=== PATIENT | male | born 1940 | race Caucasian/White ===

== ENCOUNTER 2020-01-31 11:34 | Outpatient (CLI) | payer MEDICARE, SELFPAY ==
[2020-01-31 14:04] LABS: Prostate Specific Antigen 0.6 ng/mL (< OR = 4.0)
== END 2020-01-31 11:35 | disposition home or self-care (01) ==
PROVIDERS: PCP Family Medicine; Visit Provider Physician Assistant Medical
DX: N40.0 Benign prostatic hyperplasia without lower urinary tract symptoms (principal); R35.0 Frequency of micturition
CPT/HCPCS: 36415; 84153

== ENCOUNTER 2024-08-16 14:54 | Outpatient (CLI) | payer MEDICARE, SELFPAY ==
--- NOTE | ~2024-08-16 | MR_ITS ---
MRI of the brain Clinical History: Amnesia Technique: Axial and sagittal T1-weighted images were acquired. These were followed by axial T2-weigh vernon, diffusion weighted, gradient, and FLAIR images. Following intravenous administration of 12 cc Pr oHance gadolinium, T1-weighted fat-sat imaging was performed in the axial and coronal planes. Findings: There is a 6 mm enhancing mass in the right side of the dano (series 8 image 7). No other a bnormal postcontrast enhancement identified. There is no acute infarct or intracranial hemorrhage. There are mild chronic microvascular ischemic c hanges in the periventricular white matter bilaterally. Ventricles and subarachnoid spaces are dilated. Orbits are unremarkable. Paranasal sinuses and mastoi d air cells are clear. Major intracranial flow voids are intact. Sagittal midline structures are intact. IMPRESSION: 6 mm enhancing mass in the right side of the dano. This is suspicious for metastasis until proven oth erwise. Reviewed, dictated and finalized at [facility]. IMPRESSION: 6 mm enhancing mass in the right side of the dano. This is suspicious for metas tasis until proven otherwise.
--- OUTSIDE RECORDS SUMMARY | 2024-08-16 15:22 | XMS_ITS | Encounter Summary ---
Author Organization [facility] Address [address] [place] [address] Phone Care Team Providers Care Priming Machine Operator Name Role Phone Bryan Hodgson MD Primary Care Provider [phone] Reason for Visit * Reason Comments Medication Refill Encounter Details Date Type Department Care Team (Late st Contact Info) Description 03/09/2022 Refill [facility] [address] [place] [address] Bryan Hodgson MD [address] [place], [place] [address] Medication Refill Social History Tobacco Use Types Packs/Day Years Used Date Smoking Tobacco: Former Cigarettes 0.5 3 0 01/30/2008 - 2011 Smokeless Tobacco: Never Alcohol Use Standard Drinks/Week Comments Yes 4.2 (1 standard drink = 0.6 oz p ure alcohol) PHQ-2 Answer Date Recorded Total Score - Questions 1-9 0 10/08 Sex and Gender Information Value Date Recorded Sex Assigned at Not on file 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 * Telephone Encounter - Ning Salas RN - 03/09/2022 2:11 PM CDT Last filled on 12/16/21 Last office visit on 01/27/22 documented in this encounter Plan of Treatment Not on file documented as of this encounter Visit Diagnoses Diagnosis Reactive depression Dysthymic disorder documented in this encounter Additional Health Concerns Infection Onset Date Last Indicated Resolved Time COVID - 19 04/12/2022 04/12/2022 04/22/2022 12:1 9 AM ARCHITECTURAL DRAFTSMAN COVID - 19 Confirmed 04/12/2022 04/12/2022 022 12:16 AM ARCHITECTURAL DRAFTSMAN COVID - 19 06/22/2022 06/22/2022 07/02/2022 12:1 6 AM ARCHITECTURAL DRAFTSMAN COVID - 19 06/30/2023 06/30/2023 06/30/2023 2:00 PM ARCHITECTURAL DRAFTSMAN Respiratory Rule-Out 06/08/2024 06/08/2024 025 4:15 PM ARCHITECTURAL DRAFTSMAN Influenza 06/08/2024 06/08/2024 06/15/2024 12:1 6 AM ARCHITECTURAL DRAFTSMAN Assessment Noted Time PHQ-9 Depression Total Score: 0 10/21/19 21 7:00 AM CDT documented as of this encounter Care Teams Priming Machine Operator Relationship Specialty Start Date End Date Bryan Hodgson MD [address] [place] [address] PCP - General 05/11/07 documented as of this encounter
--- OUTSIDE RECORDS SUMMARY | 2024-08-16 15:22 | XMS_ITS | Encounter Summary ---
Author Organization [facility] Address [address] 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 documented in this encounter Additional Health Concerns Infection Onset Date Last Indicated Resolved Time COVID - 19 06/30/2023 06/30/2023 06/30/2023 2:00 PM LICENSED CLUB MANAGER Respiratory Rule-Out 06/08/2024 06/08/2024 025 4:15 PM LICENSED CLUB MANAGER Influenza 06/08/2024 06/08/2024 06/15/2024 12:1 6 AM LICENSED CLUB MANAGER Assessment Noted Time PHQ-9 Depression Total Score: 0 10/21/19 21 7:00 AM CDT documented as of this encounter Care Teams Russet Repairer Relationship Specialty Start Date End Date Bryan Hodgson MD [address] [place] [address] PCP - General 05/11/07 documented as of this encounter
--- OUTSIDE RECORDS SUMMARY | 2024-08-16 15:22 | XMS_ITS | Encounter Summary ---
Author Organization [facility] Address [address] [place] [address] Phone Care Team Providers Care Surface Lay Out Technician Name Role Phone Bryan Hodgson MD Primary Care Provider Reason for Referral * - Pending Review Specialty Diagnoses / Procedures Referred By Ana guillory Referred To Contact Diagnoses Right knee pain, unspecified chronicity Left knee pain, unspecified chronicity Procedures XR KNEE LEFT 3 VIEWS XR KNEE BILATERAL Raiza Diana APRN [address] [place] [address] Phone: tel: fax: [facility] [address] [place] [address] Phone: tel: Referral ID Status Reason Start Date Expiration Date V isits Requested Visits Authorized [id number] Pending Review 10/19/2023 1 1 Encounter Details Date Type Department Care Team (Late st Contact Info) Description 10/20/2023 Transcribe Orders NON [facility] REFERRING DOCS [address] [place] [address] Raiza Diana APRN [address] [place], [place] [id number] Right knee pain, unspecified chronicity (Primary Dx); Left knee pain, unspecified chronicity Social History Tobacco Use Types Packs/Day Years Used Date Smoking Tobacco: Never Assessed Sex and Gender Information Value Date Recorded Sex Assigned at Not on file Legal Sex Male 5:50 PM CDT Gender Identity Not on file Sexual Orientation Not on file documented as of this encounter Plan of Treatment Not on file documented as of this encounter Results * XR KNEE LEFT 3 VIEWS (10/20/2023 7:30 AM CDT) Anatomical Region Laterality Modality Knee Digital Radiogra phy 10/20/2023 7:10 AM CDT Narrative 10/20/2023 8:13 AM CDT Accession Exam Completed Date/Time [id number] XR KNEE LEFT 3 VIEWS 10/20/2023 07:30 Requesting: RAIZA DIANA XR KNEE RIGHT 3 VIEWS, XR KNEE LEFT 3 VIEWS. 10/20/2023 7:10 AM CLINICAL INDICATION: Bilateral knee pain COMPARISON: None. FINDINGS/ IMPRESSION: AP, lateral and sunrise views of both hips were performed. No acute fracture or dislocation. Severe degenerative changes of both knees is seen with bilateral joint space narrowing, most pronounced in the medial tibiofemoral and patellofemoral compartments. There is bilateral [id number] appearance of the medial tibiofemoral compartments. There is osteophytic spurring of the tibial spines. No sizable suprapatellar joint knee joint effusion on either side. Electronically Signed and Authenticated by Linden Lamb MD 10/20/2023 08:13 Procedure Note Linden Lamb MD - 10/20/2023 Accession Exam CompletedDate/Time [id number] XR KNEE LEFT 3 VIEWS 407:30 Requesting: RAIZA DIANA XR KNEE RIGHT 3 VIEWS, XR KNEE LEFT 3 VIEWS. 10/20/2023 7:10 AM CLINICAL INDICATION: Bilateral knee pain COMPARISON: None. FINDINGS/ IMPRESSION: AP, lateral and sunrise views of both hips were performed. No acute fracture or dislocation. 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 There is [id number] appearance of the medial tibiofemoral compartments. There is osteophytic spurring of the tibialspines. No sizable suprapatellar joint knee joint effusion on eitherside. Electronically Signed and Authenticated by Linden Lamb MD 10/20/2023 08:13 Raiza Diana UNIFORMS SALES REPRESENTATIVE X-RAY Final R esult documented in this encounter Visit Diagnoses Diagnosis Right knee pain, unspecified chronicity- Primary Left knee pain, unspecified chronicity documented in this encounter Additional Health Concerns Infection Onset Date Last Indicated Resolved Time Suspected COVID-19 04/15/2024 04/15/2024 10:24 AM RETAIL SERVICE SPECIALIST documented as of this encounter Care Teams Surface Lay Out Technician Relationship Specialty Start Date End Date Bryan Hodgson MD [facility] [place] [address] [place] [address] PCP - General Family Medicine 08/24/22 documented as of this encounter
--- OUTSIDE RECORDS SUMMARY | 2024-08-16 15:22 | XMS_ITS | Encounter Summary ---
Author Organization [facility] Address [address] 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 No / Unsure 07/19/2022 7:53 AM CDT documented as of this encounter Miscellaneous Notes * Telephone Encounter - Diana, Raiza Carlos APRN, CNP - 07/21/2022 11:06 AM CDT Rx approved and sent to pharmacy via e-prescribe. * Telephone Encounter - Ning Salas RN - 07/21/2022 9:44 AM CDT Last filled on 05/26/22 Last office visit on 07/19/22 documented in this encounter Plan of Treatment Not on file documented as of this encounter Visit Diagnoses Diagnosis Type 2 diabetes mellitus without complication, with long-term current use of insulin- Primary documented in this encounter Additional Health Concerns Infection Onset Date Last Indicated Resolved Time COVID - 19 06/30/2023 06/30/2023 06/30/2023 2:00 PM GAS STATION CASHIER Respiratory Rule-Out 06/08/2024 06/08/2024 025 4:15 PM GAS STATION CASHIER Influenza 06/08/2024 06/08/2024 06/15/2024 12:1 6 AM GAS STATION CASHIER Assessment Noted Time PHQ-9 Depression Total Score: 0 10/21/19 21 7:00 AM CDT documented as of this encounter Care Teams Data Integrity Specialist Relationship Specialty Start Date End Date Bryan Hodgson MD [facility] [place] [address] [place] [address] PCP - General 05/11/07 documented as of this encounter
--- OUTSIDE RECORDS SUMMARY | 2024-08-16 15:22 | XMS_ITS | Clinical Summary ---
Author Organization [facility] Address [address] [place] [id number] Care Team Providers Care Research Professor Name Role Phone No, Physician Primary Care Provider [phone] Allergies No known active allergies Medications brimonidine (ALPHAGAN) 0.2 % ophthalmic solution INSTILL 1 DROP INTO EACH EYE THREE TIMES DAILY 5 Active FreeStyle Lite Strips strip USE 1 STRIP TO CHECK GLUCOSE DAILY 5 Active Cosopt 22.3-6.8 mg/mL ophthalmic solution Administer 1 drop into affected eye(s) 3 (three) times a day 3 Active traZODone (DESYREL) 50 mg tablet Take 1 tablet (50 mg total) by mouth nightly 3 Active tamsulosin (FLOMAX) 0.4 mg extended release capsule Take 1 capsule (0.4 mg total) by mouth daily 3 Active latanoprost (XALATAN) 0.005 % ophthalmic solution Administer 1 drop into affected eye(s) nightly 3 Active LANTUS 100 unit/mL (3 mL) pen for injection INJECT 25 UNITS SUBCUTANEOUSLY NIGHTLY 3 Active gabapentin (NEURONTIN) 100 mg capsule Take 1 capsule (100 mg total) by mouth nightly 4 Active metFORMIN (GLUCOPHAGE) 1,000 mg tablet Take 1 tablet (1,000 mg total) by mouth 3 Active predniSONE (DELTASONE) 50 mg tablet 5 Active pramipexole (MIRAPEX) 0.25 mg tablet Take 1 tablet (0.25 mg total) by mouth 2 Active pioglitazone (ACTOS) 30 mg tablet Take 1 tablet (30 mg total) by mouth daily 3 Active acetaminophen (Tylenol Extra Strength) 500 mg tablet Take 2 tablets (1,000 mg total) by mouth as needed Active Active Problems Problem Noted Date Diagnosed Date Lung disorder 08/07/2024 Lung mass 08/07/2024 Encounters Date Type Department Care Team Description 08/13/2024 3:08 PM CDT - 08/13/2024 11:59 PM CDT Hospital Encounter [facility] Radiology [address] [place] [address] Arrived Discharge Disposition: Discharge to home or self care 08/13/2024 12:44 PM CDT - 08/13/2024 11:59 PM CDT Hospital Encounter [facility] Interventional Pulmonology 1 [place] [address] Discharge Disposition: Discharge to home or self care 08/10/2024 Documentation [facility] Interventional Pulmonology 1 [place] [address] Evelyn Hale RN 08/07/2024 2:20 PM CDT - 08/07/2024 11:59 PM CDT Hospital Encounter [facility] ([facility]) [address] [place] [id number] Discharge Disposition: Discharge to home or self care 08/07/2024 2:18 PM CDT - 08/07/2024 11:59 PM CDT Hospital Encounter [facility] Rad[facility] ([facility]) [address] [place] [id number] Discharge Disposition: Discharge to home or self care 08/07/2024 9:00 AM CDT Office Visit [facility] Pulmonary [address] [facility] 8th [place] [address] [place] [address] Donis Dodge Chi, MD Lung disorder 08/07/2024 7:57 AM CDT - 08/07/2024 11:59 PM CDT Hospital Encounter [facility] Pulmonary [address] [facility] [address] [place] [address] Lung disorder Discharge Disposition: Discharge to home or self care 08/07/2024 7:40 AM CDT - 08/07/2024 11:59 PM CDT Hospital Encounter [facility] Radiology [facility] ([facility]) [address] [place] [address] Lung disorder Discharge Disposition: Discharge to home or self care 08/07/2024 Orders Only [facility] Pulmonary [address] [facility] 8th [place] [address] [place] [address] Ruby Arce, RMA Lung mass (Primary Dx) 08/03/2024 Orders Only [facility] Pulmonary [address] [facility] 8th [place] [address] [place] [address] Donis Dodge Chi, MD Lung disorder (Primary Dx) from Last 3 Months Surgical History Surgery Date Site/Laterality Comments HERNIA REPAIR Medical History Medical History Date Comments Diabetes mellitus (HCC) Social History Tobacco Use Types Packs/Day Years Used Date Smoking Tobacco: Every Day Cigarettes Smokeless Tobacco: Never Tobacco Cessation:Ready to Q uit: Not Asked; Counseling Given: Not Answered AUDIT-C Answer Date Recorded Q1: How often do you have a drink containing alc ohol? 2-4 times a month 08/13/2024 Q2: How many drinks containi ng alcohol do you have on a typical day when you are drinking? 1 or 2 08/13/2024 Q3: How often do you have si x or more drinks on one occasion? Never 08/13/2024 Hunger Vital Sign Answer Date Recorded Within the past 12 months, y ou worried that your food would run out before you got the money to buy more. Never true 08/14/19 25 Within the past 12 months, t he food you bought just didn't last and you didn't have money to get more. Never true 08/13/2024 Personal Safety Answer Date Recorded Have you ever been in or are you currently in a harmful physical or emotional relationship or is someone making you feel afraid or unsafe? Denies 08/13/2024 Sex and Gender Information Value Date Recorded Sex Assigned at Not on file Legal Sex Male 1:00 PM CDT Gender Identity Not on file Sexual Orientation Not on file Obstetrics History Last Filed Vital Signs Vital Sign Reading Time Taken Comments Blood Pressure 134/79 08/13/2024 3:40 PM CDT Pulse 83 08/13/2024 3:40 PM CDT Temperature 36.7 C (98 F) 08/13/2024 3:17 PM CDT Respiratory Rate 27 08/13/2024 3:40 PM CDT Oxygen Saturation 93% 08/13/2024 3:40 PM CDT Inhaled Oxygen Concentration - - Weight 60.3 kg (133 lb) 08/13/2024 1:05 PM CDT Height 167.6 cm (5' 6 ) 08/13/2024 1:05 PM CDT Body Mass Index 21.47 08/13/2024 1:05 PM CDT Plan of Treatment Health Maintenance Due Date Last Done Comments Depression Screening 1940 DTaP/Tdap/Td Vaccine (1 - Tdap) 01/28/1951 Hepatitis B Screening 01/28/1958 Zoster Vaccine (1 of 2) 01/28/1990 Well Visit 65+ 01/28/2005 Covid-19 Vaccine (3 - season) 2024, 07/31/2020 Fall Risk Assessment 08/13/2025 08/13/2024 Influenza Vaccine Completed 01/16/2024 Pneumococcal vaccine 65+ Completed 01/16/2024 Procedures Procedure Name Priority Date/Time Associated Diagnosis Comments XR CHEST 1 VIEW IP Routine 08/13/2024 3:31 PM CDT SURGICAL PATHOLOGY Routine 08/13/2024 2: 58 PM CDT CYTOLOGY Routine 08/13/2024 2:40 PM CDT BRONCHOSCOPY Routine 08/13/2024 1:55 PM CDT POCT GLUCOSE DEVICE Routine 08/13/2024 1 :[address] BODY OUTSIDE REFERENCE Routine 08/07/2024 2:20 PM CDT XR TRANSFER OF OUTSIDE FILMS Routine 08/07/2024 2:18 PM CDT PULMONARY FUNCTION TEST (PFT) Routine 08/07/2024 9:08 AM CDT Lung disorder XR CHEST PA LATERAL 2 VIEWS Schedule Routine, Read Routine (OP Routine) 08/07/2024 7:45 AM CDT Lung disorder from Last 3 Months Results * XR Chest 1 View (08/13/2024 3:31 PM CDT) Anatomical Region Laterality Modality Body, Chest N/A Computed Radiogr aphy 08/13/2024 3:38 PM CDT Impressions 08/13/2024 3:38 PM CDT The current study is compared with the prior radiograph dated 08-07-24. Again seen is a large central cavitary mass in the right middle lobe with post obstructive collapse of the right middle lobe There is probably a small Right effusion however there is no pneumothorax. Left lung is normal. the cardiomediastinal silhouette is partially obscured. Electronically signed by: Malorie Castillo M.D. Narrative 08/13/2024 3:38 PM CDT EXAMINATION: 1 view chest radiograph Procedure Note Malorie Castillo MD - 08/13/2024 EXAMINATION: 1 view chest radiograph IMPRESSION: The current study is compared with the prior radiograph dated 08-07-24. Again seen is a large central cavitary mass in the right middle lobe with post obstructive collapse of the right middle lobe There is probably a small Right effusion however there is no pneumothorax. Left lung is normal. the cardiomediastinal silhouette is partially obscured. Electronically signed by: Malorie Castillo M.D. Silvia Pickens MD IMG XR PROCEDURES Final Result * Surgical pathology (08/13/2024 2:58 PM CDT) Tissue (Lung Biopsy) 08/13/2024 2:58 PM CDT 08/13/2024 6:08 PM CDT Narrative PATHOLOGY [facility] - 08/14/2024 1:23 PM CDT EPIC results best viewed via link to PDF [facility] of Surgical Pathology [address] [facility], [place] [address] Note to Patients: This report may contain a detailed description of human tissue sent by a health care provider to the laboratory for pathologic evaluation. The content of this report is essential for diagnosis and may provide important critical findings. This information may be unfamiliar to patients to review without a medical professional present. It is advised that the patient review this report in the presence of a health care provider who can answer questions and explain the details. SURGICAL PATHOLOGY REPORT FINAL Patient Name: DONNELL WAYNE Gender: M : 1940 (Age: 84) Address: [address] [place] [address] Hospital #: [id number] Taken:08/13/2024 Received:08/13/2024 Reported: 08/14/2024 Patient Type: [facility] Ancillary Service: Pulmonary Location: Physician(s): Grazyna Higgins M.D. Diagnosis: A. Lung, right, biopsy: - Squamous cell carcinoma ctb08/14/2024 13:23 By this signature, I attest that the above diagnosis is based upon my personal examination of the slides(and/or other material indicated in the diagnosis). Alejandro Loaiza M.D. Report Electronically Reviewed and Signed Out By Alejandro Loaiza M.D. 08/14/2024 13:23:20 History: The patient is an 84-year-old man presenting with lung mass. Operative procedure: Bronchoscopy with biopsy. Specimen(s) Received: A: Right lung mass Gross Description: Received in formalin, labeled with the patient s identifiers and cores right lung mass are multiple cores and fragments of tissue admixed with hemorrhagic material (3.8 x 2.8 x 0.2 cm in aggregate). Labeled A1. Jar 0. sxst/08/13/2024 19:22 PA(s): Lucinda Stackle By this signature, I attest that the above diagnosis is based upon my personal examination of the slides(and/or other material). Addenda/Procedures The performance characteristics of some immunohistochemical stains, fluorescence in-situ hybridization tests and immunophenotyping by flow cytometry cited in this report (if any) were determined by the Surgical Pathology and Flow Cytometry Departments at [facility] as part of an ongoing quality improvement coordinator (rn) program and in compliance with federally mandated regulations drawn from the Clinical Laboratory Improvement Act of 1988 (CLIA '88). Some of these tests rely on the use of analyte specific reagents and are subject to specific labeling requirements by the US Food and Drug Administration. Such diagnostic tests may only be performed in a facility that is certified by the Department of Health and Human Services as a high complexity laboratory under CLIA '88. The FDA has determined that such clearance or approval is not necessary. This test is used for clinical purposes. It should not be regarded as investigational or for research. Nevertheless, federal rules concerning the medical use of analyte specific reagents require that the following disclaimer be attached to the report: This test was developed and its performance characteristics determined by the Surgical Pathology and Flow Cytometry Departments of [facility]. It has not been cleared or approved by the U. S. Food and Drug Administration. IMAGES AND SCANNED DOCUMENTS, IF INCLUDED, ONLY VIEWABLE IN PDF VERSION OF REPORT Luis Gomez MD LAB PATHOLOGY ORDERABLES Final Result PATHOLOGY [facility] 3rd Floor [place], [place] [phone] * Cytology (08/13/2024 2:40 PM CDT) Fluid (Lung (Cytology)) 08/13/2024 2:40 PM CDT 08/13/2024 3:23 PM CDT Narrative PATHOLOGY [facility] - 08/14/2024 4:17 PM CDT EPIC results best viewed via link to PDF [facility] [place] [address] Note to Patients: This report may contain a detailed description of human tissue sent by a health care provider to the laboratory for pathologic evaluation. The content of this report is essential for diagnosis and may provide important critical findings. This information may be unfamiliar to patients to review without a medical professional present. It is advised that the patient review this report in the presence of a health care provider who can answer questions and explain the details. CYTOPATHOLOGY REPORT FINAL Patient Name: DONNELL WAYNE Gender: M : 1940 (Age: 84) Address: [address] [place], [place] [address] Hospital #: [id number] Taken:08/13/2024 Received:08/13/2024 Reported: 08/14/2024 Patient Type: [facility] Ancillary Service: UNKNOWN Location: Physician(s): Luis Gomez M.D. FINAL DIAGNOSIS A. Lung, right, mass, endobronchial ultrasound-guided fine needle aspiration: - Squamous cell carcinoma Comments The aspirate smears and cell block show abundant groups of malignant cells with enlarged, irregular nuclei, varying degrees of hyperchromasia and vesicular chromatin, and distinct cytoplasmic borders. The findings are consistent with squamous cell carcinoma. pamo/08/14/2024 12:26 By this signature, I attest that the above diagnosis is based upon my personal examination of the slides(and/or other material indicated in the diagnosis). Stephen Sykes DO Report Electronically Reviewed and Signed Out By Stephen Sykes DO 08/14/2024 16:17:45 ACOSTA Silvestre([facility]) Gross Description A. Lung, right, mass, endobronchial ultrasound guided fine needle aspiration: 2 Pap stained smear(s) and 2 Diff-Quik stained smear(s). 1 cell block prepared from needle rinse tube. Aspirated by clinician. (rm) Clinical Diagnosis and History The patient is a 84-year-old man with a lung mass. Immediate Evaluation A. Lung, right, mass, endobronchial ultrasound guided fine needle aspiration: Evaluation Episode 1 Overall Adequacy: Adequate Total Evaluation Episodes: 1 Preliminary Diagnosis: Non-small cell carcinoma Stephen Sykes D.O. 08/13/2024 REPORT IMAGES AND SCANNED DOCUMENTS, IF INCLUDED, ONLY VIEWABLE IN PDF VERSION OF REPORT The performance characteristics of some immunohistochemical stains, in-situ hybridization and fluorescence in-situ hybridization tests and immunophenotyping by flow cytometry cited in this report (if any) were determined by the Surgical Pathology and Flow Cytometry Departments at [facility] as part of an ongoing quality improvement coordinator (rn) program and in compliance with federally mandated regulations drawn from the Clinical Laboratory Improvement Act of 1988 (CLIA '88). Some of these tests rely on the use of analyte specific reagents and are subject to specific labeling requirements by the US Food and Drug Administration. Such diagnostic tests may only be performed in a facility that is certified by the Department of Health and Human Services as a high complexity laboratory under CLIA '88. The FDA has determined that such clearance or approval is not necessary. This test is used for clinical purposes. It should not be regarded as investigational or for research. Nevertheless, federal rules concerning the medical use of analyte specific reagents require that the following disclaimer be attached to the report: This test was developed and its performance characteristics determined by the Surgical Pathology and Flow Cytometry Departments of [facility]. It has not been cleared or approved by the U. S. Food and Drug Administration. Luis Gomez MD LAB CYTOLOGY ORDERABLES F inal Result PATHOLOGY [facility] 3rd Floor [place], [place] [phone] * Bronchoscopy - (08/13/2024 1:55 PM CDT) Anatomical Region Laterality Modality Other Narrative Procedure Note Luis Gomez MD - 08/13/2024 1:55 PM CDT [facility] Interventional Pulmonary Patient Name: Donnell Wayne Procedure Date: 08/13/2024 1:55 PM Date of : 1940 Admit Type: Outpatient Age: 84 Room: ROOM 2 Gender: Male Note Status: Finalized Procedure: Bronchoscopy LINEAR EBUS Indications: Right lung mass Providers: Luis Gomez M.D. Referring MD: Olvin Harkins NP Complications: No immediate complications Procedure: After obtaining informed consent, the Bronchoscopewas introduced through the mouth, via laryngeal mask airway and advanced to the tracheobronchial tree of both lungs. the Bronchoscope was introduced through the and advanced to the. Estimated Blood Loss: Estimated blood loss was minimal. Findings: 1. AIRWAY INSPECTION ---The trachea is of normal caliber. The cedric is sharp. The tracheobronchial tree was examined to at least the first subsegmental level. Bronchial mucosa and anatomy are normal; there are no endobronchial lesions, and no secretions. 2. LINEAR EBUS-TBNA of right lung mass --- The linear array EBUS scope was introduced through the mouth tothe right lung. A mass was identified using EBUS at this station. ---Transbronchial needle aspiration using a 22 guage aspirationneedle times 3 was performed at the right lung mass under continuous endobronchial ultrasound guidance. Moderate Sedation: I personally provided direct face to face monitoring of conscious sedation administered by an independently trained nurse/respiratory therapist using: fentanyl mcg 150 REMIMAZOLAM mg 15 total sedation time (min) 37 Impression: 1. AIRWAY INSPECTION 2. LINEAR EBUS-TBNA of right lung mass Attending Participation: I was present and participated during the entire procedure, including non-ko portions. Electronically signed by Luis Gomez MD Luis Gomez M.D. 08/13/2024 3:08:11 PM Number of Addenda: 0 Note Initiated On: 08/13/2024 1:17 PM Luis Gomez MD BRONCH ORDERABLES Final R esult * (ABNORMAL) POCT glucose (08/13/2024 1:07 PM CDT) Glucose, POC 250(H) 70 - 199 mg/dL Blood 08/13/2024 1:07 PM CDT 08/13/2024 1:07 PM CDT Luis Gomez MD LAB POCT ORDERABLES - DEV ICE Final Result Performing Organization Address [facility] Co de Phone Number [facility] Department [place] [address] * CT Body Outside Reference (08/07/2024 2:20 PM CDT) Impressions RAD_PACS[facility] - 08/07/2024 2:20 PM CDT These images are for Reference purposes only and have not been reviewed by [facility] Radiology. There will be no report generated by a [facility] Radiologist. Narrative [facility] - 08/07/2024 2:20 PM CDT EXAMINATION: Images For Reference Purposes Only Donis Dodge MD IMG CT PROCEDURES Final Re sult [facility] * XR Outside Reference (08/07/2024 2:18 PM CDT) Impressions [facility] - 08/07/2024 2:18 PM CDT These images are for Reference purposes only and have not been reviewed by [facility] Radiology. There will be no report generated by a [facility] Radiologist. Narrative [facility] - 08/07/2024 2:18 PM CDT EXAMINATION: Images For Reference Purposes Only us Donis Dodge MD IMG XR PROCEDURES Final Re sult [facility] * Pulmonary Function Test - (08/07/2024 9:08 AM CDT) FVC PRE 1.67 L [facility] FVC %PRE PRED 52 % [facility] FVC POST 1.68 L [facility] FVC %POST PRED 53 % [facility] FEV1 PRE 1.06 L [facility] FEV1 %PRE PRED 45 % [facility] FEV1 POST 1.06 L [facility] FEV1 %POST PRED 45 % [facility] FEV1/FVC PRE 63.5 % [facility] FEV1/FVC POST 63.0 % [facility] FRC PL PRE 4.[address] [facility] FRC PL %PRE PRED 143 % [facility] RV PRE 4.04 L [facility] RV %PRE PRED 159 % [facility] TLC PRE 5.58 L [facility] TLC %PRE PRED 89 % [facility] Anatomical Region Laterality Modality PFT 08/07/2024 8:13 AM CDT Narrative 08/07/2024 4:02 PM CDT Table formatting from the original result was not included. [facility] Division of Pulmonary & Critical Care Medicine [address] [place] [address]; [place] [facility]; [place] [address]; [phone] Pulmonary Function Laboratory Pulmonary Stress Test Simple/Oxygen Assessment Patient: Donnell Wayne Date: 08/07/2024 : 1940 Ht: 66 IN Wt: 133 LBS Time (min) Distance (ft)/ Santana O2 L/M SpO2 HR Natacha* BP FEV1 % Pred Rest: 21% 95 81 0 136/79 1.06 45% Walk/Bike: 1 21% 96 86 0 2 21% 93 87 0 3 21% 94 88 0 4 21% 93 89 0 5 21% 92 90 0 6 min 0 sec 21% 92 91 0 Recovery: 1 21% 93 85 0 151/76 0.92 39% 3 21% 92 84 0 *Natacha rate of perceived exertion (1-10 dyspnea scale) Tyson, CHEST 2003; [id number] Walk Test Summary: Six Minute Walk Distance: 830 ft Six-minute Walk Work [distance (m) x body wt (kg)]: 71786 kg.m (normal >60,000kg.m) Oxygen required to maintain SpO2 greater than 90% during six minutes of walkin L/M Comments: Interpretation: Breathing room air, SpO2 is normal at rest. During exercise sufficient to increase pulse, SpO2 is stable. On this basis, SpO2 is adequate at rest breathing room air and while walking breathing room air. This level of exercise is associated with no significant change of FEV1. Edy Tai MD By signing this report, the attending pulmonary physician certifies that he has personally reviewed and interpreted the graphic and numerical data associated with this pulmonary function study and has reviewed and /or edited a preliminary draft report and agrees with the written final report. PFT performed at:->[facility] Adult PFT Lab- [facility] Procedure:->Spirometry Procedure:->Spirometry with Bronchodilator Procedure:->DLCO Procedure:->Lung Volumes Procedure:->Pulse Ox Procedure:->Oxygen Assessment Titration Lung Volumes via:->Pleth with Airway Resistance DLCO:->Spirometry Pulmonary Function Test Interpretation SPIROMETRY: There is a decrease in expiratory airflow at high lung volumes. There is a decrease in expiratory airflow at middle lung volumes. The FEV1 to FVC ratio is above the lower limit of normal but below the fixed ratio of 0.70. The decreased expiratory flow and FEV1 and FVC are consistent with a combined restrictive and obstructive abnormality. There is no significant improvement after inhaling a single dose of albuterol. The inspiratory loop is appropriate for the expiratory flow abnormality. LUNG VOLUMES: TLC measured by plethysmography is normal. The increased RV suggests air trapping. PULSE OXIMETRY: See Oxygen Assessment/Cardiopulmonary Exercise Study-Simple Impression: There is a non-specific ventilatory defect. There is air trapping. Edy Tai MD The attending pulmonary physician certifies a physician presence in the [facility] Suite during the administration of aerosolized bronchodilator. The attending pulmonary physician certifies that he has reviewed and interpreted the graphic and numerical data of this pulmonary function study and agrees with the written final report. The lower limit of normal for PaO2 and %HbO2 is age dependent. However, the [facility] Pulmonary Function Laboratory defines hypoxemia as a PaO2 <56 mm Hg or a %HbO2 <89%. Starting on May of 2024 the [facility] Pulmonary Function Laboratory utilizes race neutral GLI Global normative equations. us Donis Dodge MD PFT ORDERABLES Final Resu lt * XR Chest Pa Lateral 2 Views (08/07/2024 7:45 AM CDT) Anatomical Region Laterality Modality Body, Chest N/A Computed Radiogr aphy 08/07/2024 8:01 AM CDT Impressions 08/07/2024 8:13 AM CDT No comparisons are available. There is a cavitary lesion noted within the right middle lung zone without air-fluid level. The lesion measures 3.0 x 2.1 x 4.1 cm and possibly represents a pulmonic abscess or cavitary lung mass. Further assessment with CT is advised. Right lower lobe consolidation with a moderate right-sided pleural effusion, possibly representing postobstructive changes or pneumonia. Left lung is clear. No pneumothorax. Electronically signed by: Stephen Munoz M.D. Narrative 08/07/2024 8:13 AM CDT EXAMINATION: 2 view chest radiograph Procedure Note Stephen Munoz MD - 08/07/2024 EXAMINATION: 2 view chest radiograph IMPRESSION: No comparisons are available. There is a cavitary lesion noted within the right middle lung zone without air-fluid level. The lesion measures 3.0 x 2.1 x 4.1 cm and possibly represents a pulmonic abscess or cavitary lung mass. Further assessment with CT is advised. Right lower lobe consolidation with a moderate right-sided pleural effusion, possibly representing postobstructive changes or pneumonia. Left lung is clear. No pneumothorax. Electronically signed by: Stephen Munoz M.D. 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
--- OUTSIDE RECORDS SUMMARY | 2024-08-16 15:22 | XMS_ITS | Encounter Summary ---
Author Organization [facility] Address [address] [place] [address] Phone Care Team Providers Care Utility Gelatin Maker Name Role Phone Bryan Hodgson MD Primary Care Provider [phone] Reason for Visit * Reason Comments Medication Refill Encounter Details Date Type Department Care Team (Late st Contact Info) Description 05/26/2022 Refill [facility] [address] [place] [address] Raiza Diana APRN, PLASTICS WORKER [address], [place] [id number] Medication Refill Social History Tobacco Use Types [...] on file Legal Sex Male 2:44 AM BRAKE LINING FINISHER ASBESTOS Gender Identity Not on file Sexual Orientation Not on file documented as of this encounter Miscellaneous Notes * Telephone Encounter - Raiza Diana APRN, AMY - 05/26/2022 4:32 PM BRAKE LINING FINISHER ASBESTOS Rx approved and sent to pharmacy via e-prescribe. E LINING FINISHER ASBESTOS * Telephone Encounter - Janna Wills RN - 05/26/2022 4:19 PM CST Updated dose on order to reflect current dose. Disp Refills Start End insulin glargine (LANTUS, BASAGLAR) 100 UNIT/ML Solution Pen-injector 15 mL 2 01/28/2022 Sig - Route: 20 Units by Subcutaneous route every evening. - Subcutaneous Class: No Print Order Questions insulin glargine (LANTUS, BASAGLAR) 100 UNIT/ML Solution Pen-injector [[id number]] 46 Status: Active Ordering user: Emmy Rockwell RN 01/28/221146 Ordering provider: Raiza Diana APRN, CNP Authorized by: Raiza Diana APRN, CNP Frequency: QPM 01/28/22 - Until Discontinued Medication failed the protocol, provider to review and approve the medication order if appropriate. Requested Prescriptions Pending Prescriptions Disp Refills Lantus SoloStar 100 UNIT/ML Solution Pen-injector [Pharmacy Med Name: Lantus SoloStar 100 UNIT/ML Subcutaneous Solution Pen-injector] 15 mL 0 Si Units by Subcutaneous route every evening. Not Delegated - Insulin Protocol Failed - 05/26/2022 2:43 PM Failed - This refill cannot be delegated Passed - Visit with relevant provider in past 12 months or upcoming 90 days Recent Visits Date Type Provider Dept 04/12/22 Office Visit Bryan Hodgson MD [facility] 01/27/22 Office Visit Raiza Diana APRN, CNP [facility] 10/26/21 Office Visit Bryan Hodgson MD [facility] Showing recent visits within past 365 days and meeting all other requirements Future Appointments Date Type Provider Dept 07/19/22 Appointment Raiza Diana APRN, CNP [facility] Showing future appointments within next 90 days and meeting all other requirements tamsulosin (FLOMAX) 0.4 MG Capsule [Pharmacy Med Name: Tamsulosin HCl 0.4 MG Oral Capsule] 90 Capsule 0 Sig: Take 1 capsule by mouth once daily Benign Prostatic Hyperplasia Medications Protocol Passed - 05/26/2022 2:43 PM Passed - Visit with relevant provider in past 12 months or upcoming 90 days Recent Visits Date Type Provider Dept 04/12/22 Office Visit Bryan Hodgson MD [facility] 01/27/22 Office Visit Raiza Diana APRN, AMY [facility] 10/26/21 Office Visit Bryan Hodgson MD [facility] Showing recent visits within past 365 days and meeting all other requirements Future Appointments Date Type Provider Dept 07/19/22 Appointment Raiza Diana APRN, AMY [facility] Showing future appointments within next 90 days and meeting all other requirements E LINING FINISHER ASBESTOS documented in this encounter Plan of Treatment Not on file documented as of this encounter Visit Diagnoses Diagnosis Benign non-nodular prostatic hyperplasia with lower urinary tract symptoms documented in this encounter Additional Health Concerns Infection Onset Date Last Indicated Resolved Time COVID - 19 06/22/2022 06/22/2022 07/02/2022 12:1 6 AM BRAKE LINING FINISHER ASBESTOS COVID - 19 06/30/2023 06/30/2023 06/30/2023 2:00 PM BRAKE LINING FINISHER ASBESTOS Respiratory Rule-Out 06/08/2024 06/08/2024 025 4:15 PM BRAKE LINING FINISHER ASBESTOS Influenza 06/08/2024 06/08/2024 06/15/2024 12:1 6 AM BRAKE LINING FINISHER ASBESTOS Assessment Noted Time PHQ-9 Depression Total Score: 0 10/21/19 21 7:00 AM CDT documented as of this encounter Care Teams Utility Gelatin Maker Relationship Specialty Start Date End Date Bryan Hodgson MD [address] [place] [id number] PCP - General 05/11/07 documented as of this encounter
--- OUTSIDE RECORDS SUMMARY | 2024-08-16 15:22 | XMS_ITS | Encounter Summary ---
Author Organization [facility] Address [address] [place] [address] Phone Care Team Providers Care Mainspring Winder Name Role Phone Bryan Hodgson MD Primary Care Provider [phone] Reason for Visit * Reason Comments Medication Refill Encounter Details Date Type Department Care Team (Late st Contact Info) Description 07/17/2020 Refill [facility] [address] [place] [address] Bryan Hodgson MD [address], [place] [id number] Medication Refill Social History Tobacco Use Types Packs/Day Years Used Date Smoking Tobacco: Former Cigarettes 0.5 3 0 01/30/2008 - 2011 Smokeless Tobacco: Never Alcohol Use Standard Drinks/Week Comments Yes 4.2 (1 standard drink = 0.6 oz p ure alcohol) PHQ-2 Answer Date Recorded PHQ-2 Score 05/30/2019 Sex and Gender Information Value Date Recorded Sex Assigned at Not on file Legal Sex Male 2:44 AM CARTON STAPLER Gender Identity Not on file Sexual Orientation Not on file documented as of this encounter Plan of Treatment Not on file documented as of this encounter Visit Diagnoses Not on filedocumented in this encounter Additional Health Concerns Infection Onset Date Last Indicated Resolved Time COVID - 19 04/12/2022 04/12/2022 04/22/2022 12:1 9 AM CARTON STAPLER COVID - 19 Confirmed 04/12/2022 04/12/202205/02/ 022 12:16 AM CARTON STAPLER COVID - 19 06/22/2022 06/22/2022 07/02/2022 12:1 6 AM CARTON STAPLER COVID - 19 06/30/2023 06/30/2023 06/30/2023 2:00 PM CARTON STAPLER Respiratory Rule-Out 06/08/2024 06/08/2024 025 4:15 PM CARTON STAPLER Influenza 06/08/2024 06/08/2024 06/15/2024 12:1 6 AM CARTON STAPLER Assessment Noted Time PHQ-9 Depression Total Score: 020 2:50 PM CARTON STAPLER documented as of this encounter Care Teams Mainspring Winder Relationship Specialty Start Date End Date Bryan Hodgson MD [facility] [address] PCP - General 05/11/07 documented as of this encounter
--- OUTSIDE RECORDS SUMMARY | 2024-08-16 15:22 | XMS_ITS | Encounter Summary ---
Author Organization [facility] Address [address] [place] [address] Phone Care Team Providers Care Police Magistrate Name Role Phone Bryan Hodgson MD Primary Care Provider [phone] Reason for Visit * Reason Comments Medication Refill Encounter Details Date Type Department Care Team (Late st Contact Info) Description 08/31/2021 Refill [facility] [address] [place] [address] Raiza Diana APRN, BIOLOGICAL TECHNICAL OFFICER [address] [place], [place] [address] Medication Refill Social History Tobacco Use Types Packs/Day Years Used Date Smoking Tobacco: Former Cigarettes 0.5 3 0 01/30/2008 - 2011 Smokeless Tobacco: Never Alcohol Use Standard Drinks/Week Comments Yes 4.2 (1 standard drink = 0.6 oz p ure alcohol) PHQ-2 Answer Date Recorded Total Score - Questions 1-9 0 10/07 Sex and Gender Information Value Date Recorded Sex Assigned at Not on file Legal Sex Male 2:44 AM SPINNING OPERATOR Gender Identity Not on file Sexual Orientation Not on file documented as of this encounter Miscellaneous Notes * Telephone Encounter - Raiza Diana APRN, BIOLOGICAL TECHNICAL OFFICER - 08/31/2021 12:07 PM CDT Rx approved and sent to pharmacy via e-prescribe. * Telephone Encounter - Ning Salas, RN - 08/31/2021 11:08 AM CDT Last filled on 06/09/21 Last office visit on 04/21/21 documented in this encounter Plan of Treatment Not on file documented as of this encounter Visit Diagnoses Diagnosis Reactive depression Dysthymic disorder Benign non-nodular prostatic hyperplasia with lower urinary tract symptoms documented in this encounter Additional Health Concerns Infection Onset Date Last Indicated Resolved Time COVID - 19 04/12/2022 04/12/2022 04/22/2022 12:1 9 AM SPINNING OPERATOR COVID - 19 Confirmed 04/12/2022 04/12/2022 022 12:16 AM SPINNING OPERATOR COVID - 19 06/22/2022 06/22/2022 07/02/2022 12:1 6 AM SPINNING OPERATOR COVID - 19 06/30/2023 06/30/2023 06/30/2023 2:00 PM SPINNING OPERATOR Respiratory Rule-Out 06/08/2024 06/08/2024 025 4:15 PM SPINNING OPERATOR Influenza 06/08/2024 06/08/2024 06/15/2024 12:1 6 AM SPINNING OPERATOR Assessment Noted Time PHQ-9 Depression Total Score: 0 10/21/19 21 7:00 AM CDT documented as of this encounter Care Teams Police Magistrate Relationship Specialty Start Date End Date Bryan Hodgson MD [address] [place] [address] PCP - General 05/11/07 documented as of this encounter
--- OUTSIDE RECORDS SUMMARY | 2024-08-16 15:22 | XMS_ITS | Encounter Summary ---
Author Organization [facility] Address [address] [place] [address] Phone Care Team Providers Care Head Baggage Porter Name Role Phone Bryan Hodgson MD Primary Care Provider [phone] Reason for Visit * Reason Comments Medication Refill Encounter Details Date Type Department Care Team (Late st Contact Info) Description 11/03/2021 Refill [facility] [address] [place] [address] Bryan Hodgson MD [address] [place], [place] [id number] Medication Refill Social History Tobacco Use Types [...] on file Legal Sex Male 2:44 AM SHIP BOSS Gender Identity Not on file Sexual Orientation Not on file COVID-19 Exposure Response Date Recorded In the last 10 days, have yo u been in contact with someone who was confirmed or suspected to have Coronavirus/COVID-19? No / Unsure 10/26/2021 7:55 AM CDT documented as of this encounter Miscellaneous Notes * Telephone Encounter - Raiza Diana, LAMP REPLACER, BRINE TANK OPERATOR - 11/04/2021 2:16 PM CDT Rx approved and sent to pharmacy via e-prescribe. * Telephone Encounter - Ning Salas, RN - 11/04/2021 12:38 PM CDT Received fax that patient would like 90 day supply of insulin Last filled on 06/09/21 Last office visit on 10/26/21 documented in this encounter Plan of Treatment Not on file documented as of this encounter Visit Diagnoses Diagnosis Type 2 diabetes mellitus without complication, with long-term current use of insulin documented in this encounter Additional Health Concerns Infection Onset Date Last Indicated Resolved Time COVID - 19 04/12/2022 04/12/2022 04/22/2022 12:1 9 AM SHIP BOSS COVID - 19 Confirmed 04/12/2022 04/12/2022 022 12:16 AM SHIP BOSS COVID - 19 06/22/2022 06/22/2022 07/02/2022 12:1 6 AM SHIP BOSS COVID - 19 06/30/2023 06/30/2023 06/30/2023 2:00 PM SHIP BOSS Respiratory Rule-Out 06/08/2024 06/08/2024 025 4:15 PM SHIP BOSS Influenza 06/08/2024 06/08/2024 06/15/2024 12:1 6 AM SHIP BOSS Assessment Noted Time PHQ-9 Depression Total Score: 0 10/21/19 21 7:00 AM CDT documented as of this encounter Care Teams Head Baggage Porter Relationship Specialty Start Date End Date Bryan Hodgson MD [facility] [place] [address] PCP - General 05/11/07 documented as of this encounter
--- OUTSIDE RECORDS SUMMARY | 2024-08-16 15:22 | XMS_ITS | Encounter Summary ---
Author Organization [facility] Address [address] [place] [address] Phone Care Team Providers Care Special Education Supervisor Name Role Phone Bryan Hodgson MD Primary Care Provider [phone] Reason for Visit * Reason Comments Medication Refill Encounter Details Date Type Department Care Team (Late st Contact Info) Description 02/19/2023 Refill [facility] [address] [place], [place] [address] Raiza Diana APRN, CANDY CUTTER HAND [address] [place], [place] [address] Medication Refill Social History Tobacco Use Types Packs/Day Years Used Date Smoking Tobacco: Former Cigarettes 0.5 3 0 01/30/2008 - 2011 Smokeless Tobacco: Never Comments:Smokes 4-5 cigs a d ay. Alcohol Use Standard Drinks/Week Comments Yes 4.2 (1 standard drink = 0.6 oz p ure alcohol) PHQ-2 Answer Date Recorded Total Score - Questions 1-9 0 10/08 Sex and Gender Information Value Date Recorded Sex Assigned at Not on file Legal Sex Male 2:44 AM SPONGE DIVER Gender Identity Not on file Sexual Orientation Not on file documented as of this encounter Miscellaneous Notes * Telephone Encounter - Raiza Diana APRN, CANDY CUTTER HAND - 02/21/2023 8:36 PM CDT Rx approved and sent to pharmacy via e-prescribe. * Telephone Encounter - Thania Huizar RN - 02/21/2023 9:05 AM CDT Medication failed the protocol, provider to review and approve the medication order if appropriate. Requested Prescriptions Pending Prescriptions Disp Refills pioglitazone (ACTOS) 30 MG Tablet [Pharmacy Med Name: Pioglitazone HCl 30 MG Oral Tablet] 90 Tablet1 Sig: Take 1 Tablet by mouth daily. Insulin Sensitizing Agents Protocol Passed - 02/19/2023 9:49 AM Passed - Lipid panel in past 12 months LDL Date Value Ref Range Status 01/19/2023 92 <130 mg/dL Final HDL CHOLESTEROL Date Value Ref Range Status 01/19/2023 58 >40 mg/dL Final CHOLESTEROL Date Value Ref Range Status 01/19/2023 164 <200 mg/dL Final TRIGLYCERIDES Date Value Ref Range Status 01/19/2023 69 <150 mg/dL Final VLDL Date Value Ref Range Status 01/19/2023 14 10 - 50 mg/dL Final CHOL/HDL RATIO Date Value Ref Range Status 01/19/2023 2.8 0.0 - 4.4 Final NON-HDL CHOLESTEROL Date Value Ref Range Status 01/19/2023 106 <130 mg/dL Final Passed - AST or ALT result on file in past 12 months SGOT (AST) Date Value Ref Range Status 01/19/2023 14 5 - 34 U/L Final SGPT (ALT) Date Value Ref Range Status 01/19/2023 9 0 - 55 U/L Final Passed - Visit with relevant provider in past 6 months or upcoming 90 days Recent Visits Date Type Provider Dept 01/19/23 Office Visit Raiza Diana APRN, AMY [facility] Showing recent visits within past 182 days and meeting all other requirements Future Appointments Date Type Provider Dept 03/15/23 Appointment Raiza Diana APRN, AMY [facility] Showing future appointments within next 90 days and meeting all other requirements Passed - HgA1C on record in past 6 months HGB-A1C Date Value Ref Range Status 01/19/2023 7.8 (H) 4.0 - 6.0 % Final Passed - GFR on record in past 6 months GFR, EST. NONAFRICAN Date Value Ref Range Status 01/19/2023 >60 >=60 Final tamsulosin (FLOMAX) 0.4 MG Capsule [Pharmacy Med Name: Tamsulosin HCl 0.4 MG Oral Capsule] 90 Capsule 1 Sig: Take 1 Capsule by mouth daily. Benign Prostatic Hyperplasia Medications Protocol Passed - 02/19/2023 9:49 AM Passed - Visit with relevant provider in past 12 months or upcoming 90 days Recent Visits Date Type Provider Dept 01/19/23 Office Visit Raiza Diana APRN, AMY [facility] 07/19/22 Office Visit Mita Otero APRN, AMY [facility] 06/22/22 Office Visit Mita Otero APRN, CNP [facility] 04/12/22 Office Visit Bryan Hodgson MD [facility] Showing recent visits within past 365 days and meeting all other requirements Future Appointments Date Type Provider Dept 03/15/23 Appointment Raiza Diana APRN, AMY [facility] Showing future appointments within next 90 days and meeting all other requirements traZODone (DESYREL) 50 MG Tablet [Pharmacy Med Name: traZODone HCl 50 MG Oral Tablet] 90 Tablet 1 Sig: Take 1 tablet by mouth nightly Serotonin Modulators (6 Month Refill Only) Protocol Failed - 02/19/2023 9:49 AM Failed - Has an encounter in the past 6 months with a depression or anxiety visit diagnosis Passed - Visit with relevant provider in past 6 months or upcoming 90 days Recent Visits Date Type Provider Dept 01/19/23 Office Visit Raiza Diana APRN, AMY [facility] Showing recent visits within past 182 days and meeting all other requirements Future Appointments Date Type Provider Dept 03/15/23 Appointment Raiza Diana APRN, AMY [facility] Showing future appointments within next 90 days and meeting all other requirements Passed - No PRN Use for Trazodone Passed - Patient has established therapy with Serotonin Modulators for at least 6 months Refused Prescriptions Disp Refills pramipexole (MIRAPEX) 0.125 MG Tablet [Pharmacy Med Name: Pramipexole Dihydrochloride 0.125 MG OralTablet] 90 Tablet 1 Sig: Take one tablet by mouth nightly 2-3 hours before bedtime Antiparkinson Dopaminergics and COMT Protocol Passed - 02/19/2023 9:49 AM Passed - Visit with relevant provider in the past 9 months or upcoming 90 days Recent Visits Date Type Provider Dept 01/19/23 Office Visit Raiza Diana APRN, AMY [facility] 07/19/22 Office Visit Mita Otero APRN, CNP [facility] 06/22/22 Office Visit Mita Otero APRN, AMY [facility] Showing recent visits within past 270 days and meeting all other requirements Future Appointments Date Type Provider Dept 03/15/23 Appointment Raiza Diana APRN, AMY [facility] Showing future appointments within next 90 days and meeting all other requirements Passed - Blood pressure on record in past 12 months Clinician-entered: BP Readings from Last 3 Encounters: 01/19/23 122/74 07/19/22 122/72 06/22/22 130/80 Patient-entered: No data recorded * Telephone Encounter - Thania Huizar RN - 02/21/2023 9:03 AM CDT mirapex refused as patient is taking a different dose. documented in this encounter Plan of Treatment Not on file documented as of this encounter Visit Diagnoses Diagnosis Benign non-nodular prostatic hyperplasia with lower urinary tract symptoms Reactive depression Dysthymic disorder documented in this encounter Additional Health Concerns Infection Onset Date Last Indicated Resolved Time COVID - 19 06/30/2023 06/30/2023 06/30/2023 2:00 PM SPONGE DIVER Respiratory Rule-Out 06/08/2024 06/08/2024 025 4:15 PM SPONGE DIVER Influenza 06/08/2024 06/08/2024 06/15/2024 12:1 6 AM SPONGE DIVER Assessment Noted Time PHQ-9 Depression Total Score: 0 10/21/19 21 7:00 AM CDT documented as of this encounter Care Teams Special Education Supervisor Relationship Specialty Start Date End Date Bryan Hodgson MD [address] [place] [address] PCP - General 05/11/07 documented as of this encounter
--- OUTSIDE RECORDS SUMMARY | 2024-08-16 15:22 | XMS_ITS | Encounter Summary ---
Author Organization [facility] Address [address] [place] [address] Phone Care Team Providers Care Mower Mechanic Name Role Phone Bryan Hodgson MD Primary Care Provider [phone] Reason for Referral * - Closed Specialty Diagnoses / Procedures Referred By Ana guillory Referred To Contact Diagnoses Pain Procedures XR KNEE RIGHT 3 VIEWS Raiza Diana APRN [address] [place] [address] Phone: tel: fax: [facility] [address] [place] [address] Phone: tel: Referral ID Status Reason Start Date Expiration Date Visits Re quested Visits Authorized [id number] Closed 10/20/2023 1 1 Encounter Details Date Type Department Care Team ([facility] Contact Info) Description 10/20/2023 Transcribe Orders Non [facility] Referring Docs Raiza Diana APRN [address] [place] [address] Pain (Primary Dx) Social History Tobacco Use Types Packs/Day Years Used Date Smoking Tobacco: Never Assessed Sex and Gender Information Value Date Recorded Sex Assigned at Not on file Legal Sex Male 5:50 PM CDT Gender Identity Not on file Sexual Orientation Not on file documented as of this encounter Plan of Treatment Not on file documented as of this encounter Results * XR KNEE RIGHT 3 VIEWS (10/20/2023 7:29 AM CDT) Anatomical Region Laterality Modality Knee Digital Radiogra phy 10/20/2023 7:10 AM CDT Narrative 10/20/2023 8:13 AM CDT Accession Exam Completed Date/Time [id number] XR KNEE RIGHT 3 VIEWS 10/20/2023 07:29 Requesting: RAIZA DIANA XR KNEE RIGHT 3 [...] tibiofemoral and patellofemoral compartments. There is bilateral [id number] appearance of the medial tibiofemoral compartments. There is osteophytic spurring of the tibial spines. No sizable suprapatellar joint knee joint effusion on either side. Electronically Signed and Authenticated by Linden Lamb MD 10/20/2023 08:13 Procedure Note Linden Lamb MD - 10/20/2023 Accession Exam CompletedDate/Time [id number] XR KNEE RIGHT 3 VIEWS 407:29 Requesting: RAIZA DIANA XR KNEE RIGHT 3 VIEWS, XR KNEE LEFT 3 VIEWS. 10/20/2023 7:10 AM CLINICAL INDICATION: Bilateral knee pain COMPARISON: None. FINDINGS/ IMPRESSION: AP, lateral and sunrise views of both hips were performed. No acute fracture or dislocation. 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 There is ekomlcazhvtpo-gq-ipvi appearance of the medial tibiofemoral compartments. There is osteophytic spurring of the tibialspines. No sizable suprapatellar joint knee joint effusion on eitherside. Electronically Signed and Authenticated by Linden Lamb MD 10/20/2023 08:13 Result [facility] Raiza Diana APRN X-RAY Final R esult documented in this encounter Visit Diagnoses Diagnosis Pain- Primary Generalized pain Pain Generalized pain documented in this encounter Additional Health Concerns Infection Onset Date Last Indicated Resolved Time Suspected COVID-19 04/15/2024 04/15/2024 10:24 AM LOCK OPERATOR documented as of this encounter Care Teams Mower Mechanic Relationship Specialty Start Date End Date Bryan Hodgson MD [address] [place] [address] PCP - General Family Medicine 08/24/22 documented as of this encounter
--- OUTSIDE RECORDS SUMMARY | 2024-08-16 15:22 | XMS_ITS | Encounter Summary ---
Author Organization [facility] Address [address] [place] [address] Phone Care Team Providers Care Waterworks Supervisor Name Role Phone Bryan Hodgson MD Primary Care Provider [phone] Reason for Visit * Reason Onset Date Comments Cough 06/21/2022 Nasal Congestion 06/21/2022 Encounter Details Date Type Department Care Team (Late st Contact Info) Description 06/21/2022 Nurse Triage [facility] [address] [place] [address] Bryan Hodgson MD [address] [place] [address] Cough; Nasal Congestion Social History Tobacco Use Types Packs/Day Years [...] on file Legal Sex Male 2:44 AM R D ENGINEER Gender Identity Not on file Sexual Orientation Not on file COVID-19 Exposure Response Date Recorded In the last 10 days, have yo u been in contact with someone who was confirmed or suspected to have Coronavirus/COVID-19? No / Unsure 06/22/2022 9:20 AM R D ENGINEER documented as of this encounter Miscellaneous Notes * Telephone Encounter - Raiza Diana APRN, CNP - 06/22/2022 10:42 AM CST Noted R D ENGINEER * Telephone Encounter - Abby Huizar RN - 06/21/2022 3:03 PM CST SITUATION: Productive Cough BACKGROUND: Onset 1 week to 10 days ago. ASSESSMENT: Symptoms: States he is coughing up mucous - yellow/white. States wheezing with cough. Chest heaviness. Lightheaded/dizzy Denies: Shortness of breath Chest pain Sore throat Ear pain Pain (0-10): Denies Temp (route, time): Denies fever Treatment with response: Joan-seltzer plus- unsure Pushing fluids - water RECOMMENDATION: Patient triages to be seen in the office within 3 days. Rn scheduled as listed below. All Patient Appointments Provider Department Dept Phone 06/22/2022 9:40 AM Raiza Diana [facility] [phone] Patient verbalized understanding and is agreeable. See care advice and disposition for guideline. First positive answer recorded, all responses to prior questions were negative. If symptoms increase, change or if new symptoms develop, call your PCP or call back. Recommendation based on caller information and is not a diagnosis. Verified and reviewed all triage information with caller. Teach-back method utilized. Reason for Disposition ??? MODERATE longstanding difficulty breathing (e.g., speaks in phrases, SOB even at rest, pulse 100-120) and SAME as normal Protocols used: BREATHING [id number] R D ENGINEER documented in this encounter Plan of Treatment Not on file documented as of this encounter Visit Diagnoses Not on filedocumented in this encounter Additional Health Concerns Infection Onset Date Last Indicated Resolved Time COVID - 19 06/22/2022 06/22/2022 07/02/2022 12:1 6 AM R D ENGINEER COVID - 19 06/30/2023 06/30/2023 06/30/2023 2:00 PM R D ENGINEER Respiratory Rule-Out 06/08/2024 06/08/2024 025 4:15 PM R D ENGINEER Influenza 06/08/2024 06/08/2024 06/15/2024 12:1 6 AM R D ENGINEER Assessment Noted Time PHQ-9 Depression Total Score: 0 10/21/19 21 7:00 AM CDT documented as of this encounter Care Teams Waterworks Supervisor Relationship Specialty Start Date End Date Bryan Hodgson MD [address] [place] [address] PCP - General 05/11/07 documented as of this encounter
--- OUTSIDE RECORDS SUMMARY | 2024-08-16 15:22 | XMS_ITS | Encounter Summary ---
Author Organization [facility] Address [address] [place] [address] Phone Care Team Providers Care Construction Management Assistant Name Role Phone rByan Hodgson MD Primary Care Provider Reason for Visit * Reason Comments Medication Refill Encounter Details Date Type Department Care Team (Late st Contact Info) Description 12/10/2019 Refill [facility] [address] [place] [address] Bryan Hodgson MD [address] [place], [place] [address] Medication Refill Social History Tobacco Use Types [...] on file Legal Sex Male 2:44 AM BAND PRESSER Gender Identity Not on file Sexual Orientation Not on file documented as of this encounter Miscellaneous Notes * Telephone Encounter - Raiza Diana APN, AMY - 12/10/2019 1:59 PM CDT Rx approved and sent to pharmacy via e-prescribe. documented in this encounter Plan of Treatment Not on file documented as of this encounter Visit Diagnoses Diagnosis Type 2 diabetes mellitus without complication, with long-term current use of insulin Benign non-nodular prostatic hyperplasia with lower urinary tract symptoms documented in this encounter Additional Health Concerns Infection Onset Date Last Indicated Resolved Time COVID - 19 03/26/2020 03/26/2020 04/15/2020 12:1 8 AM BAND PRESSER COVID - 19 Confirmed 03/26/2020 03/26/2020 020 12:18 AM BAND PRESSER COVID - 19 04/12/2022 04/12/2022 04/22/2022 12:1 9 AM BAND PRESSER COVID - 19 Confirmed 04/12/2022 04/12/2022 022 12:16 AM BAND PRESSER COVID - 19 06/22/2022 06/22/2022 07/02/2022 12:1 6 AM BAND PRESSER COVID - 19 06/30/2023 06/30/2023 06/30/2023 2:00 PM BAND PRESSER Respiratory Rule-Out 06/08/2024 06/08/2024 025 4:15 PM BAND PRESSER Influenza 06/08/2024 06/08/2024 06/15/2024 12:1 6 AM BAND PRESSER Assessment Noted Time PHQ-9 Depression Total Score: 21 020 2:50 PM BAND PRESSER documented as of this encounter Care Teams Construction Management Assistant Relationship Specialty Start Date End Date Bryan Hodgson MD [address] [place] [address] PCP - General 05/11/07 documented as of this encounter
--- OUTSIDE RECORDS SUMMARY | 2024-08-16 15:22 | XMS_ITS | Encounter Summary ---
Author Organization [facility] Address [address] [place] [address] Phone Care Team Providers Care Shuttle Fixer Name Role Phone Bryan Hodgson MD Primary Care Provider [phone] Reason for Visit * Reason Comments Medication Refill Encounter Details Date Type Department Care Team (Late st Contact Info) Description 07/17/2020 Refill [facility] [address] [place] [address] Raiza Diana, DISTRICT MANAGER PRIMARY CARE SALES, SKIRT MAKER [address] [place], [place] [address] Medication Refill Social History Tobacco Use Types Packs/Day Years Used Date Smoking Tobacco: Former Cigarettes 0.5 3 0 01/30/2008 - 2011 Smokeless Tobacco: Never Alcohol Use Standard Drinks/Week Comments Yes 4.2 (1 standard drink = 0.6 oz p ure alcohol) PHQ-2 Answer Date Recorded PHQ-2 Score 21 05/30/2019 Sex and Gender Information Value Date Recorded Sex Assigned at Not on file Legal Sex Male 2:44 AM UX DESIGN LEAD Gender Identity Not on file Sexual Orientation Not on file documented as of this encounter Plan of Treatment Not on file documented as of this encounter Visit Diagnoses Diagnosis Benign non-nodular prostatic hyperplasia with lower urinary tract symptoms documented in this encounter Additional Health Concerns Infection Onset Date Last Indicated Resolved Time COVID - 19 04/12/2022 04/12/2022 04/22/2022 12:1 9 AM UX DESIGN LEAD COVID - 19 Confirmed 04/12/2022 04/12/2022 022 12:16 AM UX DESIGN LEAD COVID - 19 06/22/2022 06/22/2022 07/02/2022 12:1 6 AM UX DESIGN LEAD COVID - 19 06/30/2023 06/30/2023 06/30/2023 2:00 PM UX DESIGN LEAD Respiratory Rule-Out 06/08/2024 06/08/2024 025 4:15 PM UX DESIGN LEAD Influenza 06/08/2024 06/08/2024 06/15/2024 12:1 6 AM UX DESIGN LEAD Assessment Noted Time PHQ-9 Depression Total Score: 020 2:50 PM UX DESIGN LEAD documented as of this encounter Care Teams Shuttle Fixer Relationship Specialty Start Date End Date Bryan Hodgson MD [address] [place] [address] PCP - General 05/11/07 documented as of this encounter
--- OUTSIDE RECORDS SUMMARY | 2024-08-16 15:22 | XMS_ITS | Encounter Summary ---
Author Organization [facility] Address [address] [place] [address] Phone Care Team Providers Care Shake Feeder Name Role Phone Bryan Hodgson MD Primary Care Provider [phone] Encounter Details Date Type Department Care Team ([facility] st Contact Info) Description 07/06/2024 Telephone RADIOLOGY NAVIGATOR [address] [place], [place] [address] Identified, No Provider Social History Tobacco Use Types Packs/Day Years Used Date Smoking Tobacco: Never Assessed Sex and Gender Information Value Date Recorded Sex Assigned at Not on file Legal Sex Male 5:50 PM CDT Gender Identity Not on file Sexual Orientation Not on file documented as of this encounter Miscellaneous Notes * Telephone Encounter - Gely Ortega RT - 07/06/2024 10:58 AM CST Patient had a CXR ([id number]) performed during a ED visit on 06/13/24, in which the radiologist recommended follow-up: Impression Interval increase in right infrahilar opacity. While this may represent worsening pneumonia, underlying pulmonic mass is not excluded. For further characterization, CT of the chest is suggested. Imaging has been ordered. PT was previously schedule for CT Chest on 06/18 and then again on 06/22/24but cancelled and has not rescheduled. PT portal is not active. Radiology will mail a letter to thepatient including imaging report. Thank you, Radiology Results Navigator NEER ASSISTANT documented in this encounter Plan of Treatment Not on file documented as of this encounter Visit Diagnoses Not on filedocumented in this encounter Care Teams Shake Feeder Relationship Specialty Start Date End Date Bryan Hodgson MD [address] [place] [address] PCP - General Family Medicine 08/24/22 documented as of this encounter
--- OUTSIDE RECORDS SUMMARY | 2024-08-16 15:22 | XMS_ITS | Encounter Summary ---
Author Organization [facility] Address [address] [place] [address] Phone Care Team Providers Care Clinical Nurse Name Role Phone Bryan Hodgson MD Primary Care Provider [phone] Encounter Details Date Type Department Care Team (Late st Contact Info) Description 07/19/2024 Results Follow-Up [facility] - Primary Care - [place] [address] [place] [address] Raiza Diana APRN, QUALITY LAB TECHNICIAN [address] [place], [place] [id number] Social History Tobacco Use Types Packs/Day Years Used Date Smoking Tobacco: Every Day Cigarettes 0.5 5.3 Started: 01/30/2008; Last attempted to quit: 2011 Passive Smoke Exposure: Past Smokeless Tobacco: Never Comments:Half a pack daily. Alcohol Use Standard Drinks/Week Comments Yes 4.2 (1 standard drink = 0.6 oz p ure alcohol) 3-4 bottles of beer weekly. PHQ-2 Answer Date Recorded Total Score - Questions 1-9 0 08/2024 Sex and Gender Information Value Date Recorded Sex Assigned at Not on file Legal Sex Male 2:44 AM STOCKKEEPER Gender Identity Not on file Sexual Orientation Not on file documented as of this encounter Progress Notes * Raiza Diana APRN, QUALITY LAB TECHNICIAN - 07/19/2024 3:52 PM CDT Patient notified, she phone note documented in this encounter Plan of Treatment Not on file documented as of this encounter Visit Diagnoses Not on filedocumented in this encounter Additional Health Concerns Assessment Noted Time PHQ-9 Depression Total Score: 0 06/12/19 25 8:58 AM STOCKKEEPER documented as of this encounter Care Teams Clinical Nurse Relationship Specialty Start Date End Date Bryan Hodgson MD [address] [place] [address] PCP - General 05/11/07 documented as of this encounter
--- OUTSIDE RECORDS SUMMARY | 2024-08-16 15:22 | XMS_ITS | Encounter Summary ---
Author Organization [facility] Address [address] [place] [address] Phone Care Team Providers Care Assistant Name Role Phone Bryan Hodgson MD Primary Care Provider [phone] Reason for Visit * Reason Comments Medication Refill Encounter Details Date Type Department Care Team (Late st Contact Info) Description 10/25/2023 Refill [facility] - Primary Care - [place] [address] [place] [phone] Raiza Diana, ACCOUNT SERVICE REPRESENTATIVE, WORKFORCE SERVICES REPRESENTATIVE [address] [place], [place] [address] Medication Refill Social History Tobacco Use Types Packs/Day Years Used Date Smoking Tobacco: Some Days Cigarettes 0.5 3 Started: 01/30/2008; Last attempted to quit: 2011 Passive Smoke Exposure: Past Smokeless Tobacco: Never Comments:Smokes 4-5 cigs a d ay. Alcohol Use Standard Drinks/Week Comments Yes 4.2 (1 standard drink = 0.6 oz p ure alcohol) PHQ-2 Answer Date Recorded Total Score - Questions 1-9 0 06/10 Sex and Gender Information Value Date Recorded Sex Assigned at Not on file Legal Sex Male 2:44 AM DELICATESSEN MANAGER Gender Identity Not on file Sexual Orientation Not on file documented as of this encounter Miscellaneous Notes * Telephone Encounter - Emmy Singh RN - 10/26/2023 7:21 AM CDT Lab Results Component Value Date HGBA1C 8.1 (H) 10/19/2023 Medication(s) refilled and signed per [facility] Chronic Medication Refill Standing Order for Pediatric and Adult Patients. documented in this encounter Plan of Treatment Not on file documented as of this encounter Visit Diagnoses Diagnosis Benign non-nodular prostatic hyperplasia with lower urinary tract symptoms documented in this encounter Additional Health Concerns Infection Onset Date Last Indicated Resolved Time Respiratory Rule-Out 06/08/2024 06/08/2024 025 4:15 PM DELICATESSEN MANAGER Influenza 06/08/2024 06/08/2024 06/15/2024 12:1 6 AM DELICATESSEN MANAGER Assessment Noted Time PHQ-9 Depression Total Score: 0 06/30/19 24 1:19 PM DELICATESSEN MANAGER documented as of this encounter Care Teams Assistant Relationship Specialty Start Date End Date Bryan Hodgson MD [facility] [place] [address] PCP - General 05/11/07 documented as of this encounter
--- OUTSIDE RECORDS SUMMARY | 2024-08-16 15:22 | XMS_ITS | Referral Summary ---
Author Organization [facility] Address [address] [place] [address] Care Team Providers Care Traffic Analysis Technician Name Role Phone No, Physician Primary Care Provider [phone] Encounters Date Type Department Care Team Description 08/13/2024 3:08 PM CDT - 08/13/2024 11:59 PM CDT Hospital Encounter [facility] Radiology [address] [place] [address] Arrived Discharge Disposition: Discharge to home or self care 08/13/2024 12:44 PM CDT - 08/13/2024 11:59 PM CDT Hospital Encounter [facility] Interventional Pulmonology [address] [place] [address] Discharge Disposition: Discharge to home or self care 08/10/2024 Documentation [facility] Interventional Pulmonology [address] [place] [address] Evelyn Hale RN 08/07/2024 2:20 PM CDT - 08/07/2024 11:59 PM CDT Hospital Encounter [facility] Radiology [facility] [address] [place] [address] Discharge Disposition: Discharge to home or self care 08/07/2024 2:18 PM CDT - 08/07/2024 11:59 PM CDT Hospital Encounter [facility] Radiology [facility] [address] [place] [address] Discharge Disposition: Discharge to home or self care 08/07/2024 Orders Only [facility] Pulmonary [address] [facility] 8th [place] [address] Ruby Arce, EDSON Lung mass (Primary Dx) 08/07/2024 7:40 AM CDT - 08/07/2024 11:59 PM CDT Hospital Encounter [facility] Radiology [facility] [address] [place] [address] Lung disorder Discharge Disposition: Discharge to home or self care 08/07/2024 7:57 AM CDT - 08/07/2024 11:59 PM CDT Hospital Encounter [facility] Pulmonary [address] [facility] [address] [place] [address] Lung disorder Discharge Disposition: Discharge to home or self care 08/07/2024 9:00 AM CDT Office Visit [facility] Pulmonary [address] [facility] [address]th [place] [address] [place] [address] Donis Dodge Chi, MD Lung disorder 08/03/2024 Orders Only [facility] Pulmonary [address] [facility] 8th [place] [address] [place] [address] Donis Dodge Chi, MD Lung disorder (Primary Dx) from Last 3 Months Allergies No known active allergies Medications brimonidine [...] Date Lung disorder 08/07/2024 Lung mass 08/07/2024 Social History Tobacco Use Types Packs/Day Years [...] on file Sexual Orientation Not on file Last Filed Vital Signs Vital Sign Reading [...] 08/13/2024 1:05 PM CDT Plan of Treatment Not on file Procedures Procedure Name Priority Date/Time Associated Diagnosis [...] viewed via link to PDF [facility] Anika Peaccok Laboratory of Surgical Pathology [facility], [place] [address] Note to Patients: This report may contain [...] REPORT FINAL Patient Name: DONNELL WAYNE Gender: Terrance : 1940 (Age: 84) Address: [address] [place], [place] [address] Hospital #: [id number] Taken:08/13/2024 Received:08/13/2024 Reported: 08/14/2024 Patient Type: [facility] Ancillary Service: Pulmonary Location: Physician(s): Grazyna Higgins M.D. Diagnosis: A. Lung, right, biopsy: - Squamous cell carcinoma ctb/08/14/2024 13:23 By this signature, I attest that [...] A1. Jar 0. sxst/08/13/2024 19:22 PA(s): Lucinda Cool By this signature, I attest that the above diagnosis is based upon my personal examination of the slides(and/or other material). Addenda/Procedures The performance characteristics of some immunohistochemical stains, fluorescence in-situ hybridization tests and immunophenotyping by flow cytometry cited in this report (if any) were determined by the Surgical Pathology and Flow Cytometry Departments at [facility] as part of an ongoing quality assurance supervisor chassis program and in compliance with federally mandated [...] Surgical Pathology and Flow Cytometry Departments of [facility]. It has not been cleared or approved by the U. S. Food and Drug Administration. IMAGES AND SCANNED DOCUMENTS, IF INCLUDED, ONLY VIEWABLE IN PDF VERSION OF REPORT us Luis Gomez MD LAB PATHOLOGY ORDERABLES Final Result PATHOLOGY [facility] 3rd Floor [place], [place] [phone] * Cytology (08/13/2024 2:40 PM CDT) Fluid (Lung (Cytology)) 08/13/2024 2:40 PM CDT 08/13/2024 3:[address] [facility] - 08/14/2024 4:17 PM CDT EPIC results best viewed via link to PDF [facility] Anika Peacock [facility] [place] [address] Note to Patients: This report may contain [...] Gender: M : 1940 (Age: 84) Address: [address] [place] [address] Hospital #: [id number] Taken:08/13/2024 Received:08/13/2024 Reported: 08/14/2024 Patient Type: [facility] Ancillary Service: UNKNOWN Location: Physician(s): Luis Gomez [...] By Stephen Sykes DO 08/14/2024 16:17:45 ACOSTA Silvestre([facility]) Gross Description A. Lung, right, mass, endobronchial [...] Surgical Pathology and Flow Cytometry Departments at [facility] as part of an ongoing quality assurance supervisor chassis program and in compliance with federally mandated [...] Surgical Pathology and Flow Cytometry Departments of [facility]. It has not been cleared or approved by the U. S. Food and Drug Administration. Luis Gomez MD LAB CYTOLOGY ORDERABLES F inal Result PATHOLOGY [facility] 3rd Floor [place], [place] [phone] * Bronchoscopy - (08/13/2024 1:55 PM CDT) Anatomical Region Laterality Modality Other Narrative Procedure Note Luis Gomez MD - 08/13/2024 1:55 PM CDT [facility] Interventional Pulmonary Patient Name: Donnell Wayne Procedure [...] 0 Note Initiated On: 08/13/2024 1:17 PM us Luis Gomez MD BRONCH ORDERABLES Final R esult * (ABNORMAL) POCT glucose (08/13/2024 1:07 PM CDT) Glucose, POC 250(H) 70 - 199 mg/dL Blood 08/13/2024 1:07 PM CDT 08/13/2024 1:07 PM CDT Luis Gomze MD LAB POCT ORDERABLES - DEV ICE Final Result Performing Organization Address [facility] de Phone Number [facility] Lucio [facility] [place] [address] * CT Body Outside Reference (08/07/2024 2:20 PM CDT) Impressions [facility] - 08/07/2024 2:20 PM CDT These images are for Reference purposes only and have not been reviewed by [facility] Radiology. There will be no report generated by a [facility] Radiologist. Narrative [facility] - 08/07/2024 2:20 PM CDT EXAMINATION: Images For Reference Purposes Only us Donis Dodge MD IMG CT PROCEDURES Final Re sult Performing Organization Address [facility] de Phone Number [facility] * XR Outside Reference (08/07/2024 2:18 PM CDT) Impressions [facility] - 08/07/2024 2:18 PM CDT These images are for Reference purposes only and have not been reviewed by [facility] Radiology. There will be no report generated by a [facility] Radiologist. Narrative [facility] - 08/07/2024 2:18 PM CDT EXAMINATION: Images For Reference Purposes Only us Donis Dodge MD IMG XR PROCEDURES Final Re sult Performing Organization Address [facility] Co de Phone Number [email or web address] * Pulmonary Function Test - (08/07/2024 [...] % [facility] FEV1/FVC POST 63.0 % [facility] FRC PL PRE 4.86 L [facility] FRC PL %PRE PRED 143 % [facility] RV PRE 4.04 L [facility] RV %PRE PRED 159 % [facility] TLC PRE 5.58 L [facility] TLC %PRE PRED 89 % [facility] Anatomical Region Laterality Modality PFT 08/07/2024 8:13 AM CDT Narrative 08/07/2024 4:02 PM CDT Table formatting from the original result was not included. [facility] Division of Pulmonary & Critical Care Medicine [address] [place] [address]; [address] [facility]; [place] [address]; [phone] Pulmonary Function Laboratory Pulmonary Stress Test Simple/Oxygen [...] Work [distance (m) x body wt (kg)]: 64505 kg.m (normal >60,000kg.m) Oxygen required to maintain [...] with the written final report. PFT performed at:->[facility] Adult PFT Lab- [facility] Procedure:->Spirometry Procedure:->Spirometry [...] and %HbO2 is age dependent. However, the [facility] Pulmonary Function Laboratory defines hypoxemia as a PaO2 <56 mm Hg or a %HbO2 <89%. Starting on May of 2024 the [facility] Pulmonary Function Laboratory utilizes race neutral GLI [...] pneumothorax. Electronically signed by: Stephen Munoz M.D. Donis Dodge MD IMG XR PROCEDURES Final Re sult from Last 3 Months Insurance MEDICARE [facility] Address: [facility] [address] [place] [address] [facility] MEDICARE SUPPLEMENT MEDICARE [facility] Address: [address] [address] [place] [address] [facility] MEDICARE SUPPLEMENT Advance Directives For more information, please contact: [phone] Documents on File Type Date Recorded Patient Machines Technician Expl anation Advance Directives and Livin g Will 08/07/2024 9:12 AM Care Teams Traffic Analysis Technician Relationship Specialty Start Date End Date No, Physician PCP - General 08/06/24
--- OUTSIDE RECORDS SUMMARY | 2024-08-16 15:22 | XMS_ITS | Encounter Summary ---
Author Organization [facility] Address [address] [place] [address] Phone Care Team Providers Care Studio Control Operator Name Role Phone Bryan Hodgson MD Primary Care Provider [phone] Reason for Visit * Reason Comments Medication Refill Encounter Details Date Type Department Care Team (Late st Contact Info) Description 12/12/2020 Refill [facility] [address] [place] [address] Raiza Diana APRN, JAWBONE PULLER [address], [place] [id number] Medication Refill Social History Tobacco Use Types [...] on file Legal Sex Male 2:44 AM WAREHOUSE DISTRIBUTION ASSOCIATE Gender Identity Not on file Sexual Orientation Not on file documented as of this encounter Miscellaneous Notes * Telephone Encounter - Raiza Diana APN, AMY - 12/12/2020 4:05 PM CDT Rx approved and sent to pharmacy via e-prescribe. * Telephone Encounter - Ning Salas RN - 12/12/2020 9:14 AM CDT Last filled on 04/14/2020 Last office visit on 10/20/20 documented in this encounter Plan of Treatment Not on file documented as of this encounter Visit Diagnoses Diagnosis Reactive depression Dysthymic disorder documented in this encounter Additional Health Concerns Infection Onset Date Last Indicated Resolved Time COVID - 19 04/12/2022 04/12/2022 04/22/2022 12:1 9 AM WAREHOUSE DISTRIBUTION ASSOCIATE COVID - 19 Confirmed 04/12/2022 04/12/2022 022 12:16 AM WAREHOUSE DISTRIBUTION ASSOCIATE COVID - 19 06/22/2022 06/22/2022 07/02/2022 12:1 6 AM WAREHOUSE DISTRIBUTION ASSOCIATE COVID - 19 06/30/2023 06/30/2023 06/30/2023 2:00 PM WAREHOUSE DISTRIBUTION ASSOCIATE Respiratory Rule-Out 06/08/2024 06/08/2024 025 4:15 PM WAREHOUSE DISTRIBUTION ASSOCIATE Influenza 06/08/2024 06/08/2024 06/15/2024 12:1 6 AM WAREHOUSE DISTRIBUTION ASSOCIATE Assessment Noted Time PHQ-9 Depression Total Score: 0 10/21/19 21 7:00 AM CDT documented as of this encounter Care Teams Studio Control Operator Relationship Specialty Start Date End Date Bryan Hodgson MD [facility] [address] PCP - General 05/11/07 documented as of this encounter
--- OUTSIDE RECORDS SUMMARY | 2024-08-16 15:22 | XMS_ITS | Encounter Summary ---
Author Organization [facility] Address [address] [place] [address] Phone Care Team Providers Care Miniature Model Maker Name Role Phone Bryan Hodgson MD Primary Care Provider [phone] Reason for Visit * Reason Comments Medication Refill Encounter Details Date Type Department Care Team (Late st Contact Info) Description 12/16/2021 Refill [facility] [address] [place] [address] Bryan Hodgson MD [address], [place] [id number] Medication Refill Social History Tobacco Use Types [...] on file Legal Sex Male 2:44 AM PAYABLE REPRESENTATIVE Gender Identity Not on file Sexual Orientation Not on file documented as of this encounter Plan of Treatment Not on file documented as of this encounter Visit Diagnoses Not on filedocumented in this encounter Additional Health Concerns Infection Onset Date Last Indicated Resolved Time COVID - 19 04/12/2022 04/12/2022 04/22/2022 12:1 9 AM PAYABLE REPRESENTATIVE COVID - 19 Confirmed 04/12/2022 04/12/202225/2 022 12:16 AM PAYABLE REPRESENTATIVE COVID - 19 06/22/2022 06/22/2022 07/02/2022 12:1 6 AM PAYABLE REPRESENTATIVE COVID - 19 06/30/2023 06/30/2023 06/30/2023 2:00 PM PAYABLE REPRESENTATIVE Respiratory Rule-Out 06/08/2024 06/08/2024 025 4:15 PM PAYABLE REPRESENTATIVE Influenza 06/08/2024 06/08/2024 06/15/2024 12:1 6 AM PAYABLE REPRESENTATIVE Assessment Noted Time PHQ-9 Depression Total Score: 0 10/21/19 21 7:00 AM CDT documented as of this encounter Care Teams Miniature Model Maker Relationship Specialty Start Date End Date Bryan Hodgson MD [address] [place] [address] PCP - General 05/11/07 documented as of this encounter
--- OUTSIDE RECORDS SUMMARY | 2024-08-16 15:22 | XMS_ITS | Encounter Summary ---
Author Organization [facility] Address [address] [place] [address] Phone Care Team Providers Care Wool Grower Name Role Phone Bryan Hodgson MD Primary Care Provider [phone] Reason for Visit * Reason Comments Medication Refill Encounter Details Date Type Department Care Team ([facility] st Contact Info) Description 03/22/2022 Refill [facility] [address] [place] [address] Bryan Hodgson MD [address], [place] [id number] Medication Refill Social History Tobacco Use Types [...] on file Legal Sex Male 2:44 AM JUDO INSTRUCTOR Gender Identity Not on file Sexual Orientation Not on file documented as of this encounter Plan of Treatment Not on file documented as of this encounter Visit Diagnoses Not on filedocumented in this encounter Additional Health Concerns Infection Onset Date Last Indicated Resolved Time COVID - 19 04/12/2022 04/12/2022 04/22/2022 12:1 9 AM JUDO INSTRUCTOR COVID - 19 Confirmed 04/12/2022 04/12/202225/2 022 12:16 AM JUDO INSTRUCTOR COVID - 19 06/22/2022 06/22/2022 07/02/2022 12:1 6 AM JUDO INSTRUCTOR COVID - 19 06/30/2023 06/30/2023 06/30/2023 2:00 PM JUDO INSTRUCTOR Respiratory Rule-Out 06/08/2024 06/08/2024 025 4:15 PM JUDO INSTRUCTOR Influenza 06/08/2024 06/08/2024 06/15/2024 12:1 6 AM JUDO INSTRUCTOR Assessment Noted Time PHQ-9 Depression Total Score: 0 10/21/19 21 7:00 AM CDT documented as of this encounter Care Teams Wool Grower Relationship Specialty Start Date End Date Bryan Hodgson MD [address] [place] [address] PCP - General 05/11/07 documented as of this encounter
--- OUTSIDE RECORDS SUMMARY | 2024-08-16 15:22 | XMS_ITS | Encounter Summary ---
Author Organization [facility] Address [address] 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 Gender Identity Not on file Sexual Orientation [...] 19 04/12/2022 04/12/2022 04/22/2022 12:1 9 AM BENCH WORKER HOLLOW HANDLE COVID - 19 Confirmed 04/12/2022 04/12/2022 022 12:16 AM BENCH WORKER HOLLOW HANDLE COVID - 19 06/22/2022 06/22/2022 07/02/2022 12:1 6 AM BENCH WORKER HOLLOW HANDLE COVID - 19 06/30/2023 06/30/2023 06/30/2023 2:00 PM BENCH WORKER HOLLOW HANDLE Respiratory Rule-Out 06/08/2024 06/08/2024 025 4:15 PM BENCH WORKER HOLLOW HANDLE Influenza 06/08/2024 06/08/2024 06/15/2024 12:1 6 AM BENCH WORKER HOLLOW HANDLE Assessment Noted Time PHQ-9 Depression Total Score: 0 10/21/19 21 7:00 AM CDT documented as of this encounter Care Teams Marine Painter Relationship Specialty Start Date End Date Bryan Hodgson MD [address] [place] [address] PCP - General 05/11/07 documented as of this encounter
--- OUTSIDE RECORDS SUMMARY | 2024-08-16 15:22 | XMS_ITS | Continuity of Care Document ---
Author Organization [facility], L Address [address] [place] [address] Phone Care Team Providers Care Work Checker Name Role Phone Sultana OD, Lucinda Unavailable Unavailable Allergies, Adverse Reactions, Alerts Substance Reaction Status Criticality No Known Drug Allergies Active No I nformation Medications Medication Instructions Dosage Effective Dates (start - stop) Status Comments Xalatan 0.005 % eye drops INSTILL 1 DROP INTO EACH EYE AT BEDTIME - Active 90 day supply - generic okay dorzolamide 22.3 mg-timolol 6.8 mg/mL eye drops instill 1 gtt BID OU, disp 3, 10 ml bottles - Active 90 day supply/change in Sig from last RX pt uses tid. brimonidine 0.2 % eye drops one drop TID ou. please disp 3, 10 ml bottles - Active 90 day supply/ Please call patient when ready. TAMSULOSIN HCL (unknown strength) take 1 capsule by oral route 2 times every day 1/2 hour following the same meal each day Not Available - Active LANTUS SOLOSTAR (unknown strength) inject by subcutaneous route as per insulin protocol Not Available - Active METFORMIN HCL (unknown strength) take 1 tablet by oral route 2 times every day with morning and evening meals Not Available - Active Procedures Procedure Date REFRACTION EYE EXAM ESTABLISHED PATIENT CORNEAL PACHYMETRY FUNDUS PHOTOGRAPHY EYE EXAM ESTABLISHED PAT Visual Field Examination EYE EXAM ESTABLISHED PAT REFRACTION Scan Image/ OCT, Glaucoma EYE EXAM ESTABLISHED PATIENT GONIOSCOPY FUNDUS PHOTOGRAPHY EYE EXAM ESTABLISHED PAT Visual Field Examination EYE EXAM ESTABLISHED PAT Scan Image/ OCT, Glaucoma REFRACTION EYE EXAM ESTABLISHED PATIENT FUNDUS PHOTOGRAPHY EYE EXAM ESTABLISHED PAT PARRY VISUAL FIELD EYE EXAM ESTABLISHED PAT REFRACTION Scan Image/ OCT, Glaucoma EYE EXAM ESTABLISHED PAT EYE EXAM ESTABLISHED PAT EYE EXAM ESTABLISHED PAT REFRACTION Scan Image/ OCT, Glaucoma EYE EXAM ESTABLISHED PATIENT EYE EXAM ESTABLISHED PAT PARRY VISUAL FIELD EYE EXAM ESTABLISHED PAT FUNDUS PHOTOGRAPHY EYE EXAM ESTABLISHED PATIENT Scan Image/ OCT, Glaucoma EYE EXAM ESTABLISHED PAT EYE EXAM ESTABLISHED [facility] PARRY VISUAL FIELD EYE EXAM ESTABLISHED PATIENT, MEDICAL No FUNDUS PHOTOGRAPHY EYE EXAM ESTABLISHED [facility], MEDICAL PARRY VISUAL FIELD EYE EXAM ESTABLISHED [facility], [facility] Scan Image/ OCT, Glaucoma EYE EXAM ESTABLISHED PATIENT, MEDICAL No FUNDUS PHOTOGRAPHY EYE EXAM ESTABLISHED [facility], MEDICAL PARRY VISUAL FIELD EYE EXAM ESTABLISHED [facility], MEDICAL REFRACTION OPTIONAL UPDATE OFFICE/OUTPATIENT VISIT, EST Scan Image/ OCT, Glaucoma EYE EXAM ESTABLISHED [facility], MEDICAL PARRY VISUAL FIELD EYE EXAM ESTABLISHED PATIENT, MEDICAL Fe FUNDUS PHOTOGRAPHY EYE EXAM ESTABLISHED PATIENT, MEDICAL Oc Scan Image/ OCT, Glaucoma EYE EXAM ESTABLISHED PATIENT, MEDICAL Ju PARRY VISUAL FIELD EYE EXAM ESTABLISHED PAT, MEDICAL EYE EXAM ESTABLISHED PAT, MEDICAL GONIOSCOPY Scan Image/ OCT, Glaucoma EYE EXAM ESTABLISHED PATIENT, MEDICAL Ju APRRY VISUAL FIELD FUNDUS PHOTOGRAPHY EYE EXAM, NEW PATIENT MEDICAL 3 Advance Directives Directive Yes / No Effective Date File Name No Information Encounters Encounter Description Practice Location Reason(s) For Visit Diagnoses Date Provider Providers Copied on Encounter [facility], [address] [place] [address], [id number] , [place] tel:[phone] [facility] diabetic eye exam (chief complaint) Primary open-angle glaucoma, bilateral, severe stageType 2 diabetes mellitus without complicationsLo ng term (current) use of insulinPresence of intraocular lensMyopia, bilateralRegula r astigmatism, bilateralPresby opia 5 Sultana Jane. [address] [place] [address], [id number], [place]. tel:[phone] Referring Provider: Lucinda Oh, [address] [place] [address], [id number]. tel:[phone] [facility], [address] [place] [address], [id number] , [place] tel:[phone] [facility] No Information 5 Yancy Loyola. [address] [place] [address], [id number], [place]. tel:[phone] [facility], [address] [place] [address], [id number] , [place] tel:[phone] [facility] f/u POAG OU (chief complaint) Primary open-angle glaucoma, bilateral, severe stage 4 Sultana Jane. [address] [place] [address], [id number], . tel:[phone] Referring Provider: Lucinda Oh, [address] [place] [address], [id number]. tel:[phone] [facility], [address] [place] [address], [id number] , tel:[phone] [facility] No Information Aug-0 4 [facility]. [address] [place] [address], [id number], [place]. tel:[phone] [facility], [address] [place] [address], [id number] , tel:[phone] [facility] f/u POAG OU (chief complaint) Primary open-angle glaucoma, bilateral, moderate stage Aug-0 4 [facility]. [address] [place] [address], [id number], [place]. tel:[phone] Referring Provider: Lucinda Oh, [address] [place] [address], [id number]. tel:[phone] [facility], [address] [place] [address], [id number] , tel:[phone] [facility] diabetic eye exam (chief complaint) Primary open-angle glaucoma, bilateral, moderate stageType 2 diabetes mellitus without complicationsLo ng term (current) use of insulinPresence of intraocular lensMyopia, bilateralRegula r astigmatism, bilateralPresby opia 3 Yancy Loyola. [address] [place] [address], [id number], [place]. tel:[phone] Referring Provider: Nir Benavides, [address] [place] [address], [id number]. tel:[phone] [facility], [address] [place] [address], [id number] , [place] tel:[phone] [facility] glaucoma, followup (chief complaint) Primary open-angle glaucoma, bilateral, moderate stage Aug- 3 [place] Nir. [address] [place] [address], [id number], [place]. tel:[phone] Referring Provider: Nir Benavides, [address] [place] [address], [id number]. tel:[phone] [facility], [address] [place] [address], [id number] , [place] tel:[phone] [facility] f/u POAG OU (chief complaint) Primary open-angle glaucoma, bilateral, moderate stage 2 [place] Nir. [address] [place] [address], [id number], [place]. tel:[phone] Referring Provider: Nir Benavides, [address] [place] [address], [id number]. tel:[phone] [facility], [address] [place] [address], [id number] , [place] tel:[phone] [facility] diabetic eye exam (chief complaint) Primary open-angle glaucoma, bilateral, moderate stageType 2 diabetes mellitus without complicationsLo ng term (current) use of insulinPresence of intraocular lensPresbyopiaM yopia, bilateralRegula r astigmatism, bilateral 2 [place] Nir. [address] [place] [address], [id number], [place]. tel:[phone] Referring Provider: Nir Benavides, [address] [place] [address], [id number]. tel:[phone] [facility], [address] [place] [address], [id number] , [place] tel:[phone] [facility] no problems with vision and no complaints (chief complaint)no problems with vision and no complaints (chief complaint) Primary open-angle glaucoma, bilateral, moderate stage Feb-0 - 2 Yancy Loyola. [address] [place] [address], [id number], [place]. tel:[phone] Referring Provider: Nir Benavides, [address] [place] [address], [id number]. tel:[phone] [facility], [address] [place] [address], [id number] , [place] tel:[phone] [facility] no problems with vision and no complaints (chief complaint)no problems with vision and no complaints (chief complaint) Primary open-angle glaucoma, bilateral, moderate stage Sep-0 1 Yancy Loyola. [address] [place] [address], [id number], [place]. tel:[phone] [facility], [address] [place] [address], [id number] , [place] tel:[phone] [facility] Diabetes Examination (chief complaint)no problems with vision and no complaints (chief complaint)Di abetes Examination (chief complaint)no problems with vision and no complaints (chief complaint) Primary open-angle glaucoma, bilateral, moderate stageType 2 diabetes mellitus without complicationsLo ng term (current) use of insulinPresbyop iaMyopia, bilateralRegula r astigmatism, bilateral Mar-0 1 Brittany Bazan. [address] [place] [address], [id number], [place]. tel:[phone] [facility], [address] [place] [address], [id number] , [place] tel:[phone] [facility] red ,swollen ,Irritated and crusted shut (chief complaint)re d ,swollen ,Irritated and crusted shut (chief complaint) Acute bilateral conjunctivitisB lepharitis of right eyelidBlepharit is of left eyelid 0 Brittany Bazan. [address] [place] [address], [id number], [place]. tel:[phone] [facility], [address] [place] [address], [id number] , tel:[phone] [facility] decreased vision (chief complaint)de creased vision (chief complaint) Primary open-angle glaucoma, bilateral, moderate stage September- 0 Brittany Bazan. [address] [place] [address], [id number], [place]. tel:[phone] [facility], [address] [place] [address], [id number] , [place] tel:[phone] [facility] Diabetes Examination (chief complaint)no problems with vision and no complaints (chief complaint)Di abetes Examination (chief complaint)no problems with vision and no complaints (chief complaint) Primary open-angle glaucoma, bilateral, moderate stageLong term (current) use of insulinType 2 diabetes mellitus without complicationsMy opia, bilateralRegula r astigmatism, bilateralPresby opia 9 Brittany Bazan. [address] [place] [address], [id number], [place]. tel:[phone] [facility], [address] [place] [address], [id number] , tel:[phone] [facility] no problems with vision and no complaints (chief complaint)no problems with vision and no complaints (chief complaint) Primary open-angle glaucoma, bilateral, moderate stage 9 Brittany Bazan. [address] [place] [address], [id number], [place]. tel:[phone] [place] [address], [address] [place] [address], [id number] , [place] tel:[phone] [facility] no problems with vision and no complaints (chief complaint)no problems with vision and no complaints (chief complaint) Primary open-angle glaucoma, bilateral, moderate stage Aug-0 9 Brittany Bazan. [address] [place] [address], [id number], [place]. tel:[phone] [place] [address], [address] [place] [address], [id number] , tel:[phone] [facility] (chief complaint)no problems with vision and no complaints (chief complaint)Di abetes Examination (chief complaint)no problems with vision and no complaints (chief complaint) Primary open-angle glaucoma, bilateral, moderate stageType 2 diabetes mellitus without complicationsLo ng term (current) use of oral hypoglycemic drugsBenign neoplasm of right choroid 0 8 Brittany Bazan. [address] [place] [address], [id number], [place]. tel:[phone] [facility], [address] [place] [address], [id number] , tel:[phone] [facility] no problems with vision and no complaints (chief complaint)no problems with vision and no complaints (chief complaint) Primary open-angle glaucoma, bilateral, moderate stage 8 Brittany Bazan. [address] [place] [address], [id number], [place]. tel:[phone] [facility], [address] [place] [address], [id number] , tel:[phone] [facility] no problems with vision and no complaints (chief complaint)no problems with vision and no complaints (chief complaint) Primary open-angle glaucoma, bilateral, moderate stage Jul-3 8 Brittany Bazan. [address] [place] [address], [id number], [place]. tel:[phone] [place] [address], [address] [place] [address], [id number] , tel:[phone] [facility] Diabetes Examination (chief complaint)no problems with vision and no complaints (chief complaint)Di abetes Examination (chief complaint)no problems with vision and no complaints (chief complaint) Type 2 diabetes mellitus without complicationsLo ng term (current) use of oral hypoglycemic drugsPrimary open-angle glaucoma, bilateral, moderate stagePresence of intraocular lensPresbyopiaB enign neoplasm of right choroid 7 No Information [facility], [address] [place] [address], [id number] , [place] tel:[phone] [facility] no problems with vision and no complaints (chief complaint)no problems with vision and no complaints (chief complaint) Primary open-angle glaucoma, bilateral, moderate stage 7 No Information [facility], [address] [place] [address], [id number] , [place] tel:[phone] [facility] no problems with vision and no complaints (chief complaint)no problems with vision and no complaints (chief complaint) Primary open-angle glaucoma, bilateral, moderate stage 7 No Information [facility], [address] [place] [address], [id number] , [place] tel:[phone] [facility] no problems with vision and no complaints (chief complaint)no problems with vision and no complaints (chief complaint) Primary open-angle glaucoma, bilateral, moderate stage 6 No Information [facility], [address] [place] [address], [id number] , [place] tel:[phone] [facility] no problems with vision and no complaints (chief complaint)no problems with vision and no complaints (chief complaint) Primary open-angle glaucoma, moderate stage 6 No Information [facility], [address] [place] [address], [id number] , [place] tel:[phone] [facility] no problems with vision and no complaints (chief complaint)no problems with vision and no complaints (chief complaint) Primary open-angle glaucoma, moderate stage 6 No Information OFFICE/OUTPA TIENT VISIT, EST [facility], [address] [place] [address], [id number] , [place] tel:[phone] [facility] Examination (chief complaint)no problems with vision and no complaints (chief complaint)Di abetes Examination (chief complaint)no problems with vision and no complaints (chief complaint) Type 2 diabetes mellitus without complicationsPr imary open-angle glaucoma, moderate stageType 2 diab w severe nonprlf diab rtnop w/o macular edemaBenign neoplasm of right choroid Oct-2 5 No Information [facility], [address] [place] [address], [id number] , tel: [phone] [facility] no problems with vision and no complaints (chief complaint)no problems with vision and no complaints (chief complaint) Primary open angle glaucomaModerat e stage glaucoma 5 No Information [facility], [address] [place] [address], [id number] , [place] tel: [phone] [facility] problems with [facility] and no complaints (chief complaint)no problems with vision and no complaints (chief complaint) Benign neoplasm of choroidOpen-ang le glaucoma, unspecifiedGlau coma stage, unspecified 5 No Information Referring Provider: [address] [place], [address]. tel:[phone] [facility], [address] [place] [address], [id number] , tel: [phone] [facility] no problems with V/A and no complaints OU (chief complaint)no problems with V/A and no complaints (chief complaint) Open-angle glaucoma, unspecifiedMild Stage GlaucomaBenign neoplasm of choroidBenign neoplasm of choroid Oct-2 4 No Information Referring Provider: [address] [place], [address]. tel:[phone] [facility], [address] [place] [address], [id number] , tel:[phone] [facility] Diabetes Examination (chief complaint)no problems with V/A and no complaints (chief complaint) Open-angle glaucoma, unspecifiedMild Stage GlaucomaDiabete s Mellitus Type 2, Uncomplicated 4 Vasile Arnold. [address] [place], [place], [id number], [place]. tel:[phone] Referring Provider: Clayton Hickman, [address] [place], [address]. tel:[phone] [facility], [address] [place] [address], [id number] , tel: [phone] [facility] no problems with V/A and no complaints (chief complaint) Primary angle-closure glaucoma, unspecifiedPrim stan angle-closure glaucoma, unspecifiedMild Stage GlaucomaLens replaced by other means 4 Vasile Arnold. [address] [place], [place], [id number], . tel:[phone] Referring Provider: Clayton Hickman, [address] [place], [address]. tel:[phone] [facility], [address] [place] [address], [id number] , tel:[phone] [facility] no problems with [facility]/A and no complaints (chief complaint) Lens replaced by other meansModerate stage glaucomaOpen-an gle glaucoma, unspecifiedMode rate stage glaucomaLens replaced by other means 3 Vasile Arnold. [address] [place], [place], [id number], . [phone] Referring Provider: [address] [place], [address]. tel:[phone] [facility], [address] [place] [address], [id number] , tel:[phone] [facility] Examination (chief complaint)no problems with V/A and no complaints (chief complaint) Open-angle glaucoma, unspecifiedMild Stage GlaucomaDiabete s Mellitus Type 2, UncomplicatedOp en-angle glaucoma, unspecifiedMild Stage GlaucomaDiabete s Mellitus Type 2, Uncomplicated Mohan- 3 Vasile Arnold. [address] [place], [place], [id number], . tel:[phone] Referring Provider: [address] [place], [address]. tel:[phone] [facility], [facility], [address] [place], [place], [id number] , [place] tel:[phone] [facility] No Information 3 Vasile Arnold. [address] [place], [place], [id number], . tel:[phone] Referring Provider: [address] [place], [address]. tel:[phone] Family History Family Member Type Diagnosis Age At Onset Problem (finding) No Family history of Ca taracts Problem (finding) No Family history of Di abetes mellitus Mother Problem (finding) degenerative disorder o f macula Problem (finding) No Family history of HB P Aunt Problem (finding) glaucoma Payers Payer name Insurance type Covered alliance party ID Authoriza tion(s) Medicare [place] MB [id number] [facility] [id number] Social History Type Description Quantity Date Captured Comments Alcohol Use Details Unknown Caffeine Use Details Unknown Tobacco Use Status Cigarette smoker Smoking Status Current every day smoker Smoking Tobacco Use Details Cigarette: No Details Available Cigarette: No Details Available Sex Male Chief Complaint And Reason For Visit From encounter dated '05/21/2024 16:00'. diabetic eye exam (chief complaint). Description: The 84 year old patient presents for evaluation of diabetic eye exam f/u POAG OU, IOL OU and Refractive Error. Vision is stable and constant D & N c gls OU, no changes that he is noticing. Patient denies pain or discomfort. Pt is using Brimonidine TID OU, Dorzolamide/Timolol BID OU and Xalatan qHS OU. Pt is type 2 diabetic treating with insulin and oral meds. Pt states BS is stable. Please send report to Dr. Hodgson. Reason For Referral Reason For Referral No Information Plan Of Treatment Date Type Action Status Goal Tobacco cessation counseling completed Goal Tobacco cessation counseling completed Goal Tobacco cessation counseling completed Goal Tobacco cessation counseling completed Referral Referred To: Bryan Hodgson MD [address], [place], [id number] [phone] Ordered: Referrals: Family Medicine. Bryan Hodgson MD. Assume care ordered Referral Referred To: Bryan Hodgson MD [address], [place], [id number] [phone] Ordered: Referrals: Family Medicine. Bryan Hodgson MD. Assume care ordered Appointment Donnell Wayne BOOKED Future Order: Radiology Order OC T - Optic Nerve ([id number]), Collected on: Ordered Future Order: Radiology Order OC T - Optic Nerve ([id number]), Collected on: Ordered History Of Present Illness Encounter Date Complaint History Of Prese nt Illness diabetic eye exam The 84 year ol d patient presents for evaluation of diabetic eye exam f/u POAG OU, IOL OU and Refractive Error. Vision is stable and constant D & N c gls OU, no changes that he is noticing. Patient denies pain or discomfort. Pt is using Brimonidine TID OU, Dorzolamide/Timolol BID OU and Xalatan qHS OU. Pt is type 2 diabetic treating with insulin and oral meds. Pt states BS is stable. Please send report to Dr. Hodgson. f/u POAG OU The 83 year old patient presents for evaluation of f/u POAG OU. Vision is stable and constant D & N c gls OU (answer was vague, states no changes). Patient denies: pain or discomfort. Pt is using Brimonidine TID OU, Dorzolamide-Timolol BID OU and Latanoprost qHS OU. f/u POAG OU The 83 year old patient presents for f/u POAG OU. Pt reports his vision is good, stable, and constant D & N in the right eye and left eye last exam. He states he doesn't use his gls all the time but they do sharpen up his dist vision when he wears them. Patient denies: pain or discomfort. Pt states he is using Brimonidine TID OU, Dorzolamide-Timolol BID OU, and Latanoprost QHS OU. diabetic eye exam The 82 year ol d patient presents for diabetic eye exam and f/u POAG OU, IOL OU and Refractive Error OU. Pt states that since the last visit his vision has been good and stable OU d/n sc, pt states that he does sometimes wear gls when watching TV but did not bring them with him today. Patient denies: pain or discomfort. Pt using Brimonidine TID OU, Dorzolamide TID OU and Xalatan qHS OU.Pt is type 2 Diabetic, treating with insulin. BS stable per pt. Please send a letter to Dr. Bryan Hodgson. glaucoma, followup The 82 year o ld patient presents for glaucoma, followup OU. Pt reports no problems with vision and no complaints in the right eye and left eye since last exam. Vision is good and stable and constant D & N with and without gls; pt says that he can't tell the difference between gls on or off. Patient denies: pain or discomfort. Pt is using Brimonidine TID OU, Dorzolamide TID OU (rxed BID OU), and Xalatan QHS OU f/u POAG OU The 82 year old patient presents for evaluation of f/u POAG OU. Pt states vision is good sc D &N OU since last exam. Pt state she does wear gls to drive on occasions OU, did not bring them today. Patient denies: pain or discomfort. Pt states he is using Latanoprost QHS OU, Dorzolamide/Timolol TID OU, and Brimonidine TID OU, pt states at least. diabetic eye exam The 81 year ol d patient presents diabetic eye exam f/u POAG OU, Nevus OD, and Refractive Error OU. Pt states no change in vision in the right eye and left eye since last exam. Pt states vision good and stable and constant D & N sc OU. Patient denies: pain or discomfort. Pt used Latanoprost QHS OU, Brimonidine TID OU, Dorzolamide gtt BID OU.Pt is Type 2 Diabetic and treats with insulin and oral meds. Pt states BS is stable. Please send a letter to Dr. Bryan Hodgson. no problems with vis ion and no complaints The 81 Year old male presents for F/U POAG OU. Patient reports no problems with vision and no complaints in the right eye and left eye since last exam. Vision good, stable and constant D & N sc. The patient denies pain or discomfort and COVID-19 symptoms - temperature normal. Patient using Latanoprost QHS OU, Brimonidine TID OU, and Dorzolamide-Timolol TID OU. no problems with vis ion and no complaints The 80 Year old male presents for follow up of POAG OU. Pt reports of no problems with vision and no complaints in the right eye and left eye, since last exam. Vision good, stable and constant D & N sc. Pt reports that he got bifocal gls. He does not like them. He states that he rarely wears them. The patient denies COVID-19 symptoms - temperature normal. No pain or discomfort. Pt uses Latanoprost QHS OU, Brimonidine TID OU, Dorzolamide/Timolol TID OU. Diabetes Examination The 80 Year old male presents for Diabetes Examination and follow up POAG OU and Refractive Error OU. Pt is type II diabetic, using insulin. Pt states BS is fluctuating. Please send letter to Dr. Hodgson. no problems with vis ion and no complaints Pt reports no problems with vision and no complaints in the right eye and left eye since last exam. Vision good, stable and constant D & N sc. The patient denies pain or discomfort, COVID-19 symptoms - temperature normal. pt is using Latanoprost qHS OU, Brimonidine TID OU, and Dorz/Timolol TID OU. red ,swollen ,Irrita vernon and crusted shut The 80 Year old male presents for red, ,swollen ,Irritated and crusting in the right eye and left eye. It started about 2 day(s) ago. VA not affected. Pt states he has to pry OS open in the morning due to the crusting. The patient denies COVID-19 symptoms - temperature normal. Using Latanoprost Q HS OU, Brimonidine Tid OU, and Dorzolamide/Timolol Bid OU. Type 2 Diab. Pt afraid to check his BS. BS seems High to pt. send letter to Dr. Hodgson decreased vision The 79 Year old male presents for follow up POAG OU. Pt reports decreased vision in the right eye and left eye since last exam. It affects distance vision. Pt states having trouble reading things on the bottom of the TV. The patient denies COVID-19 symptoms - temperature normal and pain or discomfort. Pt states using Xalatan OU q HS, Dorz OU TID, and Brimonidine OU TID.Pt refuses HVF today. Diabetes Examination The 79 Year old male presents for Diabetes Examination, POAG OU & Nevus OD. Pt is a type 2 diabetes treating with insulin. BS is becoming stable. Please send a letter to Dr. Bryan Hodgson MD. no problems with vis ion and no complaints Pt reports no problems with vision and no complaints in the right eye and left eye since last exam. Vision good, stable and constant D & N sc. The patient denies pain or discomfort. Pt uses Brimonidine TID OU, Dorz/Puneet TID OU & Xalatan qhs OU. no problems with vis ion and no complaints The 78 Year old male presents for no problems with vision and no complaints in the right eye and left eye. It affects both near and far vision. The patient denies pain or discomfort. Pt using Brimonidine OU tid, Latanoprost OU qhs and Dorz/Timolol OU tid. (ON OCT OU attempted but unable to get due to pupil size and pt coop) no problems with vis ion and no complaints The 78 Year old male presents for follow up of POAG OU. Pt reports of no problems with vision and no complaints in the right eye and left eye, since last exam. Vision good, stable and constant D & N c gls.. The patient denies pain or discomfort. Pt uses Brimonidine TID OU, Latanoprost QHS OU, and Dorzolamide TID OU. Diabetes Examination The 78 Year old male presents for Diabetes Examination. he is type 2 NIDDM on oral meds. no problems with vis ion and no complaints The patient complains of no problems with vision and no complaints in the right eye and left eye. It affects Vision good, stable and constant D & N c. The symptom is constant. The patient denies pain or discomfort. He has hx of POAG. He uses Latanoprost OU qhs, Brimonidine OU tid, and Dorz/ Timolol OU tid. no problems with vis ion and no complaints The 77 Year old male presents for 4 month F/U POAG OU. Pt reports no problems with vision and no complaints in the right or left eye, near and far vision seem stable. The patient denies pain or discomfort OU. Pt is using Latanoprost QHS OU, Brimonidine TID OU and Dorzolamide/Timolol TID OU. no problems with vis ion and no complaints The 77 Year old male presents for evaluation of no problems with vision and no complaints in the right eye and left eye. Vision good, stable and constant D & N c gls.. It occurs constantly. The patient denies pain or discomfort. He is here for TSlamp and HVF for OAG. He uses Latanoprost OU qhs, Brimonidine OU bid, and Dorz/Timolol OU tid. no problems with vis ion and no complaints The patient complains of no problems with vision and no complaints in the right eye and left eye. Vision good, stable and constant D & N c. It occurs constantly. The patient denies pain or discomfort. He is here for RTD for OAG. He uses Brimonidine OU tid, Dorz/Timolol OU tid, and Latanoprost OU qhs. Diabetes Examination The 77 Year old male presents for evaluation of Diabetes Examination. He is type 2 NIDDM on oral meds. no problems with vis ion and no complaints The 76 Year old male presents for evaluation of POAG OU. Pt reports no problems with vision and no complaints in the right or left eye with near and far vision and seems stable. The patient denies pain or discomfort. Pt is using Dorzolamide/Timolol TID OU, Brimonidine TID OU and Latanoprost QHS OU. no problems with vis ion and no complaints The 76 Year old male presents for evaluation of OAG OU c no problems with vision and no complaints in the right eye and left eye. Vision good, stable and constant D & N sc gls.. Hx of OAG OU, YAG OU, Nevus OD. Type 2 diabeties taking oral meds. The patient denies pain or discomfort. Latanoprost qhs OU, Brimonidine tid OU, Dorzolamide tid OU. no problems with vis ion and no complaints The 76 Year old male presents for evaluation of OAG. Pt reports no problems with vision and no complaints in the right eye and left eye. It affects both near and far vision. The condition is stable. The patient denies pain or discomfort. Pt is using Dorzolamide/Timolol TID OU, Brimonidine TID OU and Latanoprost QHS OU. no problems with vis ion and no complaints The 75 Year old male presents for evaluation of IOP for OAG OU. Pt has no problems with vision and no complaints in the right eye and left eye. It affects both near and far vision. It occurs constantly. The patient denies pain or discomfort. Hx of IOL OU. Pt using Xalatan OU qhs, Alphagan P OU tid and Dorz/Timolol OU tid. no problems with vis ion and no complaints The 75 Year old male presents for evaluation of no problems with vision and no complaints in the right eye and left eye. Vision good, stable and constant D & N c gls.. It occurs constantly. The patient denies pain or discomfort. He is here for TSlamp for OAG. He uses Xalatan OU qhs, Alphagan OU tid, and Dorzolamide/Timolol OU tid. Diabetes Examination The 75 Year old male presents for evaluation of Diabetes Examination- type 2 controlled with oral meds no problems with vis ion and no complaints The patient complains of no problems with vision and no complaints in the right eye and left eye since last visit 4months ago. Pt reports vision good distance & near w/out glasses. The patient denies change in vision, drop problems and is using correctly. On Xalatan OU qhs, Alphagan OU tid and Dorzolamide/Timolol OU tid no problems with vis ion and no complaints The 74 Year old male presents for evaluation of no problems with vision and no complaints in both eyes since last visit 4 months ago. The patient denies change in vision.Pt using Alph P OU tid, Dorz/Timolol OU tid and Xalatan OU qhs no problems with vis ion and no complaints The 74 Year old male presents for evaluation of no problems with vision and no complaints in the right eye and left eye. It affects Vision good, stable and constant D & N.. It occurs constantly. The patient denies pain or discomfort. He uses Alphagan P OU tid, Dorzolamide/Timolol OU tid, and Xalatan OU qhs. 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 Impression/Plan - PO AG OU. IOPs at a good level today. OCT ON today. Everything remaining stable. Continue Latanoprost q HS OU, Brimonidine TID OU, and Dorzolamide/Timolol TID OU. Impression/Plan - Gl aucoma OU, moderate. IOP and HVF look stable OU.Continue Latanoprost OU qhs, Brimonidine OU bid, and Dorz/Timolol OU tid. Back in 4 months for TSlamp and (on) OCT. Follow up - Return i n 4 months with [facility] for T, Slamp , OCT (ON). Follow up - Return i n 4 months with [facility] for Visual Field (24-2) , T, Slamp. Impression/Plan - Th ings look good. No signs of the diabetes OU, will cont to monitor. Implants fine. No ARMD OU. The mole in the back of OD looks stable, will get photos today and watch. IOP ok OU. Glaucoma stable, will cont to monitor. Cont Brimonidine BID OU, Dorzolamide/Timolol TID OU and Latanoprost q hs OU. Pt doing well. Will recheck the glaucoma in 4 mos. 4 months with [facility]NT Related to Joanna marks open-angle glaucoma, bilateral, moderate stage Follow up - 4 months with JNT refr, ten OU. 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 Will cont with Brimonidine gtt 0.15% tid OU, dorzolamide/timolol tid OU and latanoprost qhs OU. IOP is good today and vision is doing well. 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 IOP OU at a good level. Will continue to monitor. If IOP begins to increase will switch drops to name brand. ON OCT OD thin sup, temp, and inf.-similar to older scans, OS thin sup and inf., mild thinning temp. -similiar to previous scans. Continue to use Dorz./Timolol OU tid, Latanoprost OU qhs and Brimonidine OU tid. 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 POAG OU. IOP OU at a good level. Continue to use Xalatan OU qus, Alphagan P OU tid and Dorz/Timolol OU tid. 2. CR nevus OD. Stable c/w 2014 photos. Old photos limited quality. Repeat fundus photos today. 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 IOP slightly increased. HVF today: OD S arcuate defect, I/N defect. Similar to last year. OS I arcuate almost altitudinal defect. Similar to last year. Monitor. Xalatan OU QHS, Xalatan OU QHS, Alphagan OU TID and Dorz Timolol OU TID. Return 4 months RTD ON phtos. Follow up - slamp T HVF Impression/Plan - OA G stable. Significant damage OU. IOP is good. Continue Xalatan OU QHS, Xalatan OU QHS, Alphagan OU TID and Dorz Timolol OU TID.Return 4 months HVF. Impression/Plan - 1. OAG - sigificant damage OU. IOP is good today. ON today shows signicant thinning superior and inferior, mild thinning temporal, overall thicker or stable compared to 2014. Continue Xalatan OU QHS, Alphagan OU TID and Dorz. Timolol OU TID.2. Type 2 DM controlled by oral meds. No TECHNOLOGY TRAINER or macular edema. Important to keep BS controlled. 3. CR nevus OD - stable c/w photos. Follow up - 4 months slamp T Impression/Plan - IO P OU has been increasing slightly over last couple of exams. If start to notice some more defects on the testing or pressures keep increasing will need to refer to hematology specialist. Continue to use Alphagan P OU tid, Dorzolamide/Timolol OU tid and Xalatan OU qday. Follow up - Return i n 4 months with [facility] for Refract T & D. Follow up - Return i n 4 months with JNT for refract, Slamp and T. Impression/Plan - 1. OAG - IOP is stable. Photos rev'd. Continue Alphagan P OU TID, Dorz/Timolol OU TID and Xalatan OU QHS. Back in 4 months for T, slamp and refract.2. 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 Photos rev'd and appears stable. Will monitor. 3. Pseudophakia OU - implants well centered and stable. - Return in 4 months with [facility]NT for T and slamp fundus photos. Related to CR nevus Open-angle glaucoma, unspecified OU. Condition: will continue to monitor. Mild stage glaucoma OU. Condition: will continue to monitor. CR nevus OD. Condition: will continue to monitor. - OAG - ON shows a lot of damage. Increase Dorz/timolol to TID, continue Alphagan P OU TID and Xalatan OU qhs. Patient is interested in medical mariquana to control OAG. We do not handle that here as there is no way to monitor and keep your pressure controlled. Best thing for your OAG is to use drops regularly and keep IOP well controlled.CR nevus OD. Back in 4 months for OAG f/u and digital fundus for nevus. Educational materials provided:none needed. Related to CR nevus - Return in 4 months with [facility] for T and slamp gonio OCT Related to Diabetes mellitus without mention of complication, Open-angle glaucoma, unspecified OU. Condition: established, stable. Mild stage glaucoma OU. Condition: established, stable. Diabetes mellitus without mention of complication, OU. Condition: established, stable. - Implants look good. No DR. OAG stable. Contine Xalatan OU qhs, Dorz/Timolol OU BID and Alphagan OU TID. Educational materials provided:none needed. Related to Diabetes mellitus without mention of complication, Primary angle-closur e glaucoma, unspecified OS. Condition: will continue to monitor. Mild stage glaucoma OD. Condition: will continue to monitor. - IOP at stable level. Continue Xalatan OU qhs, Dorzolamide/timolol OU bid and Alphagan OU tid. Educational materials provided:none needed. Related to Lens replaced by other means - Return in 4 months with [facility] for T & D and Visual Field (24-2). Related to Lens replaced by other means - Return in 4 months with [facility] for T and slamp. Related to Lens replaced by other means Open-angle glaucoma, unspecified OU. Condition: established, stable. Moderate stage glaucoma OU. Condition: established, stable. Lens replaced by other means OU. Condition: established, stable. - IOP and ON OCT stable. Continue Xalatan OU qhs, Dorzolamide/Timolol OU Bid and Alphagan P 0.1% OU tid. Return 4 months IOP checkEducational materials provided:none needed. Related to Lens replaced by other means Mild stage glaucoma OU. Condition: established, stable. - Fundus photos received and reviewed- c/d appears stable. Continue gtts as directed. Related to Mild stage glaucoma Diabetes mellitus wi thout mention of complication, OU. Condition: will continue to monitor. - Add to Plan 10/19/12- No diabetic Retinopathy OU. Related to Diabetes mellitus without mention of complication, - Return in 4 month with [facility] for Gonioscopy and OCT (ON). Related to Diabetes mellitus without mention of complication, Open-angle glaucoma, unspecified OU. Condition: will continue to monitor. Mild stage glaucoma OU. Condition: will continue to monitor. Diabetes mellitus without mention of complication, OU. Condition: will continue to monitor. - Fundus photos reviewed from 2011 and ordered today. OAG and IOP's are stable. Continue Xalatan OU QHS, Dorzolomide-Timolol OU BID and Aphagan P OU TID. Related to Diabetes mellitus without mention of complication, Assessments Type Assessment Date assessment Primary open-angle glaucoma, alfonso ateral, severe stage assessment Type 2 diabetes mellitus without complications assessment detention (current) use of insul in assessment Presence of intraocular lens May assessment Myopia, bilateral assessment Regular astigmatism, bilateral J assessment Presbyopia Patient Care Teams Name Effective Dates (start - stop) Status Members No Information
--- OUTSIDE RECORDS SUMMARY | 2024-08-16 15:22 | XMS_ITS | Encounter Summary ---
Author Organization [facility] Address [address] 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 Gender Identity Not on file Sexual Orientation Not on file documented as of this encounter Plan of Treatment Not on file documented as of this encounter Visit Diagnoses Diagnosis Type 2 diabetes mellitus without complication, without long-term current use of insulin documented in this encounter Additional Health Concerns Infection Onset Date Last Indicated Resolved Time COVID - 19 04/12/2022 04/12/2022 04/22/2022 12:1 9 AM ELECTRONIC CALIBRATION TECHNICIAN COVID - 19 Confirmed 04/12/2022 04/12/2022 022 12:16 AM ELECTRONIC CALIBRATION TECHNICIAN COVID - 19 06/22/2022 06/22/2022 07/02/2022 12:1 6 AM ELECTRONIC CALIBRATION TECHNICIAN COVID - 19 06/30/2023 06/30/2023 06/30/2023 2:00 PM ELECTRONIC CALIBRATION TECHNICIAN Respiratory Rule-Out 06/08/2024 06/08/2024 025 4:15 PM ELECTRONIC CALIBRATION TECHNICIAN Influenza 06/08/2024 06/08/2024 06/15/2024 12:1 6 AM ELECTRONIC CALIBRATION TECHNICIAN Assessment Noted Time PHQ-9 Depression Total Score: 0 10/21/19 21 7:00 AM CDT documented as of this encounter Care Teams Broodmare Foreman Relationship Specialty Start Date End Date Bryan Hodgson MD [address] [place] [address] PCP - General 05/11/07 documented as of this encounter
--- OUTSIDE RECORDS SUMMARY | 2024-08-16 15:22 | XMS_ITS | Clinical Summary ---
Author Organization [facility] Address [address] [place] [address] Phone Care Team Providers Care Legal File Clerk Name Role Phone Bryan Hodgson MD Primary Care Provider [phone] Allergies Active Allergy Reactions Criticality Noted Date Comments No Known Drug Allergy Unknown 10/11/2012 No Known Environmental Allergies Unknown 09/2012 No Known Food Allergy Unknown 10/11/2012 No Known Latex Allergy Unknown 10/11/2012 Medications COSOPT 2-0.5 % OP SOLN Place 1 Drop in both eyes 3 times daily. Both eyes (dorzolamide timolol) Active FreeStyle Lancets XX MISC 1 Device by Does not apply route daily. 100 Each 3 12/30/19 10 Active latanoprost 0.005 % OP SOLN Place 1 Drop in both eyes nightly. Active Glucose Blood Strip 1 Strip by In Vitro route. Use as directed Active Blood Glucose Monitoring Suppl (FREESTYLE LITE) DeviceIndication s:Uncontrolled type 2 diabetes mellitus without complication, without long-term current use of insulin Tests once daily. Diagnosis E11.65 DM Type 2 1 Each 08/03/19 18 Active TRUEPLUS PEN NEEDLES 31G X 6 MM Misc 0 05/12/19 19 Active brimonidine (ALPHAGAN) 0.15 % Solution INSTILL 1 DROP INTO EACH EYE THREE TIMES DAILY 05/29/19 20 Active Insulin Pen Needle (TRUEplus Pen [place]) 31G X 8 MM Misc USE NIGHTLY AND DIRECTED 100 Pen Needle 03/22/20 22 Active Acetaminophen (TYLENOL EXTRA STRENGTH PO) Take 2 Tablets by mouth as needed. Active traZODone (DESYREL) 50 MG Tablet Take 1 tablet by mouth nightly 90 Tablet 1 01/31/20 24 Active pramipexole (MIRAPEX) 0.5 MG TabletIndication s:Restless legs Take 1 tablet by mouth nightly 90 Tablet 1 01/31/20 24 Active Additional Information Patient not taking.Reported on 07/12/2024 pioglitazone (ACTOS) 30 MG Tablet Take 1 tablet by mouth once daily 90 Tablet 1 01/31/20 24 Active gabapentin (NEURONTIN) 100 MG CapsuleIndicatio ns:Restless Leg Syndrome Take 1 Capsule by mouth nightly. Indications: Restless Leg Syndrome 30 Capsule 1 02/15/20 24 Active albuterol 108 (90 Base) MCG/ACT Aerosol SolutionIndicati ons:COPD exacerbation (HCC) take 1-2 Puffs by inhalation every 4 hours as needed for Wheezing (chest tightness, shortness of breath). 8 g 04/24/20 24 Active Additional Information Patient not taking.Reported on 07/12/2024 tamsulosin (FLOMAX) 0.4 MG CapsuleIndicatio ns:Benign non-nodular prostatic hyperplasia with lower urinary tract symptoms Take 1 capsule by mouth once daily 90 Capsule 05/10/19 25 Active Lantus SoloStar 100 UNIT/ML Solution Pen-injectorIndi cations:Type 2 diabetes mellitus without complication, with long-term current use of insulin INJECT 25 UNITS SUBCUTANEOUSLY NIGHTLY 15 mL 2 05/14/19 25 Active Additional Information Patient taking differently: Restarted per SHAJI Eastman at 15 units on 07/13/24, Reported on 07/13/2024 metFORMIN (GLUCOPHAGE) 1000 MG Tablet TAKE 1 TABLET BY MOUTH TWICE DAILY WITH MEALS 180 Tablet 1 05/16/19 25 Active budesonide-formo terol fumarate (SYMBICORT) 80-4.5 MCG/ACT AerosolIndicatio ns:Chronic obstructive pulmonary disease, unspecified COPD type (HCC) take 2 Puffs by inhalation 2 times daily. 10.2 g 3 07/11/19 25 Active Glucose Blood (FREESTYLE LITE) StripIndications :Type 2 diabetes mellitus with insulin therapy (HCC) USE 1 STRIP TO CHECK GLUCOSE ONCE DAILY 100 Each 1 08/07/19 25 Active Glucose Blood (FREESTYLE LITE) StripIndications :Type 2 diabetes mellitus with insulin therapy (HCC) USE 1 STRIP TO CHECK GLUCOSE ONCE DAILY 100 Each 1 05/22/19 25 025 Discontin ued(Reord er) Glucose Blood (FREESTYLE LITE) StripIndications :Type 2 diabetes mellitus with insulin therapy (HCC) USE 1 STRIP TO CHECK GLUCOSE ONCE DAILY 100 Each 1 08/04/19 25 025 Discontin ued(Reord er) Active Problems Problem Noted Date Diagnosed Date Restless legs 01/19/2023 Type 2 diabetes mellitus with insulin therapy Hyperplastic polyp of intestine 09/10/2015 Erectile dysfunction 08/20/2015 Nocturia 07/10/2014 BPH (benign prostatic hyperplasia) 07/10/2014 Overview (10/24/2014): 6--15 PVP (139,500j) Type 2 diabetes mellitus wit hout complication, with long-term current use of insulin 04/16/2013 Overview (04/14/2020): Eye exam 04/04/2020 [facility] Foot exam 04/14/2020 Hyperlipemia 09/11/2008 Resolved Problems Problem Noted Date Diagnosed Date Resolved Date Tobacco abuse 09/11/2008 03/29/2012 Encounters Date Type Department Care Team Description 08/06/2024 Refill [place] [address] [place] [phone] Bryan Hodgson MD Medication Refill 08/03/2024 Refill [facility] [address] [place] [phone] Bryan Hodgson MD Medication Refill (Glucose Blood (FREESTYLE LITE) Strip) 07/19/2024 Results Follow-Up [facility] [address] [place] [phone] Raiza Diana HISTOPATHOLOGY TECHNICIAN, AUTOMATIC SPINNING LATHE [employer]TER 07/17/2024 Telephone [facility] [address] [place] [phone] Bryan Hodgson MD Request for Records 07/17/2024 Telephone [facility] [address] [phone] Diego Bales MD Referral; Procedure 07/16/2024 4:44 PM CDT - 07/16/2024 11:59 PM CDT Hospital Encounter [facility] [address] [place] [address] Provider, Not On File Discharge Disposition: Discharged to home or Selfcare 07/16/2024 4:44 PM CDT - 07/16/2024 11:59 PM CDT Hospital Encounter [facility] [address] [place] [phone] Provider, Not On File Discharge Disposition: Discharged to home or Selfcare 07/16/2024 Telephone [facility] [address] [place] [address] Bryan Hodgson MD Follow-up 07/16/2024 Telephone [facility] [address] [place] [phone] Bryan Hodgson MD Advice Only 07/13/2024 Results Follow-Up [facility] [address] [place] [address] Raiza Diana APRN, AUTOMATIC SPINNING LATHE [employer]TER Hyponatremia; Type 2 diabetes mellitus without complication, with long-term current use of insulin (HCC); Mixed hyperlipidemia 07/12/2024 1:00 PM [employer] Office Visit [facility] [address] [place] [address] Raiaz Diana APRN, AUTOMATIC SPINNING LATHE SETTER Type 2 diabetes mellitus without complication, with long-term current use of insulin (HCC) (Primary Dx); Chronic obstructive pulmonary disease, unspecified COPD type (HCC); Abnormal x-ray; Mixed hyperlipidemia; Memory changes; Claustrophobia Discharge Disposition: Discharged to home or Selfcare 07/12/[address] [phone] Bryan Hodgson MD Need Order 07/12/2024 Travel 07/11/2024 Telephone [facility] [address] [place] [phone] Bryan Hodgson MD Follow-up 07/10/2024 Telephone [facility] [address] [place] [phone] Bryan Hodgson MD Advice Only; Cough 06/28/2024 9:40 AM [employer] Office Visit [place] [phone] Raiza Diana APRN, AUTOMATIC SPINNING LATHE SETTER Mild cognitive impairment (Primary Dx); Claustrophobia Discharge Disposition: Discharged to home or Selfcare 06/27/2024 Nurse Triage [address] [phone] Bryan Hodgson MD Pneumonia 06/26/2024 10:00 AM [employer] Office Visit [place] [phone] Raiza Diana APRN, AUTOMATIC SPINNING LATHE SETTER Subacute cough (Primary Dx); Penile rash Discharge Disposition: Discharged to home or Selfcare 06/26/2024 Travel 06/25/2024 Nurse Triage [address] [phone] Bryan Hodgson MD Cough 06/21/2024 11:20 AM [employer] Office Visit [address] [phone] Hemp, Carri Benavides APRN, AUTOMATIC SPINNING LATHE [employer]TER Community acquired bacterial pneumonia (Primary Dx) Discharge Disposition: Discharged to home or Selfcare 06/21/2024 Travel 06/21/2024 [facility] [address] [place] [phone] Bryan Hodgson MD Advice Only; Cough 06/18/[address] [phone] Bryan Hodgson MD Follow-up 06/15/[address] [phone] Raiza Diana APRN, AMY Follow-up (Chest xray follow up ) 06/12/2024 9:00 AM [employer] Office Visit [address] [phone] Bryan Hodgson MD Influenza A (Primary Dx) Discharge Disposition: Discharged to home or Selfcare 06/12/2024 Travel 06/11/2024 Nurse Triage [facility] [address] [place] [phone] Bryan Hodgson MD Influenza; Shortness of Breath 06/08/2024 4:00 PM [employer] Office Visit [address] [phone] Raiza Diana APRN, AUTOMATIC SPINNING LATHE [employer]TER Acute cough (Primary Dx); Influenza A Discharge Disposition: Discharged to home or Selfcare 06/08/2024 Travel 06/08/2024 [facility] [address] [place] [phone] Bryan Hodgson MD Cough 06/07/2024 Nurse Triage [facility] [address] [place] [phone] Bryan Hodgson MD Cough 05/31/2024 Patient Out[facility] [address] [place] [phone] [facility] Care Management 05/22/2024 Refill [facility] [address] [phone] Raiza Diana, HISTOPATHOLOGY TECHNICIAN, AUTOMATIC SPINNING LATHE SETTER Medication Refill from Last 3 Months Immunizations Immunization Administration Dates Next Due Covid-19, Mrna, Lnp-s, PF, 1 00 mcg/0.5 mL Dose (Moderna) 08/28/2020,07/31/2020 Influenza, Trivalent, Adjuvanted, PF 01/16/2024 Pneumococcal conjugate PCV20 , polysaccharide ASP606 conjugate, adjuvant, PF 01/16/2024 Family History Medical History Relation Name Comments Diabetes Maternal Grandmother Relation Name Status Comments Father Maternal Grandmother Mother Alive Sister Alive Social History Tobacco Use Types Packs/Day Years Used Date Smoking Tobacco: Every Day Cigarettes 0.5 5.3 Started: 01/30/2008; Last attempted to quit: 2011 Passive Smoke Exposure: Past Smokeless Tobacco: Never Tobacco Cessation:Ready to Q uit: Not Asked; Counseling Given: No Comments:Half a pack daily. Alcohol Use Standard Drinks/Week Comments Yes 4.2 (1 standard drink = 0.6 oz p ure alcohol) 3-4 bottles of beer weekly. PHQ-2 Answer Date Recorded Total Score - Questions 1-9 0 08/2024 Sex and Gender Information Value Date Recorded Sex Assigned at Not on file Legal Sex Male 2:44 AM [employer] Gender Identity Not on file Sexual Orientation Not on file Last Filed Vital Signs Vital Sign Reading Time Taken Comments Blood Pressure 138/76 07/12/2024 1:01 PM [employer] Pulse 95 07/12/2024 1:01 PM [employer] Temperature 36.9 C (98.5 F) 07/12/2024 1:01 PM [employer] Respiratory Rate 18 07/12/2024 1:01 PM [employer] Oxygen Saturation 94% 07/12/2024 1:01 PM [employer] Inhaled Oxygen Concentration - - Weight 60.5 kg (133 lb 6.4 oz) 07/12/2024 1:01 P M [employer] Height 175.3 cm (5' 9 ) 07/12/2024 1:01 PM [employer] Body Mass Index 19.7 07/12/2024 1:01 PM [employer] Plan of Treatment Health Maintenance Due Date Last Done Comments Hepatitis C Virus (HCV) Screening 1940 TdaP Immunization 1940 Zoster Immunization (1 of 2) 01/28/1990 Respiratory Syncytial Virus (RSV) Immunization (Adult) (1 - 1-dose 75+ series) 01/28/2015 Diabetes: Foot Exam 04/24/2020 04/24/2019, 04/24/2019, 08/28/2014 SARS-COV-2 Immunization ( season) 2024 08/28/2020, 07/31/2020 Diabetes: Hemoglobin A1c 01/12/2025 025, 01/13/2024, 10/19/2023, Additional history exists Diabetes: Eye Exam 05/21/2025 05/21/2024, 0 12/28/2022, 12/28/2022, Additional history exists Diabetes: Nephropathy Screening 07/12/2025 07/12/2024, 07/12/2024, 01/13/2024, Additional history exists Influenza Immunization Completed 01/16/2024 Pneumococcal Immunization (50+ years) Completed 01/16/2024 Pneumococcal Immunization Combined Discontinued 01/16/2024 Hepatitis B Immunization Aged Out No longer eligible based on patient's age to complete this topic Meningococcal Immunization (ACWY) Aged Out No longer eligible based on patient's age to complete this topic Rotavirus Immunization Aged Out No lo nger eligible based on patient's age to complete this topic Procedures Procedure Name Priority Date/Time Associated Diagnosis Comments CT REFERENCE IMAGES FOR IMAGE IMPORT Routine 07/16/2024 4:[address] REFERENCE IMAGES FOR IMAGE IMPORT Routine 07/16/2024 4:[address] CHEST W CONTRAST Routine 07/16/2024 1 2:00 AM CDT Chronic obstructive pulmonary disease, unspecified COPD type (HCC) Abnormal x-ray UR MICROALBUMIN/CREATI NINE RATIO RANDOM Routine 07/12/2024 3:34 PM [employer] Type 2 diabetes mellitus without complication, with long-term current use of insulin (HCC) POCT GLUCOSE Routine 07/12/2024 1:51 PM [employer] Type 2 diabetes mellitus without complication, with long-term current use of insulin (HCC) THYROID STIMULATING HORMONE (TSH) Today 07/12/2024 1:38 PM [employer] Memory changes VITAMIN B12 Routine 07/12/2024 1:38 PM [employer] Memory changes HEMOGLOBIN A1C W/ ESTIMATED GLUCOSE Routine 07/12/2024 1:38 PM [employer] Type 2 diabetes mellitus without complication, with long-term current use of insulin (HCC) LIPID PANEL Routine 07/12/2024 1:38 PM [employer] Mixed hyperlipidemia CMP (COMPREHENSIVE METABOLIC PANEL) Routine 07/12/2024 1:38 PM [employer] Mixed hyperlipidemia BASIC METABOLIC PANEL W/ CALCIUM TOTAL 06/18/2024 12:00 AM [employer] POC INFLUENZA A AND B BY MOLECULAR Routine 06/08/2024 4:05 PM [employer] Acute cough HM DILATED EYE EXAM 05/21/2024 1 2:00 AM [employer] from Last 3 Months Results * CT REFERENCE IMAGES FOR IMAGE IMPORT (07/16/2024 4:44 PM CDT) Only the most recent of2 resultswithin the time period is included. us Not On File Provider IMG CT ORDERABLES Final Res ult * CT CHEST W CONTRAST (07/16/2024 12:00 AM CDT) Anatomical Region Laterality Modality Chest N/A Other 07/16/2024 us Raiza Diana HISTOPATHOLOGY TECHNICIAN, AUTOMATIC SPINNING LATHE SETTER IMG CT ORDERABLES Final Result * (ABNORMAL) UR MICROALBUMIN/CREATININE RATIO RANDOM (07/12/2024 3:34 PM [employer]) RAN UR MICROALBUMIN 4.80 mg/dL 07/13/2024 6:13 PM [employer] [facility] Comment:No reference range h as been established. Consider Clinical Correlation. CREATININE URINE 23.6 mg/dL 07/14/19 25 6:13 PM [employer] [facility] Comment:No reference range h as been established. Consider Clinical Correlation. ALB/CREAT RATIO 203(H) 0 - 30 mg/g CRE 07/13/2024 6:13 PM [employer] [facility] Urine Non-Phlebotomy Collection / Unknown 07/12/2024 3:34 PM [employer] 07/12/2024 3:34 PM [employer] Raiza Diana APRN, CNP URINE ORDERABLES F inal Result [facility] [address] [place] [address], [place] * (ABNORMAL) POCT GLUCOSE (07/12/2024 1:51 PM [employer]) GLUCOSE 552(A) 70 - 99 mg/dL 07/12/2024 1:51 PM [employer] Raiza Diana APRN, CNP POINT OF CARE TEST ING (MANUAL) Final Result * (ABNORMAL) HEMOGLOBIN A1C W/ ESTIMATED GLUCOSE (07/12/2024 1:38 PM [employer]) HGB-A1C 11.9(H) 4.0 - 6.0 % 07/12/2024 6:10 PM [employer] [facility] Est Average Glucose 294.8 mg/dL 07/12/2024 6:10 PM [employer] [facility] Blood Venipuncture / Unknown 07/12/2024 1:38 PM [employer] 07/12/2024 1:38 PM [employer] Narrative [facility] - 07/12/2024 6:10 PM [employer] Specimens containing greater than 5% of Hemoglobin F may result in lower than expected % HbA1c results. Raiza Diana APRN, CNP CHEMISTRY ORDERABL ES Final Result Performing Organization Address City/[facility]/ZIP Co de Phone Number [facility] [address] [place] [address], [place] * VITAMIN B12 (07/12/2024 1:38 PM [employer]) VITAMIN B12 414 213 - 816 pg/mL 07/12/2024 5:58 PM [employer] [facility] Blood Venipuncture / Unknown 07/12/2024 1:38 PM [employer] 07/12/2024 1:38 PM [employer] us Raiza Diana APRN, CNP CHEMISTRY ORDERABL ES Final Result Performing Organization Address City/[facility]/ZIP Co de Phone Number [facility] [address] [place] [address], [place] * THYROID STIMULATING HORMONE (TSH) (07/12/2024 1:38 PM [employer]) TSH 0.431 0.300 - 5.000 mIU/L 07/12/2024 5:38 PM [employer] [facility] Blood Venipuncture / Unknown 07/12/2024 1:38 PM [employer] 07/12/2024 1:38 PM [employer] us Raiza Diana APRN, CNP CHEMISTRY ORDERABL ES Final Result Performing Organization Address City/[facility] Co de Phone Number [facility] [address] [place] [address], [place] * (ABNORMAL) LIPID PANEL (07/12/2024 1:38 PM [employer]) CHOLESTEROL 206(H) <200 mg/dL 07/12/2024 5:27 PM [employer] [facility] TRIGLYCERIDES 206(H) <150 mg/dL 07/12/2024 5:27 PM [employer] [facility] HDL CHOLESTEROL 55 >40 mg/dL 5:27 PM [employer] [facility] LDL 110 <130 mg/dL 07/12/2024 5:27 PM [employer] [facility] VLDL 41 10 - 50 mg/dL 07/12/2024 5:27 PM [employer] [facility] CHOL/HDL RATIO 3.7 0.0 - 4.4 07/12/2024 5:27 PM [employer] [facility] NON-HDL CHOLESTEROL 151(H) <130 mg/dL 07/12/2024 5:27 PM [facility] IS THE PATIENT REQUIRED TO BE FASTING? Yes 07/12/2024 5:27 PM [facility] HAS THE PATIENT BEEN FASTING? Yes 07/12/2024 5:27 PM [facility] Blood Venipuncture / Unknown 07/12/2024 1:38 PM [employer] 07/12/2024 1:38 PM [employer] Narrative [facility] - 07/12/2024 5:27 PM [employer] NCEP GUIDELINES FOR LIPID INTERPRETATION TOTAL CHOLESTEROL DESIRABLE <200 BORDERLINE 200-239 HIGH >=240 LDL CHOLESTEROL OPTIMAL <100 NEAR OPTIMAL 100-129 BORDERLINE 130-159 HIGH 160-189 VERY HIGH >=190 HDL CHOLESTEROL LOW <40 *HIGH >=60 TRIGLYCERIDES NORMAL <150 BORDERLINE 150-199 HIGH 200-499 VERY HIGH >=500 *HDL CHOLESTEROL >=60 mg/dL counts as a negative risk factor; its presence removes one risk factor from the total. Based on guidelines from the National Cholesterol Education Program, desirable levels for non HDL cholesterol are 30 mg/dL above target levels for LDL cholesterol. us Raiza Diana APRN, CNP CHEMISTRY ORDERABL ES Final Result [facility] [address] [place] [address], * (ABNORMAL) CMP (COMPREHENSIVE METABOLIC PANEL) (07/12/2024 1:38 PM [employer]) SODIUM 132(L) 136 - 145 mmol/L 07/12/2024 5:36 PM [employer] [facility] POTASSIUM 4.1 3.5 - 5.1 mmol/L 07/12/2024 5:36 PM [facility] CHLORIDE 97(L) 98 - 107 mmol/L 07/12/2024 5:36 PM [facility] CO2, VENOUS 24 22 - 30 mmol/L 07/12/2024 5:36 PM [facility] ANION GAP 11.0 <18.0 mmol/L 07/12/2024 5:36 PM [facility] GLUCOSE 501(HH) 70 - 99 mg/dL 07/12/2024 5:36 PM [facility] BUN 20 8 - 26 mg/dL 07/12/2024 5:36 PM [facility] CREATININE, BLOOD 1.04 0.70 - 1.30 mg/dL 07/12/2024 5:36 PM [facility] BUN/CREATININE RATIO 19 12 - 20 ratio 07/12/2024 5:36 PM [facility] TOTAL PROTEIN 7.8 6.0 - 8.0 g/dL 07/12/2024 5:36 PM [facility] ALBUMIN 3.7 3.5 - 5.0 g/dL 07/12/2024 5:36 PM [facility] A/G RATIO 0.9(L) 1.0 - 2.2 07/12/2024 5:36 PM [facility] CALCIUM 9.2 8.7 - 10.5 mg/dL 07/12/2024 5:36 PM [facility] T BILI 0.3 0.2 - 1.2 mg/dL 07/12/2024 5:36 PM [facility] SGOT (AST) 20 <43 U/L 07/12/2024 5:36 PM [facility] SGPT (ALT) 8 <56 U/L 07/12/2024 5:36 PM [facility] ALKALINE PHOSPHATASE 105 40 - 150 U/L 07/12/2024 5:36 PM [facility] IS THE PATIENT REQUIRED TO BE FASTING? No 07/12/2024 5:36 PM [facility] GFR, ESTIMATED >60 >=60 07/12/2024 5:36 PM [facility] Comment: Creatinine Clearance is the preferred criteria for selecting drug dose adjustments in renally impaired patients. The GFR is provided as additional pertinent clinical information. GFR is reported in mL/min/1.73 sq m. Calculation based on the Chronic Kidney Disease Epidemiology Collaboration (CKD- EPI) equation refit without adjustment for race. GFR, EST. >60 >=60 025 5:36 PM [employer] [facility] GFR, EST. NONAFRICAN >60 >=60 07/12/2024 5:36 PM [employer] [facility] Blood Venipuncture / Unknown 07/12/2024 1:38 PM [employer] 07/12/2024 1:38 PM [employer] Raiza Diana APRN, CNP CHEMISTRY ORDERABL ES Final Result Performing Organization Address City/[facility]/ZIP Co de Phone Number [facility] [address] [place] [address], * BASIC METABOLIC PANEL W/ CALCIUM TOTAL (06/18/2024 12:00 AM [employer]) 06/18/2024 Raiza Diana APRN, CNP CHEMISTRY ORDERABL ES Final Result Performing Organization Address [facility] Co de Phone Number SCAN * (ABNORMAL) POC INFLUENZA A AND B BY MOLECULAR (06/08/2024 4:05 PM [employer]) INFLUENZA A RNA Positive(A) Negative, Invalid INFLUENZA B RNA Negative Negative, Invalid PROCEDURE CONTROL Valid Swab 06/08/2024 4:05 PM [employer] Raiza Diana APRN, CNP POINT OF CARE TEST ING (MANUAL) Final Result * HM DILATED EYE EXAM (05/21/2024 12:00 AM [employer]) 05/21/2024 Provider Scan PROCEDURE/MINOR SURGICAL ORDERAB LES Final Result Performing Organization Address City/[facility] Co de Phone Number SCAN from Last 3 Months Insurance MEDICARE [facility] Care Teams Legal File Clerk Relationship Specialty Start Date End Date Bryan Hodgson MD [address] [place] [address] PCP - General 05/11/07
--- OUTSIDE RECORDS SUMMARY | 2024-08-16 15:22 | XMS_ITS | Clinical Summary ---
[facility] Organization [facility] Address [address] [place] [address] Phone Care Team Providers Care Professor Of Astronomy Name Role Phone Bryan Hodgson MD Primary Care Provider [phone] Allergies No known active allergies Medications dorzolamide-timol oL (COSOPT) 22.3-6.8 mg/mL ophthalmic solution 1 drop 2 (two) times daily 3 Active brimonidine (ALPHAGAN P) 0.15 % ophthalmic solution 1 drop 3 (three) times daily 3 Active LANTUS SOLOSTAR PEN 100 unit/mL (3 mL) pen SMARTSI Unit(s) SUB-Q Every Evening 3 Active Latanoprost (XALATAN) 0.005 % ophthalmic solution 1 drop 3 Active metFORMIN (GLUCOPHAGE) 1,000 mg tablet Take 1,000 mg by mouth 2 (two) times daily 3 Active pioglitazone (ACTOS) 30 mg tablet Take 30 mg by mouth every day 3 Active pramipexole (MIRAPEX) 0.25 mg tablet Take 0.25 mg by mouth 2 Active tamsulosin (FLOMAX) 0.4 mg extended release capsule Take 0.4 mg by mouth every day 3 Active traZODone 50 mg tablet Take 50 mg by mouth 3 Active albuterol HFA 90 mcg/actuation inhalerIndication s:COPD with acute exacerbation ([facility]),Hypoxia Take 2 puffs inhaled by mouth every 4 to 6 hours as needed for wheezing / cough or shortness of breath 18 g Active fluticasone propion-salmetero L (ADVAIR DISKUS) 250-50 mcg/dose diskus inhalerIndication s:Acute cough,Community acquired bacterial pneumonia Take 1 puff inhaled by mouth 2 (two) times daily for 20 days 1 each Active Encounters Date Type Department Care Team Description 07/16/2024 10:06 AM CDT - 07/16/2024 11:59 PM CDT Hospital Encounter [facility] [address] [place] [address] Raiza Diana APRN General medical exam (Primary Dx); Chronic obstructive pulmonary disease, unspecified COPD type; Abnormal x-ray Discharge Disposition: Discharged to Home or Self Care 07/12/2024 Transcribe Orders NON [facility] [address] [place] [address] Raiza Diana APRN Chronic obstructive pulmonary disease, unspecified COPD type (Primary Dx); Abnormal x-ray 07/06/2024 Telephone RADIOLOGY NAVIGATOR [address] [place] [id number] Identified, No Provider 06/20/2024 Transcribe Orders NON [facility] [address] [place] [address] Bryan Hodgson MD Abnormal x-ray (Primary Dx); COPD exacerbation ([facility]) 06/18/2024 2:50 PM FURNITURE PACKER Lab Only [facility] [address] [place] [address] Raiza Diana, DOCUMENT CONTROLLER Type 2 diabetes mellitus without complication, with long-term current use of insulin ([facility]) 06/18/2024 Transcribe Orders [facility] [address] [place] [address] Raiza Diana APRN Type 2 diabetes mellitus without complication, with long-term current use of insulin ([facility]) (Primary Dx) 06/15/2024 Transcribe Orders NON [facility] RE[facility] DOC [address] [place] [address] Raiza Diana APRN Abnormal x-ray (Primary Dx) 06/13/2024 12:55 PM FURNITURE PACKER - 06/13/2024 2:15 PM FURNITURE PACKER Emergency [facility] Emergency Department [address] [place] [id number] Bladimir Mccarthy MD Acute cough (Primary Dx); Community acquired bacterial pneumonia Discharge Disposition: Discharged to Home or Self Care from Last 3 Months Social History Tobacco Use Types Packs/Day Years Used Date Smoking Tobacco: Never Assessed Sex and Gender Information Value Date Recorded Sex Assigned at Not on file Legal Sex Male 5:50 PM CDT Gender Identity Not on file Sexual Orientation Not on file Last Filed Vital Signs Vital Sign Reading Time Taken Comments Blood Pressure 140/63 06/13/2024 11:54 AM FURNITURE PACKER Pulse 74 06/13/2024 11:54 AM FURNITURE PACKER Temperature 36.6 C (97.8 F) 06/13/2024 11:54 AM FURNITURE PACKER Respiratory Rate 30 04/15/2024 11:00 AM FURNITURE PACKER Oxygen Saturation 91% 06/13/2024 11:54 AM FURNITURE PACKER Inhaled Oxygen Concentration - - Weight 72.6 kg (160 lb) 06/13/2024 11:54 AM FURNITURE PACKER Height 162.6 cm (5' 4 ) 06/13/2024 11:54 AM FURNITURE PACKER Body Mass Index 27.46 06/13/2024 11:54 AM FURNITURE PACKER Plan of Treatment Health Maintenance Due Date Last Done Comments Lipid Panel 1940 Depression Screening 1952 DTaP/Tdap/Td Vaccines (1 - Tdap) 01/28/1959 HCPOA Document on File 01/28/1990 Zoster (Shingles) Vaccine (1 of 2) 01/28/1990 Fall Screening 01/28/2005 RSV Vaccine (60+/) (1 - 1-dose 75+ series) 01/28/2015 Eligible for Initial Annual Medicare Wellness Exam 08/25/2023 COVID-19 Vaccine (3 - 2023-2 5 season) 2024 08/28/2020, 07/31/2020 Diabetes: Eye (Ophthalmology ) Exam 06/18/2024 Diabetes: Foot Exam 06/18/2024 Diabetes: Glyco Hemoglobin A1C 06/18/2024 Diabetes: Urine Microalbumin 06/18/2024 Diabetes: Comprehensive Metabolic Panel 04/15/2025 04/15/2024, 08/24/2022 Influenza Vaccine Completed 01/16/2024 Pneumococcal Vaccines (65+) Completed 01/16/2024 HIB Vaccines Aged Out No longer eligi ble based on patient's age to complete this topic HPV Vaccines Aged Out No longer eligi ble based on patient's age to complete this topic Hepatitis A Vaccines Aged Out No long er eligible based on patient's age to complete this topic Hepatitis B Vaccines Aged Out No long er eligible based on patient's age to complete this topic IPV Vaccines Aged Out No longer eligi ble based on patient's age to complete this topic Meningococcal Vaccine (ACWY) Aged Out No longer eligible based on patient's age to complete this topic Rotavirus Vaccines Aged Out No longer eligible based on patient's age to complete this topic Procedures Procedure Name Priority Date/Time Associated Diagnosis Comments CT CHEST WITH CONTRAST Routine 07/16/2024 10:39 AM CDT Chronic obstructive pulmonary disease, unspecified COPD type Abnormal x-ray BASIC METABOLIC PANEL ([facility]) Routine 06/18/2024 2:45 PM FURNITURE PACKER Type 2 diabetes mellitus without complication, with long-term current use of insulin ([facility]) XR CHEST AP OR PA ONLY STAT 06/13/2024 1:51 PM FURNITURE PACKER COMP METABOLIC PANEL ([facility]) Routine 04/15/2024 10:05 AM FURNITURE PACKER from Last 3 Months or Most Recently Relevant to Health Maintenance Results * (ABNORMAL) CT CHEST WITH CONTRAST (07/16/2024 10:39 AM CDT) Anatomical Region Laterality Modality Chest N/A Computed Tomogra phy 07/16/2024 10:3 8 AM CDT Narrative 07/16/2024 10:50 AM CDT Accession Exam Completed Date/Time [id number] CT CHEST WITH CONTRAST 07/16/2024 10:39 Requesting: RAIZA DIANA EXAM: CT CHEST WITH CONTRAST 07/16/2024 10:38 AM CLINICAL INDICATION: Abnormal x-ray, persistent pulmonary consolidation. COMPARISON: Chest x-ray dated 06/13/2024 and April 15, 2024. TECHNIQUE: Contiguous 3 mm enhanced axial images of the chest were obtained. Coronal and sagittal reconstructions were generated. Standard amount of intravenous contrast was administered for this exam. Dose reduction techniques were utilized for this study, automated exposure control, adjustment of of mA and/or kV according to patient's size and/or use of iterative reconstruction technique. FINDINGS: No axillary, mediastinal or left hilar lymphadenopathy is seen by strict size criteria. For example, subcentimeter cardiomegaly or pericardial effusion. The thoracic aorta is unremarkable. There is no pneumothorax. Trace right-sided pleural effusion is seen. There is abnormal circumferential soft tissue within the infrahilar right region and the right middle lobe narrowing of the right middle bronchus suspicious for pulmonic neoplasm measuring up to 3.1 cm in AP and 3.5 cm in transverse dimension there is a cavitary structure within the right middle lobe with air-fluid level likely representing postobstructive cavitary pneumonia versus extension of necrotic neoplasm. Mucosal thickening of a few right upper lobe bronchi are seen suggestive of bronchitis. There is mild emphysematous changes of the lung with upper lobe predominance. Limited evaluation of the visualized upper abdomen demonstrates no significant abnormality. IMPRESSION: 1.Abnormal circumferential soft tissue within the infrahilar right region and the right middle lobe narrowing of the right middle bronchus suspicious for pulmonic neoplasm measuring up to 3.1 cm in AP and 3.5 cm in transverse dimension. There is a cavitary structure within the right middle lobe with air-fluid level likely representing postobstructive cavitary pneumonia versus extension of necrotic neoplasm. Recommendation is for pulmonary consultation and bronchoscopy for further evaluation. 2.Trace right-sided pleural effusion. 3.Mucosal thickening of a few right upper lobe bronchi are seen suggestive of bronchitis. A significant finding has been communicated to the Reading Room Cmm Operator for transmission to the clinical service on 07/16/2024 10:49 AM. Electronically Signed and Authenticated by Linden Lamb MD 07/16/2024 10:50 Procedure Note Linden Lamb MD - 07/16/2024 Accession Exam CompletedDate/Time [id number] CT CHEST WITH CONTRAST 0:39 Requesting: RAIZA DIANA EXAM: CT CHEST WITH CONTRAST 07/16/2024 10:38 AM CLINICAL INDICATION: Abnormal x-ray, persistent pulmonary consolidation. COMPARISON: Chest x-ray dated 06/13/2024 and April 15, 2024. TECHNIQUE: Contiguous 3 mm enhanced axial images of the chest wereobtained. Coronal and sagittal reconstructions were generated. Standardamount of intravenous contrast was administered for this exam. Dosereduction techniques were utilized for this study, automated exposure control, adjustment of of mA and/or kV accordingto patient's size and/or use of iterative reconstruction technique. FINDINGS: No axillary, mediastinal or left hilar lymphadenopathy is seen by strictsize criteria. For example, subcentimeter cardiomegaly or pericardialeffusion. The thoracic aorta is unremarkable. There is no pneumothorax. Trace right-sided pleural effusion is seen.There is abnormal circumferential soft tissue within the infrahilar rightregion and the right middle lobe narrowing of the right middle bronchussuspicious for pulmonic neoplasm measuring up to 3.1 cm in AP and 3.5 cm in transverse dimension there is acavitary structure within the right middle lobe with air-fluid levellikely representing postobstructive cavitary pneumonia versus extension ofnecrotic neoplasm. Mucosal thickening of a few right upper lobe bronchi are seen suggestiveof bronchitis. There is mild emphysematous changes of the lung with upperlobe predominance. Limited evaluation of the visualized upper abdomen demonstrates nosignificant abnormality. IMPRESSION: 1.Abnormal circumferential soft tissue within the infrahilar right regionand the right middle lobe narrowing of the right middle bronchussuspicious for pulmonic neoplasm measuring up to 3.1 cm in AP and 3.5 cmin transverse dimension. There is a cavitary structure within the right middle lobe with air-fluid levellikely representing postobstructive cavitary pneumonia versus extension ofnecrotic neoplasm. Recommendation is for pulmonary consultation andbronchoscopy for further evaluation. 2.Trace right-sided pleural effusion. 3.Mucosal thickening of a few right upper lobe bronchi are seen suggestiveof bronchitis. A significant finding has been communicated to the Reading Room Assistantfor transmission to the clinical service on 07/16/2024 10:49 AM. Electronically Signed and Authenticated by Linden Lamb MD 07/16/2024 10:[address] WITH CONTRAST Final Result * (ABNORMAL) BASIC METABOLIC PANEL ([facility]) (06/18/2024 2:45 PM FURNITURE PACKER) GLUCOSE ([facility]) 333(H) 70 - 99 mg/dL [facility] BUN ([facility]) 16 9 - 20 mg/dL [facility] CREATININE ([facility]) 0.71 0.66 - 1.25 mg/dL [facility] eGFR (2020 CKD-EPI) ([facility]) 90 mL/min/1.7 3m2 [facility] SODIUM ([facility]) 137 136 - 145 mmol/L [facility] POTASSIUM ([facility]) 4.2 3.5 - 5.0 mmol/L [facility] CH[facility]ORIDE [facility] 97(L) 98 - 107 mmol/L [facility] CARBON DIOXIDE ([facility]) 35(H) 22 - 30 mmol/L [facility] CALCIUM ([facility]) 9.4 8.4 - 10.2 mg/dL [facility] 06/18/2024 2:45 PM FURNITURE PACKER 06/18/2024 2:48 PM FURNITURE PACKER Narrative [facility] - 06/18/2024 3:28 PM FURNITURE PACKER Release to patient->Immediate us Raiza Diana APRN [facility] - BLOOD Fin al Result [facility] [address] [place] [id number], * (ABNORMAL) XR CHEST AP OR PA ONLY (06/13/2024 1:51 PM FURNITURE PACKER) Anatomical Region Laterality Modality Chest N/A Digital Radiogra phy 06/13/2024 1:43 PM FURNITURE PACKER Narrative 06/13/2024 1:53 PM FURNITURE PACKER Accession Exam Completed Date/Time [id number] XR CHEST AP OR PA ONLY 06/13/2024 13:51 Requesting: BLADIMIR MCCARTHY XR CHEST AP OR PA ONLY. 06/13/2024 1:43 PM CLINICAL INDICATION: Shortness of breath, worsening cough COMPARISON: April 15, 2024 FINDINGS: The cardiomediastinal silhouette is within normal limits in size and configuration. Persistent right infrahilar opacities again seen with increase in size. While this may represent worsening pneumonia, increase in size is worrisome for underlying pulmonic mass. IMPRESSION: Interval increase in right infrahilar opacity. While this may represent worsening pneumonia, underlying pulmonic mass is not excluded. For further characterization, CT of the chest is suggested. A lung nodule requiring follow-up has been identified. An automated notification was transmitted to the patient's care team on 06/13/2024 1:53 PM. Electronically Signed and Authenticated by Linden Lamb MD 06/13/2024 13:53 Procedure Note Linden Lamb MD - 06/13/2024 Accession Exam CompletedDate/Time [id number] XR CHEST AP OR PA ONLY 513:51 Requesting: BLADIMIR MCCARTHY XR CHEST AP OR PA ONLY. 06/13/2024 1:43 PM CLINICAL INDICATION: Shortness of breath, worsening cough COMPARISON: April 15, 2024 FINDINGS: The cardiomediastinal silhouette is within normal limits in size andconfiguration. Persistent right infrahilar opacities again seen withincrease in size. While this may represent worsening pneumonia, increasein size is worrisome for underlying pulmonic mass. IMPRESSION: Interval increase in right infrahilar opacity. While this may representworsening pneumonia, underlying pulmonic mass is not excluded. For furthercharacterization, CT of the chest is suggested. A lung nodule requiring follow-up has been identified. An automatednotification was transmitted to the patient's care team on 06/13/2024 1:53PM. Electronically Signed and Authenticated by Linden Lamb MD 06/13/2024 13:53 Bladimir Mccarthy MD CHEST X-RAY Final Result * (ABNORMAL) COMP METABOLIC PANEL ([facility]) (04/15/2024 10:05 AM FURNITURE PACKER) GLUCOSE ([facility]) 349(H) 70 - 99 mg/dL [facility] BUN ([facility]) 19 9 - 20 mg/dL [facility] CREATININE ([facility]) 0.70 0.66 - 1.25 mg/dL [facility] eGFR (2020 CKD-EPI) ([facility]) 91 mL/min/1.7 3m2 [facility] SODIUM ([facility]) 137 136 - 145 mmol/L [facility] POTASSIUM ([facility]) 4.4 3.5 - 5.0 mmol/L [facility] CHLORIDE ([facility]) 94(L) 98 - 107 mmol/L [facility] CARBON DIOXIDE ([facility]) 35(H) 22 - 30 mmol/L [facility] AST ([facility]) 24 14 - 59 U/L [facility] ALKALINE PHOSPHATASE ([facility]) 80 38 - 126 U/L [facility] BILIRUBIN TOTAL ([facility]) 0.5 0.2 - 1.3 mg/dL [facility] TOTAL PROTEIN ([facility]) 7.9 6.3 - 8.3 gm/dL [facility] ALBUMIN ([facility]) 4.0 3.5 - 5.0 gm/dL [facility] CALCIUM ([facility]) 9.3 8.4 - 10.2 mg/dL [facility] ALT ([facility]) 19 10 - 70 U/L [facility] 04/15/2024 10:0 5 AM FURNITURE PACKER 04/15/2024 10:09 AM FURNITURE PACKER Narrative [facility] - 04/15/2024 10:41 AM FURNITURE PACKER Release to patient->Immediate Tulio Ho MD [facility] - BLOOD Final Res ult [facility] [address] [place] [address], from Last 3 Months or Most Recently Relevant to Health Maintenance Insurance MEDICARE [employer] [facility] MEDICARE [facility] Commercial (POS, PPO, etc) Address: [address] [place] [address] Care Teams Professor Of Astronomy Relationship Specialty Start Date End Date Bryan Hodgson MD [address] [place] [address] PCP - General Family Medicine 08/24/22
--- OUTSIDE RECORDS SUMMARY | 2024-08-16 15:22 | XMS_ITS | Encounter Summary ---
Author Organization [facility] Address [address] [place] [address] Phone Care Team Providers Care Service Greeter Name Role Phone Bryan Hodgson MD Primary Care Provider [phone] Reason for Visit * Reason Comments Medication Refill Encounter Details Date Type Department Care Team (Late st Contact Info) Description 06/07/2023 Refill [facility] - [place] [address] [place] [phone] Raiza Diana APRN, JAVA WEB APPLICATION DEVELOPER [address], [place] [phone] Medication Refill Social History Tobacco Use Types [...] on file Legal Sex Male 2:44 AM DINING ROOM COORDINATOR Gender Identity Not on file Sexual Orientation Not on file documented as of this encounter Miscellaneous Notes * Telephone Encounter - Raiza Diana APRN, JAVA WEB APPLICATION DEVELOPER - 06/07/2023 12:10 PM CST Rx approved and sent to pharmacy via e-prescribe. NG ROOM COORDINATOR * Telephone Encounter - Lidia Vazquez RN - 06/07/2023 11:51 AM DINING ROOM COORDINATOR Medication failed the protocol, provider to review and approve the medication order if appropriate. Requested Prescriptions Pending Prescriptions Disp Refills Lantus SoloStar 100 UNIT/ML Solution Pen-injector [Pharmacy Med Name: Lantus SoloStar 100 UNIT/ML Subcutaneous Solution Pen-injector] 15 mL 2 Sig: INJECT 20 UNITS SUBCUTANEOUSLY IN THE EVENING Not Delegated - Insulin Protocol Failed - 06/07/2023 9:05 AM Failed - This refill cannot be delegated Passed - Visit with relevant provider in past 12 months or upcoming 90 days Recent Visits Date Type Provider Dept 03/15/23 Office Visit Raiza Diana APRN, [facility] 01/19/23 Office Visit Raiza Diana APRN, [facility] Showing recent visits within past 365 days and meeting all other requirements Future Appointments Date Type Provider Dept 07/15/23 Appointment Clinic, Veronica Doyle, RN [facility] 07/20/23 Appointment Raiza Diana APRN, [facility] Showing future appointments within next 90 days and meeting all other requirements NG ROOM COORDINATOR * Telephone Encounter - Ning Salas RN - 06/07/2023 11:49 AM DINING ROOM COORDINATOR Received fax that patient needs refills on Lantus. Patient was instructed to restart Lantus in February See pending orders. NG ROOM COORDINATOR documented in this encounter Plan of Treatment Not on file documented as of this encounter Visit Diagnoses Not on filedocumented in this encounter Additional Health Concerns Infection Onset Date Last Indicated Resolved Time COVID - 19 06/30/2023 06/30/202306/3006/30/2023 2:00 PM DINING ROOM COORDINATOR Respiratory Rule-Out 06/08/2024 06/08/2024 025 4:15 PM DINING ROOM COORDINATOR Influenza 06/08/2024 06/08/2024 06/15/2024 12:1 6 AM DINING ROOM COORDINATOR Assessment Noted Time PHQ-9 Depression Total Score: 0 10/21/19 21 7:00 AM CDT documented as of this encounter Care Teams Service Greeter Relationship Specialty Start Date End Date Bryan Hodgson MD [address] [place] [id number] PCP - General 05/11/07 documented as of this encounter
--- OUTSIDE RECORDS SUMMARY | 2024-08-16 15:22 | XMS_ITS | Encounter Summary ---
Author Organization [facility] Address [address] [place] [address] Phone Care Team Providers Care Blasting Contract Man Name Role Phone Bryan Hodgson MD Primary Care Provider [phone] Reason for Visit * Reason Comments Medication Refill Encounter Details Date Type Department Care Team (Late st Contact Info) Description 09/06/2019 Refill [facility] [address] [place] [address] Bryan Hodgson MD [address], [place] [id number] Medication Refill Social History Tobacco Use Types [...] on file Legal Sex Male 2:44 AM SENIOR MECHANICAL PROJECT ENGINEER Gender Identity Not on file Sexual Orientation Not on file documented as of this encounter Miscellaneous Notes * Telephone Encounter - Raiza Diana APN, AMY - 09/07/2019 11:32 AM CDT Rx approved and sent to pharmacy via e-prescribe. * Telephone Encounter - Bibiana Rockwell LPN - 09/07/2019 11:25 AM CDT Requested Prescriptions Pending Prescriptions Disp Refills traZODone (DESYREL) 50 MG Tablet [Pharmacy Med Name: traZODone HCl 50 MG Oral Tablet] 20 Tab 0 Sig: Take 1 tablet by mouth nightly Not Delegated - Psychiatry: Antidepressants - Serotonin Reuptake Inhibitor/Antagonist Failed - 09/06/2019 12:19 PM Failed - This refill cannot be delegated Passed - Valid encounter within last 12 months Past Office Visits Recent Outpatient Visits 2 months ago Reactive depression [facility] Bryan Mendez MD 3 months ago Reactive depression (situational) [facility] Raiza Burris TIE PULLER, AUDIO VISUAL EQUIPMENT RENTAL CLERK 4 months ago Mixed hyperlipidemia [facility] Raiza Burris TIE PULLER, AUDIO VISUAL EQUIPMENT RENTAL CLERK 8 months ago Seborrheic dermatitis of scalp [facility] Bryan Mendez MD 10 months ago Type 2 diabetes mellitus with insulin therapy (HCC) [facility] Bryan Mendez MD Upcoming Appointments Future Appointments In 1 month Clinic, [place] Nurse, RN [facility] In 1 month Raiza Diana APN, AUDIO VISUAL EQUIPMENT RENTAL CLERK [facility] METAMKRISTI METAMKRISTI documented in this encounter Plan of Treatment Not on file documented as of this encounter Visit Diagnoses Diagnosis Reactive depression Dysthymic disorder documented in this encounter Additional Health Concerns Infection Onset Date Last Indicated Resolved Time COVID - 19 03/26/2020 03/26/2020 04/15/2020 12:1 8 AM SENIOR MECHANICAL PROJECT ENGINEER COVID - 19 Confirmed 03/26/2020 03/26/2020 020 12:18 AM SENIOR MECHANICAL PROJECT ENGINEER COVID - 19 04/12/2022 04/12/2022 04/22/2022 12:1 9 AM SENIOR MECHANICAL PROJECT ENGINEER COVID - 19 Confirmed 04/12/2022 04/12/2022 022 12:16 AM SENIOR MECHANICAL PROJECT ENGINEER COVID - 19 06/22/2022 06/22/2022 07/02/2022 12:1 6 AM SENIOR MECHANICAL PROJECT ENGINEER COVID - 19 06/30/2023 06/30/2023 06/30/2023 2:00 PM SENIOR MECHANICAL PROJECT ENGINEER Respiratory Rule-Out 06/08/2024 06/08/2024 025 4:15 PM SENIOR MECHANICAL PROJECT ENGINEER Influenza 06/08/2024 06/08/2024 06/15/2024 12:1 6 AM SENIOR MECHANICAL PROJECT ENGINEER Assessment Noted Time PHQ-9 Depression Total Score: 21 020 2:50 PM SENIOR MECHANICAL PROJECT ENGINEER documented as of this encounter Care Teams Blasting Contract Man Relationship Specialty Start Date End Date Bryan Hodgson MD [address] [place] [address] PCP - General 05/11/07 documented as of this encounter
== END 2024-08-16 14:55 | disposition home or self-care (01) ==
LOC: ANHIMG 14:58
PROVIDERS: PCP Family Medicine
DX: R41.3 Other amnesia (principal); R41.0 Disorientation, unspecified; J98.4 Other disorders of lung; G93.9 Disorder of brain, unspecified
CPT/HCPCS: 70553; A9579

== ENCOUNTER 2024-08-17 11:46 | Outpatient (CLI) | payer MEDICARE, SELFPAY ==
--- OUTSIDE RECORDS SUMMARY | 2024-08-17 11:58 | XMS_ITS | Encounter Summary ---
Author Organization [facility] Address [address] [place] [address] Phone Care Team Providers Care Convalescent Sitter Name Role Phone Bryan Hodgson MD Primary Care Provider [phone] Reason for Visit * Reason Comments Medication Refill Encounter Details Date Type Department Care Team (Late st Contact Info) Description 10/25/2023 Refill [facility] - [place] [address] [place] [id number] Raiza Diana, MEDICAL SAFETY DIRECTOR, SPIRAL WINDER [address] [place], [place] [address] Medication Refill Social History Tobacco Use Types [...] on file Legal Sex Male 2:44 AM ATG JAVA DEVELOPER Gender Identity Not on file Sexual Orientation [...] Respiratory Rule-Out 06/08/2024 06/08/2024 025 4:15 PM ATG JAVA DEVELOPER Influenza 06/08/2024 06/08/2024 06/15/2024 12:1 6 AM ATG JAVA DEVELOPER Assessment Noted Time PHQ-9 Depression Total Score: 0 06/30/19 24 1:19 PM ATG JAVA DEVELOPER documented as of this encounter Care Teams Convalescent Sitter Relationship Specialty Start Date End Date Bryan Hodgson MD [facility] [place] [address] PCP - General 05/11/07 documented as of this encounter
--- OUTSIDE RECORDS SUMMARY | 2024-08-17 11:59 | XMS_ITS | Encounter Summary ---
Author Organization [facility] Address [address] [place] [address] Phone Care Team Providers Care Gas Welder Apprentice Name Role Phone Bryan Hodgson MD Primary Care Provider [phone] Reason for Referral * - Pending Review Specialty Diagnoses / Procedures Referred By Ana guillory Referred To Contact Diagnoses Right knee pain, unspecified chronicity Left knee pain, unspecified chronicity Procedures XR KNEE LEFT 3 VIEWS XR KNEE BILATERAL Raiza Diana APRN [address] [place] [address] Phone: tel: fax: [facility] [address] [place] [address] Phone: tel: Referral ID Status Reason Start Date Expiration Date V isits Requested Visits Authorized [id number] Pending Review 10/19/2023 1 1 Encounter Details Date Type Department Care Team (Late st Contact Info) Description 10/20/2023 Transcribe Orders NON [facility] REFERRING DOCS [address] [place] [address] Raiza Diana APRN [address] [place], [place] [address] Right knee pain, unspecified chronicity (Primary Dx); [...] 8:13 AM CDT Accession Exam Completed Date/Time [id number] XR KNEE LEFT 3 VIEWS 10/20/2023 07:30 [...] tibiofemoral and patellofemoral compartments. There is bilateral jrlu-pj-tvzb appearance of the medial tibiofemoral compartments. There is osteophytic spurring of the tibial spines. No sizable suprapatellar joint knee joint effusion on either side. Electronically Signed and Authenticated by Linden Lamb MD 10/20/2023 08:13 Procedure Note Linden Lamb MD - 10/20/2023 Accession Exam CompletedDate/Time [id number] XR KNEE LEFT 3 VIEWS 407:30 Requesting: [...] themedial tibiofemoral and patellofemoral compartments. There is dbtihddeihaxt-vy-ykbh appearance of the medial tibiofemoral compartments. There is osteophytic spurring of the tibialspines. No sizable suprapatellar joint knee joint effusion on eitherside. Electronically Signed and Authenticated by Linden Lamb MD 10/20/2023 08:13 Raiza Diana JAVA PORTAL DEVELOPER X-RAY Final R esult documented in this encounter Visit Diagnoses Diagnosis Right knee pain, unspecified chronicity- Primary Left knee pain, unspecified chronicity documented in this encounter Additional Health Concerns Infection Onset Date Last Indicated Resolved Time Suspected COVID-19 04/15/2024 04/15/2024 10:24 AM STRIPPER AND TAPER documented as of this encounter Care Teams Gas Welder Apprentice Relationship Specialty Start Date End Date Bryan oHdgson MD [facility] [place] [address] PCP - General Family Medicine 08/24/22 documented as of this encounter
--- OUTSIDE RECORDS SUMMARY | 2024-08-17 11:59 | XMS_ITS | Encounter Summary ---
Author Organization [facility] Address [address] [place] [address] Phone Care Team Providers Care Brickmason Contractor Name Role Phone Bryan Hodgson MD Primary Care Provider [phone] Reason for Visit * Reason Comments Medication Refill Encounter Details Date Type Department Care Team (Late st Contact Info) Description 12/12/2020 Refill [facility] [address] [place] [address] Raiza Diana APRN, WIRE ROPE SLING MAKER [address] [place], [place] [address] Medication Refill Social History Tobacco Use Types [...] on file Legal Sex Male 2:44 AM JUNIOR BOOKKEEPER Gender Identity Not on file Sexual Orientation [...] 19 04/12/2022 04/12/2022 04/22/2022 12:1 9 AM JUNIOR BOOKKEEPER COVID - 19 Confirmed 04/12/2022 04/12/2022 022 12:16 AM JUNIOR BOOKKEEPER COVID - 19 06/22/2022 06/22/2022 07/02/2022 12:1 6 AM JUNIOR BOOKKEEPER COVID - 19 06/30/2023 06/30/2023 06/30/2023 2:00 PM JUNIOR BOOKKEEPER Respiratory Rule-Out 06/08/2024 06/08/2024 025 4:15 PM JUNIOR BOOKKEEPER Influenza 06/08/2024 06/08/2024 06/15/2024 12:1 6 AM JUNIOR BOOKKEEPER Assessment Noted Time PHQ-9 Depression Total Score: 0 10/21/19 21 7:00 AM CDT documented as of this encounter Care Teams Brickmason Contractor Relationship Specialty Start Date End Date Bryan Hodgson MD [facility] [place] [place] [address] PCP - General 05/11/07 documented as of this encounter
--- OUTSIDE RECORDS SUMMARY | 2024-08-17 11:59 | XMS_ITS | Encounter Summary ---
Author Organization [facility] Address [address] 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 Gender Identity Not on file Sexual Orientation [...] 19 04/12/2022 04/12/2022 04/22/2022 12:1 9 AM GOVERNMENT TEACHER COVID - 19 Confirmed 04/12/2022 04/12/2022 022 12:16 AM GOVERNMENT TEACHER COVID - 19 06/22/2022 06/22/2022 07/02/2022 12:1 6 AM GOVERNMENT TEACHER COVID - 19 06/30/2023 06/30/2023 06/30/2023 2:00 PM GOVERNMENT TEACHER Respiratory Rule-Out 06/08/2024 06/08/2024 025 4:15 PM GOVERNMENT TEACHER Influenza 06/08/2024 06/08/2024 06/15/2024 12:1 6 AM GOVERNMENT TEACHER Assessment Noted Time PHQ-9 Depression Total Score: 0 10/21/19 21 7:00 AM CDT documented as of this encounter Care Teams Needle Grinder Relationship Specialty Start Date End Date Bryan Hodgson MD [address] [place] [address] PCP - General 05/11/07 documented as of this encounter
--- OUTSIDE RECORDS SUMMARY | 2024-08-17 11:59 | XMS_ITS | Encounter Summary ---
Author Organization [facility] Address [address] 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 Gender Identity Not on file Sexual Orientation [...] 19 04/12/2022 04/12/2022 04/22/2022 12:1 9 AM AIRBRUSH PAINTER COVID - 19 Confirmed 04/12/2022 04/12/2022 022 12:16 AM AIRBRUSH PAINTER COVID - 19 06/22/2022 06/22/2022 07/02/2022 12:1 6 AM AIRBRUSH PAINTER COVID - 19 06/30/2023 06/30/2023 06/30/2023 2:00 PM AIRBRUSH PAINTER Respiratory Rule-Out 06/08/2024 06/08/2024 025 4:15 PM AIRBRUSH PAINTER Influenza 06/08/2024 06/08/2024 06/15/2024 12:1 6 AM AIRBRUSH PAINTER Assessment Noted Time PHQ-9 Depression Total Score: 0 10/21/19 21 7:00 AM CDT documented as of this encounter Care Teams Buckle Frame Shaper Relationship Specialty Start Date End Date Bryan Hodgson MD [address] [place] [address] PCP - General 05/11/07 documented as of this encounter
--- OUTSIDE RECORDS SUMMARY | 2024-08-17 11:59 | XMS_ITS | Encounter Summary ---
Author Organization [facility] Address [address] 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
--- OUTSIDE RECORDS SUMMARY | 2024-08-17 11:59 | XMS_ITS | Encounter Summary ---
Author Organization [facility] Address [address] [place] [address] Phone Care Team Providers Care Early Head Start Teacher Name Role Phone Bryan Hodgson MD Primary Care Provider [phone] Reason for Visit * Reason Comments Medication Refill Encounter Details Date Type Department Care Team (Late st Contact Info) Description 03/22/2022 Refill [facility] [address] [address] Raiza Diana, PYTHON ENGINEER, DRAIN TILE MACHINE OPERATOR [address] [place], [place] [address] Medication Refill Social History Tobacco Use Types [...] on file Legal Sex Male 2:44 AM ORAL AND MAXILLOFACIAL PATHOLOGIST Gender Identity Not on file Sexual Orientation [...] 19 04/12/2022 04/12/2022 04/22/2022 12:1 9 AM ORAL AND MAXILLOFACIAL PATHOLOGIST COVID - 19 Confirmed 04/12/2022 04/12/2022 022 12:16 AM ORAL AND MAXILLOFACIAL PATHOLOGIST COVID - 19 06/22/2022 06/22/2022 07/02/2022 12:1 6 AM ORAL AND MAXILLOFACIAL PATHOLOGIST COVID - 19 06/30/2023 06/30/2023 06/30/2023 2:00 PM ORAL AND MAXILLOFACIAL PATHOLOGIST Respiratory Rule-Out 06/08/2024 06/08/2024 025 4:15 PM ORAL AND MAXILLOFACIAL PATHOLOGIST Influenza 06/08/2024 06/08/2024 06/15/2024 12:1 6 AM ORAL AND MAXILLOFACIAL PATHOLOGIST Assessment Noted Time PHQ-9 Depression Total Score: 0 10/21/19 21 7:00 AM CDT documented as of this encounter Care Teams Early Head Start Teacher Relationship Specialty Start Date End Date Bryan Hodgson MD [address] [place] [address] PCP - General 05/11/07 documented as of this encounter
--- OUTSIDE RECORDS SUMMARY | 2024-08-17 11:59 | XMS_ITS | Encounter Summary ---
Author Organization [facility] Address [address] 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 Gender Identity Not on file Sexual Orientation Not on file documented as of this encounter Plan of Treatment Not on file documented as of this encounter Visit Diagnoses Not on filedocumented in this encounter Additional Health Concerns Infection Onset Date Last Indicated Resolved Time COVID - 19 04/12/2022 04/12/2022 04/22/2022 12:1 9 AM LANDSCAPE DESIGNER COVID - 19 Confirmed 04/12/2022 04/12/202225/2 022 12:16 AM LANDSCAPE DESIGNER COVID - 19 06/22/2022 06/22/2022 07/02/2022 12:1 6 AM LANDSCAPE DESIGNER COVID - 19 06/30/2023 06/30/2023 06/30/2023 2:00 PM LANDSCAPE DESIGNER Respiratory Rule-Out 06/08/2024 06/08/2024 025 4:15 PM LANDSCAPE DESIGNER Influenza 06/08/2024 06/08/2024 06/15/2024 12:1 6 AM LANDSCAPE DESIGNER Assessment Noted Time PHQ-9 Depression Total Score: 0 10/21/19 21 7:00 AM CDT documented as of this encounter Care Teams Superintendent Local Relationship Specialty Start Date End Date Bryan Hodgson MD [address] [place] [address] PCP - General 05/11/07 documented as of this encounter
--- OUTSIDE RECORDS SUMMARY | 2024-08-17 11:59 | XMS_ITS | Encounter Summary ---
Author Organization [facility] Address [address] 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 No / Unsure 06/22/2022 9:20 AM AUTOMOBILE RADIO REPAIRER documented as of this encounter Miscellaneous Notes * Telephone Encounter - Raiza Diana APRN, CNP - 06/22/2022 10:42 AM CST Noted MOBILE RADIO REPAIRER * Telephone Encounter - Abby Huizar RN [...] Dept Phone 06/22/2022 9:40 AM Raiza Diana [facility] [phone] Patient verbalized understanding and is agreeable. See [...] and SAME as normal Protocols used: BREATHING [id number] MOBILE RADIO REPAIRER documented in this encounter Plan of Treatment Not on file documented as of this encounter Visit Diagnoses Not on filedocumented in this encounter Additional Health Concerns Infection Onset Date Last Indicated Resolved Time COVID - 19 06/22/2022 06/22/2022 07/02/2022 12:1 6 AM AUTOMOBILE RADIO REPAIRER COVID - 19 06/30/2023 06/30/2023 06/30/2023 2:00 PM AUTOMOBILE RADIO REPAIRER Respiratory Rule-Out 06/08/2024 06/08/2024 025 4:15 PM AUTOMOBILE RADIO REPAIRER Influenza 06/08/2024 06/08/2024 06/15/2024 12:1 6 AM AUTOMOBILE RADIO REPAIRER Assessment Noted Time PHQ-9 Depression Total Score: 0 10/21/19 21 7:00 AM CDT documented as of this encounter Care Teams Garde Manager Relationship Specialty Start Date End Date Bryan Hodgson MD [address] [place] [address] PCP - General 05/11/07 documented as of this encounter
--- OUTSIDE RECORDS SUMMARY | 2024-08-17 11:59 | XMS_ITS | Clinical Summary ---
Author Organization [facility] Address [address] [place] [address] Phone Care Team Providers Care Manufacturing Controller Name Role Phone Bryan Hodgson MD Primary Care Provider [phone] Allergies No known active allergies Medications dorzolamide-timol [...] 90 mcg/actuation inhalerIndication s:COPD with acute exacerbation ([facility]),Hypoxia Take 2 puffs inhaled by mouth [...] - 07/16/2024 11:59 PM CDT Hospital Encounter [facility] [address] [place] [address] Raiza Diana APRN General medical exam (Primary Dx); Chronic obstructive pulmonary disease, unspecified COPD type; Abnormal x-ray Discharge Disposition: Discharged to Home or Self Care 07/12/2024 Transcribe Orders NON [facility] REFERRING DOCS [address] [place] [address] Raiza Diana APRN Chronic obstructive pulmonary disease, unspecified COPD type (Primary Dx); Abnormal x-ray 07/06/2024 Telephone RADIOLOGY NAVIGATOR [address] [place] [id number] Identified, No Provider 06/20/2024 Transcribe Orders NON [facility] REFERRING DOCS [address] [place] [address] Bryan Hodgson MD Abnormal x-ray (Primary Dx); COPD exacerbation ([facility]) 06/18/2024 2:50 PM PRODUCT ANALYST Lab Only [facility] [address] [place] [id number] Raiza Diana, HSE SPECIALIST Type 2 diabetes mellitus without complication, with long-term current use of insulin ([facility]) 06/18/2024 Transcribe Orders [facility] [address] [place] [address] Raiza Diana APRN Type 2 diabetes mellitus without complication, with long-term current use of insulin ([facility]) (Primary Dx) 06/15/2024 Transcribe Orders NON [facility] REFERRING DOC [address] [place] [address] Raiza Diana APRN Abnormal x-ray (Primary Dx) 06/13/2024 12:55 PM PRODUCT ANALYST - 06/13/2024 2:15 PM PRODUCT ANALYST Emergency [facility] Emergency Department [address] [place] [id number] Bladimir Mccarthy MD Acute cough (Primary Dx); [...] Comments Blood Pressure 140/63 06/13/2024 11:54 AM PRODUCT ANALYST Pulse 74 06/13/2024 11:54 AM PRODUCT ANALYST Temperature 36.6 C (97.8 F) 06/13/2024 11:54 AM PRODUCT ANALYST Respiratory Rate 30 04/15/2024 11:00 AM PRODUCT ANALYST Oxygen Saturation 91% 06/13/2024 11:54 AM PRODUCT ANALYST Inhaled Oxygen Concentration - - Weight 72.6 kg (160 lb) 06/13/2024 11:54 AM PRODUCT ANALYST Height 162.6 cm (5' 4 ) 06/13/2024 11:54 AM PRODUCT ANALYST Body Mass Index 27.46 06/13/2024 11:54 AM PRODUCT ANALYST Plan of Treatment Health Maintenance Due Date [...] METABOLIC PANEL ([facility]) Routine 06/18/2024 2:45 PM PRODUCT ANALYST Type 2 diabetes mellitus without complication, with long-term current use of insulin ([facility]) XR CHEST AP OR PA ONLY STAT 06/13/2024 1:51 PM PRODUCT ANALYST COMP METABOLIC PANEL ([facility]) Routine 04/15/2024 10:05 AM PRODUCT ANALYST from Last 3 Months or Most Recently Relevant to Health Maintenance Results * (ABNORMAL) CT CHEST WITH CONTRAST (07/16/2024 10:39 AM CDT) Anatomical Region Laterality Modality Chest N/A Computed Tomogra phy 07/16/2024 10:3 8 AM CDT Narrative 07/16/2024 10:50 AM CDT Accession Exam Completed Date/Time [id number] CT CHEST WITH CONTRAST 07/16/2024 10:39 Requesting: [...] has been communicated to the Reading Room Manager Book for transmission to the clinical service on 07/16/2024 10:49 AM. Electronically Signed and Authenticated by Linden Lamb MD 07/16/2024 10:50 Procedure Note Linden Lamb MD - 07/16/2024 Accession Exam CompletedDate/Time [id number] CT CHEST WITH CONTRAST 0:39 Requesting: RAIZA [...] Final Result * (ABNORMAL) BASIC METABOLIC PANEL ([facility]) (06/18/2024 2:45 PM PRODUCT ANALYST) GLUCOSE ([facility]) 333(H) 70 - 99 mg/dL [facility] BUN ([facility]) 16 9 - 20 mg/dL [facility] CREATININE ([facility]) 0.71 0.66 - 1.25 mg/dL [facility] eGFR (2020 CKD-EPI) ([facility]) 90 mL/min/1.7 3m2 [facility] SODIUM ([facility]) 137 136 - 145 mmol/L [facility] POTASSIUM ([facility]) 4.2 3.5 - 5.0 mmol/L [facility] CHLORIDE [facility] 97(L) 98 - 107 mmol/L [facility] CARBON DIOXIDE ([facility]) 35(H) 22 - 30 mmol/L [facility] CALCIUM ([facility]) 9.4 8.4 - 10.2 mg/dL [facility] 06/18/2024 2:45 PM PRODUCT ANALYST 06/18/2024 2:48 PM PRODUCT ANALYST Narrative [facility] - 06/18/2024 3:28 PM PRODUCT ANALYST Release to patient->Immediate us Raiza Diana APRN [facility] - BLOOD Fin al Result [facility] [address] [place] [id number], * (ABNORMAL) XR CHEST AP OR PA ONLY (06/13/2024 1:51 PM PRODUCT ANALYST) Anatomical Region Laterality Modality Chest N/A Digital Radiogra phy 06/13/2024 1:43 PM PRODUCT ANALYST Narrative 06/13/2024 1:53 PM PRODUCT ANALYST Accession Exam Completed Date/Time [id number] XR CHEST AP OR PA ONLY 06/13/2024 [...] Lamb MD - 06/13/2024 Accession Exam CompletedDate/Time [id number] XR CHEST AP OR PA ONLY 513:51 [...] Final Result * (ABNORMAL) COMP METABOLIC PANEL ([facility]) (04/15/2024 10:05 AM PRODUCT ANALYST) GLUCOSE ([facility]) 349(H) 70 - 99 mg/dL [facility] BUN ([facility]) 19 9 - 20 mg/dL [facility] CREATININE ([facility]) 0.70 0.66 - 1.25 mg/dL [facility] eGFR (2020 CKD-EPI) ([facility]) 91 mL/min/1.7 3m2 [facility] SODIUM ([facility]) 137 136 - 145 mmol/L [facility] POTASSIUM ([facility]) 4.4 3.5 - 5.0 mmol/L [facility] CHLORIDE ([facility]) 94(L) 98 - 107 mmol/L [facility] CARBON DIOXIDE ([facility]) 35(H) 22 - 30 mmol/L [facility] AST ([facility]) 24 14 - 59 U/L [facility] ALKALINE PHOSPHATASE ([facility]) 80 38 - 126 U/L [facility] BILIRUBIN TOTAL ([facility]) 0.5 0.2 - 1.3 mg/dL [facility] TOTAL PROTEIN ([facility]) 7.9 6.3 - 8.3 gm/dL [facility] ALBUMIN ([facility]) 4.0 3.5 - 5.0 gm/dL [facility] CALCIUM ([facility]) 9.3 8.4 - 10.2 mg/dL [facility] ALT ([facility]) 19 10 - 70 U/L [facility] 04/15/2024 10:0 5 AM PRODUCT ANALYST 04/15/2024 10:09 AM PRODUCT ANALYST Narrative [facility] - 04/15/2024 10:41 AM PRODUCT ANALYST Release to patient->Immediate Tulio Ho MD [facility] - BLOOD Final Res ult [facility] [address] [place] [address], from Last 3 Months or Most Recently Relevant to Health Maintenance Insurance MEDICARE Segment [facility] furniture Commercial (POS, PPO, etc) Address: [address] [place] [address] MEDICARE [facility] [employer] [facility] Commercial (POS, PPO, etc) Address: [address] [place] [address] Care Teams Manufacturing Controller Relationship Specialty Start Date End Date Bryan Hodgson MD [address] [place] [address] PCP - General Family Medicine 08/24/22
--- OUTSIDE RECORDS SUMMARY | 2024-08-17 11:59 | XMS_ITS | Encounter Summary ---
Author Organization [facility] Address [address] [place] [address] Phone Care Team Providers Care Health Equipment Servicer Name Role Phone Bryan Hodgson MD Primary Care Provider [phone] Reason for Visit * Reason Comments Medication Refill Encounter Details Date Type Department Care Team (Late st Contact Info) Description 06/07/2023 Refill [facility] - [facility] Care - [place] [address] [place] [phone] Raiza Diana APRN, ONLINE MEDIA BUYER [address], [place] [phone] Medication Refill Social History Tobacco Use Types [...] file Legal Sex Male 2:44 AM AUTOMOBILE ASSEMBLER Gender Identity Not on file Sexual Orientation Not on file documented as of this encounter Miscellaneous Notes * Telephone Encounter - Raiza Diana APRN, ONLINE MEDIA BUYER - 06/07/2023 12:10 PM CST Rx approved and sent to pharmacy via e-prescribe. MOBILE ASSEMBLER * Telephone Encounter - Lidia Vazquez RN - 06/07/2023 11:51 AM AUTOMOBILE ASSEMBLER Medication failed the protocol, provider to review [...] 03/15/23 Office Visit Raiza Diana APRN, [facility] [place] [facility] 01/19/23 Office Visit Raiza Diana APRN, [facility] Showing recent visits within past 365 days and meeting all other requirements Future Appointments Date Type Provider Dept 07/15/23 Appointment Clinic[facility] Ver[facility] Doyle[facility]23 Appointment Raiza Diana APRN, [facility] Showing future appointments within next 90 days and meeting all other requirements MOBILE ASSEMBLER * Telephone Encounter - Ning Salas RN - 06/07/2023 11:49 AM AUTOMOBILE ASSEMBLER Received fax that patient needs refills on Lantus. Patient was instructed to restart Lantus in February See pending orders. MOBILE ASSEMBLER documented in this encounter Plan of Treatment Not on file documented as of this encounter Visit Diagnoses Not on filedocumented in this encounter Additional Health Concerns Infection Onset Date Last Indicated Resolved Time COVID - 19 06/30/2023 06/30/202306/3006/30/2023 2:00 PM AUTOMOBILE ASSEMBLER Respiratory Rule-Out 06/08/2024 06/08/2024 025 4:15 PM AUTOMOBILE ASSEMBLER Influenza 06/08/2024 06/08/2024 06/15/2024 12:1 6 AM AUTOMOBILE ASSEMBLER Assessment Noted Time PHQ-9 Depression Total Score: 0 10/21/19 21 7:00 AM CDT documented as of this encounter Care Teams Health Equipment Servicer Relationship Specialty Start Date End Date Bryan Hodgson MD [address] [place] [id number] PCP - General 05/11/07 documented as of this encounter
--- OUTSIDE RECORDS SUMMARY | 2024-08-17 11:59 | XMS_ITS | Clinical Summary ---
Author Organization [facility] Address [address] [place] [address] Phone Care Team Providers Care Ceramic Restorer Name Role Phone Bryan Hodgson MD Primary Care Provider [phone] Allergies Active Allergy Reactions Criticality Noted Date [...] 20 Active Insulin Pen Needle (TRUEplus Pen [place]) 31G X 8 MM Misc USE NIGHTLY [...] insulin 04/16/2013 Overview (04/14/2020): Eye exam 04/04/2020 [facility] Foot exam 04/14/2020 Hyperlipemia 09/11/2008 Resolved Problems Problem Noted Date Diagnosed Date Resolved Date Tobacco abuse 09/11/2008 03/29/2012 Encounters Date Type Department Care Team Description 08/06/2024 Refill [place] [address] [place] [phone] Bryan Hodgson MD Medication Refill 08/03/2024 Refill [facility] [address] [place] [phone] Bryan Hodgson MD Medication Refill (Glucose Blood (FREESTYLE LITE) Strip) 07/19/2024 Results Follow-Up [facility] [address] [place] [phone] Raiza Diana INSPECTOR INTEGRATED CIRCUITS, OVERWEAVER 07/17/[address] [facility] [address] [place] [phone] Bryan Hodgson MD Request for Records 07/17/2024 Telephone [facility] [address] [phone] Diego Bales MD Referral; Procedure 07/16/2024 4:44 PM CDT - 07/16/2024 11:59 PM CDT Hospital Encounter [facility] [address] [place] [address] Provider, Not On File Discharge Disposition: Discharged to home or Selfcare 07/16/2024 4:44 PM CDT - 07/16/2024 11:59 PM CDT Hospital Encounter [facility] [address] [place] [phone] Provider, Not On File Discharge Disposition: Discharged to home or Selfcare 07/16/2024 Telephone [facility] [address] [place] [address] Bryan Hodgson MD Follow-up 07/16/[address] [facility] [address] [place] [phone] Bryan Hodgson MD Advice Only 07/13/2024 Results Follow-Up [facility] [address] [place] [address] Raiza Dinaa APRN, OVERWEAVER Hyponatremia; Type 2 diabetes mellitus without complication, with long-term current use of insulin (HCC); Mixed hyperlipidemia 07/12/2024 1:00 PM WASHHOUSE HAND Office Visit [facility] [address] [place] [address] Raiza Diana APRN, OVERWEAVER Type 2 diabetes mellitus without complication, with long-term current use of insulin (HCC) (Primary Dx); Chronic obstructive pulmonary disease, unspecified COPD type (HCC); Abnormal x-ray; Mixed hyperlipidemia; Memory changes; Claustrophobia Discharge Disposition: Discharged to home or Selfcare 07/12/[address] [phone] Bryan Hodgson MD Need Order 07/12/2024 Travel 07/11/[address] [facility] [address] [place] [phone] Bryan Hodgson MD Follow-up 07/10/[address] [facility] [address] [place] [phone] Bryan Hodgson MD Advice Only; Cough 06/28/2024 9:40 AM WASHHOUSE HAND Office Visit [place] [phone] Raiza Diana APRN, OVERWEAVER Mild cognitive impairment (Primary Dx); Claustrophobia Discharge Disposition: Discharged to home or Selfcare 06/27/2024 Nurse Triage [address] [phone] Bryan Hodgson MD Pneumonia 06/26/2024 10:00 AM WASHHOUSE HAND Office Visit [place] [phone] Raiza Diana APRN, OVERWEAVER Subacute cough (Primary Dx); Penile rash Discharge Disposition: Discharged to home or Selfcare 06/26/2024 Travel 06/25/2024 Nurse Triage [address] [phone] Bryan Hodgson MD Cough 06/21/2024 11:20 AM WASHHOUSE HAND Office Visit [address] [phone] Hemp, Carri Benavides APRN, OVERWEAVER Community acquired bacterial pneumonia (Primary Dx) Discharge Disposition: Discharged to home or Selfcare 06/21/2024 Travel 06/21/2024 [facility] [address] [place] [phone] Bryan Hodgson MD Advice Only; Cough 06/18/[address] [phone] Bryan Hodgson MD Follow-up 06/15/[address] [phone] Raiza Diana APRN, AMY Follow-up (Chest xray follow up ) 06/12/2024 9:00 AM WASHHOUSE HAND Office Visit [address] [phone] Bryan Hodgson MD Influenza A (Primary Dx) Discharge Disposition: Discharged to home or Selfcare 06/12/2024 Travel 06/11/2024 Nurse Triage [facility] [address] [place] [phone] Bryan Hodgson MD Influenza; Shortness of Breath 06/08/2024 4:00 PM WASHHOUSE HAND Office Visit [address] [phone] Raiza Diana APRN, OVERWEAVER Acute cough (Primary Dx); Influenza A Discharge Disposition: Discharged to home or Selfcare 06/08/2024 Travel 06/08/2024 [facility] [address] [place] [phone] Bryan Hodgson MD Cough 06/07/2024 Nurse Triage [facility] [address] [place] [phone] Bryan Hodgson MD Cough 05/31/2024 Patient Outreach [facility] [address] [place] [phone] [facility] 05/22/2024 Refill [facility] [address] [phone] Raiza Diana, INSPECTOR INTEGRATED CIRCUITS, OVERWEAVER Medication Refill from Last 3 Months Immunizations Immunization Administration Dates Next Due Covid-19, Mrna, Lnp-s, PF, 1 00 mcg/0.5 mL Dose (Moderna) 08/28/2020,07/31/2020 Influenza, Trivalent, Adjuvanted, PF 01/16/2024 Pneumococcal conjugate PCV20 , polysaccharide [id number] conjugate, adjuvant, PF 01/16/2024 Family History Medical [...] on file Legal Sex Male 2:44 AM WASHHOUSE HAND Gender Identity Not on file Sexual Orientation Not on file Last Filed Vital Signs Vital Sign Reading Time Taken Comments Blood Pressure 138/76 07/12/2024 1:01 PM WASHHOUSE HAND Pulse 95 07/12/2024 1:01 PM WASHHOUSE HAND Temperature 36.9 C (98.5 F) 07/12/2024 1:01 PM WASHHOUSE HAND Respiratory Rate 18 07/12/2024 1:01 PM WASHHOUSE HAND Oxygen Saturation 94% 07/12/2024 1:01 PM WASHHOUSE HAND Inhaled Oxygen Concentration - - Weight 60.5 kg (133 lb 6.4 oz) 07/12/2024 1:01 P M WASHHOUSE HAND Height 175.3 cm (5' 9 ) 07/12/2024 1:01 PM WASHHOUSE HAND Body Mass Index 19.7 07/12/2024 1:01 PM WASHHOUSE HAND Plan of Treatment Health Maintenance Due Date [...] NINE RATIO RANDOM Routine 07/12/2024 3:34 PM WASHHOUSE HAND Type 2 diabetes mellitus without complication, with long-term current use of insulin (HCC) POCT GLUCOSE Routine 07/12/2024 1:51 PM WASHHOUSE HAND Type 2 diabetes mellitus without complication, with long-term current use of insulin (HCC) THYROID STIMULATING HORMONE (TSH) Today 07/12/2024 1:38 PM WASHHOUSE HAND Memory changes VITAMIN B12 Routine 07/12/2024 1:38 PM WASHHOUSE HAND Memory changes HEMOGLOBIN A1C W/ ESTIMATED GLUCOSE Routine 07/12/2024 1:38 PM WASHHOUSE HAND Type 2 diabetes mellitus without complication, with long-term current use of insulin (HCC) LIPID PANEL Routine 07/12/2024 1:38 PM WASHHOUSE HAND Mixed hyperlipidemia CMP (COMPREHENSIVE METABOLIC PANEL) Routine 07/12/2024 1:38 PM WASHHOUSE HAND Mixed hyperlipidemia BASIC METABOLIC PANEL W/ CALCIUM TOTAL 06/18/2024 12:00 AM WASHHOUSE HAND POC INFLUENZA A AND B BY MOLECULAR Routine 06/08/2024 4:05 PM WASHHOUSE HAND Acute cough HM DILATED EYE EXAM 05/21/2024 1 2:00 AM WASHHOUSE HAND from Last 3 Months Results * CT REFERENCE IMAGES FOR IMAGE IMPORT (07/16/2024 4:44 PM CDT) Only the most recent of2 resultswithin the time period is included. us Not On File Provider IMG CT ORDERABLES Final Res ult * CT CHEST W CONTRAST (07/16/2024 12:00 AM CDT) Anatomical Region Laterality Modality Chest N/A Other 07/16/2024 us Raiza Diana INSPECTOR INTEGRATED CIRCUITS, OVERWEAVER IMG CT ORDERABLES Final Result * (ABNORMAL) UR MICROALBUMIN/CREATININE RATIO RANDOM (07/12/2024 3:34 PM WASHHOUSE HAND) RAN UR MICROALBUMIN 4.80 mg/dL 07/13/2024 6:13 PM WASHHOUSE HAND [facility] Comment:No reference range h as been established. Consider Clinical Correlation. CREATININE URINE 23.6 mg/dL 07/14/19 25 6:13 PM WASHHOUSE HAND [facility] Comment:No reference range h as been established. Consider Clinical Correlation. ALB/CREAT RATIO 203(H) 0 - 30 mg/g CRE 07/13/2024 6:13 PM WASHHOUSE HAND [facility] Urine Non-Phlebotomy Collection / Unknown 07/12/2024 3:34 PM WASHHOUSE HAND 07/12/2024 3:34 PM WASHHOUSE HAND Raiza Diana APRN, CNP URINE ORDERABLES F inal Result [facility] [address] [place] [address], [place] * (ABNORMAL) POCT GLUCOSE (07/12/2024 1:51 PM WASHHOUSE HAND) GLUCOSE 552(A) 70 - 99 mg/dL 07/12/2024 1:51 PM WASHHOUSE HAND Raiza Diana APRN, CNP POINT OF CARE TEST ING (MANUAL) Final Result * (ABNORMAL) HEMOGLOBIN A1C W/ ESTIMATED GLUCOSE (07/12/2024 1:38 PM WASHHOUSE HAND) HGB-A1C 11.9(H) 4.0 - 6.0 % 07/12/2024 6:10 PM WASHHOUSE HAND [facility] Est Average Glucose 294.8 mg/dL 07/12/2024 6:10 PM WASHHOUSE HAND [facility] Blood Venipuncture / Unknown 07/12/2024 1:38 PM WASHHOUSE HAND 07/12/2024 1:38 PM WASHHOUSE HAND Narrative [facility] - 07/12/2024 6:10 PM WASHHOUSE HAND Specimens containing greater than 5% of Hemoglobin F may result in lower than expected % HbA1c results. Raiza Diana APRN, CNP CHEMISTRY ORDERABL ES Final Result Performing Organization Address City/[facility]/ZIP Co de Phone Number [facility] [address] [place] [address], [place] * VITAMIN B12 (07/12/2024 1:38 PM WASHHOUSE HAND) VITAMIN B12 414 213 - 816 pg/mL 07/12/2024 5:58 PM WASHHOUSE HAND [facility] Blood Venipuncture / Unknown 07/12/2024 1:38 PM WASHHOUSE HAND 07/12/2024 1:38 PM WASHHOUSE HAND us Raiza Diana APRN, CNP CHEMISTRY ORDERABL ES Final Result Performing Organization Address City/[facility]/ZIP Co de Phone Number [facility] [address] [place] [address], [place] * THYROID STIMULATING HORMONE (TSH) (07/12/2024 1:38 PM WASHHOUSE HAND) TSH 0.431 0.300 - 5.000 mIU/L 07/12/2024 5:38 PM WASHHOUSE HAND [facility] Blood Venipuncture / Unknown 07/12/2024 1:38 PM WASHHOUSE HAND 07/12/2024 1:38 PM WASHHOUSE HAND us Raiza Diana APRN, CNP CHEMISTRY ORDERABL ES Final Result Performing Organization Address City/[facility] Co de Phone Number [facility] [address] [place] [address], [place] * (ABNORMAL) LIPID PANEL (07/12/2024 1:38 PM WASHHOUSE HAND) CHOLESTEROL 206(H) <200 mg/dL 07/12/2024 5:27 PM WASHHOUSE HAND [facility] TRIGLYCERIDES 206(H) <150 mg/dL 07/12/2024 5:27 PM WASHHOUSE HAND [facility] HDL CHOLESTEROL 55 >40 mg/dL 5:27 PM WASHHOUSE HAND [facility] LDL 110 <130 mg/dL 07/12/2024 5:27 PM WASHHOUSE HAND [facility] VLDL 41 10 - 50 mg/dL 07/12/2024 5:27 PM WASHHOUSE HAND [facility] CHOL/HDL RATIO 3.7 0.0 - 4.4 07/12/2024 5:27 PM WASHHOUSE HAND [facility] NON-HDL CHOLESTEROL 151(H) <130 mg/dL 07/12/2024 5:27 PM [facility] IS THE PATIENT REQUIRED TO BE FASTING? Yes 07/12/2024 5:27 PM [facility] HAS THE PATIENT BEEN FASTING? Yes 07/12/2024 5:27 PM [facility] Blood Venipuncture / Unknown 07/12/2024 1:38 PM WASHHOUSE HAND 07/12/2024 1:38 PM WASHHOUSE HAND Narrative [facility] - 07/12/2024 5:27 PM WASHHOUSE HAND NCEP GUIDELINES FOR LIPID INTERPRETATION TOTAL CHOLESTEROL [...] APRN, CNP CHEMISTRY ORDERABL ES Final Result [facility] [address] [place] [address], * (ABNORMAL) CMP (COMPREHENSIVE METABOLIC PANEL) (07/12/2024 1:38 PM WASHHOUSE HAND) SODIUM 132(L) 136 - 145 mmol/L 07/12/2024 5:36 PM WASHHOUSE HAND [facility] POTASSIUM 4.1 3.5 - 5.1 mmol/L 07/12/2024 5:36 PM [facility] CHLORIDE 97(L) 98 - 107 mmol/L 07/12/2024 5:36 PM [facility] CO2, VENOUS 24 22 - 30 mmol/L 07/12/2024 5:36 PM [facility] ANION GAP 11.0 <18.0 mmol/L 07/12/2024 5:36 PM [facility] GLUCOSE 501(HH) 70 - 99 mg/dL 07/12/2024 5:36 PM [facility] BUN 20 8 - 26 mg/dL 07/12/2024 5:36 PM [facility] CREATININE, BLOOD 1.04 0.70 - 1.30 mg/dL 07/12/2024 5:36 PM [facility] BUN/CREATININE RATIO 19 12 - 20 ratio 07/12/2024 5:36 PM [facility] TOTAL PROTEIN 7.8 6.0 - 8.0 g/dL 07/12/2024 5:36 PM [facility] ALBUMIN 3.7 3.5 - 5.0 g/dL 07/12/2024 5:36 PM [facility] A/G RATIO 0.9(L) 1.0 - 2.2 07/12/2024 5:36 PM [facility] CALCIUM 9.2 8.7 - 10.5 mg/dL 07/12/2024 5:36 PM [facility] T BILI 0.3 0.2 - 1.2 mg/dL 07/12/2024 5:36 PM [facility] SGOT (AST) 20 <43 U/L 07/12/2024 5:36 PM [facility] SGPT (ALT) 8 <56 U/L 07/12/2024 5:36 PM [facility] ALKALINE PHOSPHATASE 105 40 - 150 U/L 07/12/2024 5:36 PM [facility] IS THE PATIENT REQUIRED TO BE FASTING? No 07/12/2024 5:36 PM [facility] GFR, ESTIMATED >60 >=60 07/12/2024 5:36 PM [facility] Comment: Creatinine Clearance is the preferred criteria for selecting drug dose adjustments in renally impaired patients. The GFR is provided as additional pertinent clinical information. GFR is reported in mL/min/1.73 sq m. Calculation based on the Chronic Kidney Disease Epidemiology Collaboration (CKD- EPI) equation refit without adjustment for race. GFR, EST. >60 >=60 025 5:36 PM WASHHOUSE HAND [facility] GFR, EST. NONAFRICAN >60 >=60 07/12/2024 5:36 PM WASHHOUSE HAND [facility] Blood Venipuncture / Unknown 07/12/2024 1:38 PM WASHHOUSE HAND 07/12/2024 1:38 PM WASHHOUSE HAND Raiza Diana APRN, CNP CHEMISTRY ORDERABL ES Final Result Performing Organization Address City/[facility]/ZIP Co de Phone Number [facility] [address] [facility] [place] [address], * BASIC METABOLIC PANEL W/ CALCIUM TOTAL (06/18/2024 12:00 AM WASHHOUSE HAND) 06/18/2024 Raiza Diana APRN, CNP CHEMISTRY ORDERABL ES Final Result Performing Organization Address [facility] Co de Phone Number SCAN * (ABNORMAL) POC INFLUENZA A AND B BY MOLECULAR (06/08/2024 4:05 PM WASHHOUSE HAND) INFLUENZA A RNA Positive(A) Negative, Invalid INFLUENZA B RNA Negative Negative, Invalid PROCEDURE CONTROL Valid Swab 06/08/2024 4:05 PM WASHHOUSE HAND Raiza Diana APRN, CNP POINT OF CARE TEST ING (MANUAL) Final Result * HM DILATED EYE EXAM (05/21/2024 12:00 AM WASHHOUSE HAND) 05/21/2024 Provider Scan PROCEDURE/MINOR SURGICAL ORDERAB LES Final Result Performing Organization Address City/[facility] Co de Phone Number SCAN from Last 3 Months Insurance MEDICARE [facility] Care Teams Ceramic Restorer Relationship Specialty Start Date End Date Bryan Hodgson MD [address] [place] [address] PCP - General 05/11/07
--- OUTSIDE RECORDS SUMMARY | 2024-08-17 11:59 | XMS_ITS | Encounter Summary ---
Author Organization [facility] Address [address] [place] [address] Phone Care Team Providers Care Neckties Painter Name Role Phone Bryan Hodgson MD Primary Care Provider [phone] Reason for Visit * Reason Comments Medication Refill Encounter Details Date Type Department Care Team (Late st Contact Info) Description 08/31/2021 Refill [facility] [address] [place] [address] Raiza Diana APRN, PEST CONTROL SPECIALIST [address] [place], [place] [id number] Medication Refill Social History Tobacco Use Types [...] on file Legal Sex Male 2:44 AM HOT SAW OPERATOR Gender Identity Not on file Sexual Orientation Not on file documented as of this encounter Miscellaneous Notes * Telephone Encounter - Raiza Diana APRN, PEST CONTROL SPECIALIST - 08/31/2021 12:07 PM CDT Rx approved [...] 19 04/12/2022 04/12/2022 04/22/2022 12:1 9 AM HOT SAW OPERATOR COVID - 19 Confirmed 04/12/2022 04/12/2022 022 12:16 AM HOT SAW OPERATOR COVID - 19 06/22/2022 06/22/2022 07/02/2022 12:1 6 AM HOT SAW OPERATOR COVID - 19 06/30/2023 06/30/2023 06/30/2023 2:00 PM HOT SAW OPERATOR Respiratory Rule-Out 06/08/2024 06/08/2024 025 4:15 PM HOT SAW OPERATOR Influenza 06/08/2024 06/08/2024 06/15/2024 12:1 6 AM HOT SAW OPERATOR Assessment Noted Time PHQ-9 Depression Total Score: 0 10/21/19 21 7:00 AM CDT documented as of this encounter Care Teams Neckties Painter Relationship Specialty Start Date End Date Bryan Hodgson MD [address] [place] [address] PCP - General 05/11/07 documented as of this encounter
--- OUTSIDE RECORDS SUMMARY | 2024-08-17 11:59 | XMS_ITS | Encounter Summary ---
Author Organization [facility] Address [address] [place] [address] Phone Care Team Providers Care Tire Sorter Name Role Phone Bryan Hodgson MD Primary Care Provider [phone] Reason for Visit * Reason Comments Medication Refill Encounter Details Date Type Department Care Team (Late st Contact Info) Description 02/19/2023 Refill [facility] [address] [place], [place] [address] Raiza Diana APRN, JOB TRAINING SUPERVISOR [address] [place], [place] [address] Medication Refill Social History Tobacco Use Types [...] on file Legal Sex Male 2:44 AM TEXT TRANSCRIBER Gender Identity Not on file Sexual Orientation Not on file documented as of this encounter Miscellaneous Notes * Telephone Encounter - Raiza Diana APRN, JOB TRAINING SUPERVISOR - 02/21/2023 8:36 PM CDT Rx approved [...] 01/19/23 Office Visit Raiza Diana APRN, AMY [facility] Showing recent visits within past 182 days and meeting all other requirements Future Appointments Date Type Provider Dept 03/15/23 Appointment Raiza Diana APRN, AMY [facility] Showing future appointments within next 90 [...] Dept 03/15/23 Appointment Raiza Diana APRN, AMY [facility] Showing future appointments within next 90 [...] 01/19/23 Office Visit Raiza Diana APRN, AMY [facility] Showing recent visits within past 182 days and meeting all other requirements Future Appointments Date Type Provider Dept 03/15/23 Appointment Raiza Diana APRN, AMY [facility] Showing future appointments within next 90 [...] 06/22/22 Office Visit Mita Otero APRN, AMY [facility] Showing recent visits within past 270 days and meeting all other requirements Future Appointments Date Type Provider Dept 03/15/23 Appointment Raiza Diana APRN, AMY [facility] Showing future appointments within next 90 [...] - 19 06/30/2023 06/30/2023 06/30/2023 2:00 PM TEXT TRANSCRIBER Respiratory Rule-Out 06/08/2024 06/08/2024 025 4:15 PM TEXT TRANSCRIBER Influenza 06/08/2024 06/08/2024 06/15/2024 12:1 6 AM TEXT TRANSCRIBER Assessment Noted Time PHQ-9 Depression Total Score: 0 10/21/19 21 7:00 AM CDT documented as of this encounter Care Teams Tire Sorter Relationship Specialty Start Date End Date Bryan Hodgson MD [address] [place] [address] PCP - General 05/11/07 documented as of this encounter
--- OUTSIDE RECORDS SUMMARY | 2024-08-17 11:59 | XMS_ITS | Encounter Summary ---
Author Organization [facility] Address [address] [place] [address] Phone Care Team Providers Care Loop Tacker Name Role Phone Bryan Hodgson MD Primary Care Provider [phone] Reason for Visit * Reason Comments Medication Refill Encounter Details Date Type Department Care Team (Late st Contact Info) Description 05/26/2022 Refill [facility] [address] [place] [address] Raiza Diana APRN, GRAIN ROASTER [address] [place], [place] [id number] Medication Refill Social History Tobacco Use Types [...] on file Legal Sex Male 2:44 AM FLIGHT CONTROLS ENGINEER Gender Identity Not on file Sexual Orientation Not on file documented as of this encounter Miscellaneous Notes * Telephone Encounter - Raiza Diana APRN, AMY - 05/26/2022 4:32 PM FLIGHT CONTROLS ENGINEER Rx approved and sent to pharmacy via e-prescribe. HT CONTROLS ENGINEER * Telephone Encounter - Janna Wills RN - 05/26/2022 4:19 PM CST Updated dose on order to reflect current dose. Disp Refills Start End insulin glargine (LANTUS, BASAGLAR) 100 UNIT/ML Solution Pen-injector 15 mL 2 01/28/2022 Sig - Route: 20 Units by Subcutaneous route every evening. - Subcutaneous Class: No Print Order Questions insulin glargine (LANTUS, BASAGLAR) 100 UNIT/ML Solution Pen-injector [[id number]] 46 Status: Active Ordering user: Emmy Rockwell [...] 90 days and meeting all other requirements HT CONTROLS ENGINEER documented in this encounter Plan of Treatment Not on file documented as of this encounter Visit Diagnoses Diagnosis Benign non-nodular prostatic hyperplasia with lower urinary tract symptoms documented in this encounter Additional Health Concerns Infection Onset Date Last Indicated Resolved Time COVID - 19 06/22/2022 06/22/2022 07/02/2022 12:1 6 AM FLIGHT CONTROLS ENGINEER COVID - 19 06/30/2023 06/30/2023 06/30/2023 2:00 PM FLIGHT CONTROLS ENGINEER Respiratory Rule-Out 06/08/2024 06/08/2024 025 4:15 PM FLIGHT CONTROLS ENGINEER Influenza 06/08/2024 06/08/2024 06/15/2024 12:1 6 AM FLIGHT CONTROLS ENGINEER Assessment Noted Time PHQ-9 Depression Total Score: 0 10/21/19 21 7:00 AM CDT documented as of this encounter Care Teams Loop Tacker Relationship Specialty Start Date End Date Bryan Hodgson MD [address] [place] [address] PCP - General 05/11/07 documented as of this encounter
--- OUTSIDE RECORDS SUMMARY | 2024-08-17 11:59 | XMS_ITS | Encounter Summary ---
Author Organization [facility] Address [address] [place] [address] Phone Care Team Providers Care Associate Professor Of Geography Name Role Phone Bryan Hodgson MD Primary Care Provider [phone] Reason for Visit * Reason Comments Medication Refill Encounter Details Date Type Department Care Team (Late st Contact Info) Description 09/06/2019 Refill [facility] [address] [place] [address] Bryan Hodgson MD [address], [place] [id number] Medication Refill Social History Tobacco Use Types [...] on file Legal Sex Male 2:44 AM WET POUR SUPERVISOR Gender Identity Not on file Sexual Orientation [...] MD 3 months ago Reactive depression (situational) [facility] Raiza Burris ROLL EXAMINER, JUNIOR LINUX ADMINISTRATOR 4 months ago Mixed hyperlipidemia [facility] Raiza Burris ROLL EXAMINER, JUNIOR LINUX ADMINISTRATOR 8 months ago Seborrheic dermatitis of scalp [facility] Bryan Mendez MD 10 months ago Type 2 diabetes mellitus with insulin therapy (HCC) [facility] Bryan Mendez MD Upcoming Appointments Future Appointments In 1 month Clinic, [place] Nurse, RN [facility] Veronica RAJAN In 1 month Raiza Diana APN, JUNIOR LINUX ADMINISTRATOR [facility] METAMKRISTI METAMKRISTI documented in this encounter Plan of Treatment Not on file documented as of this encounter Visit Diagnoses Diagnosis Reactive depression Dysthymic disorder documented in this encounter Additional Health Concerns Infection Onset Date Last Indicated Resolved Time COVID - 19 03/26/2020 03/26/2020 04/15/2020 12:1 8 AM WET POUR SUPERVISOR COVID - 19 Confirmed 03/26/2020 03/26/2020 020 12:18 AM WET POUR SUPERVISOR COVID - 19 04/12/2022 04/12/2022 04/22/2022 12:1 9 AM WET POUR SUPERVISOR COVID - 19 Confirmed 04/12/2022 04/12/2022 022 12:16 AM WET POUR SUPERVISOR COVID - 19 06/22/2022 06/22/2022 07/02/2022 12:1 6 AM WET POUR SUPERVISOR COVID - 19 06/30/2023 06/30/2023 06/30/2023 2:00 PM WET POUR SUPERVISOR Respiratory Rule-Out 06/08/2024 06/08/2024 025 4:15 PM WET POUR SUPERVISOR Influenza 06/08/2024 06/08/2024 06/15/2024 12:1 6 AM WET POUR SUPERVISOR Assessment Noted Time PHQ-9 Depression Total Score: 21 020 2:50 PM WET POUR SUPERVISOR documented as of this encounter Care Teams Associate Professor Of Geography Relationship Specialty Start Date End Date Bryan Hodgson MD [address] [place] [address] PCP - General 05/11/07 documented as of this encounter
--- OUTSIDE RECORDS SUMMARY | 2024-08-17 11:59 | XMS_ITS | Continuity of Care Document ---
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 please disp 3, 10 ml bottles - Active 90 day supply/ Please call patient when ready. dorzolamide 22.3 mg-timolol 6.8 mg/mL eye drops instill 1 gtt BID OU, disp 3, 10 ml bottles - Active 90 day supply/change in Sig from last RX pt uses tid. METFORMIN HCL (unknown strength) take 1 tablet by oral route 2 times every day with morning and evening meals Not Available - Active LANTUS SOLOSTAR (unknown strength) inject by subcutaneous route as per insulin protocol Not Available - Active TAMSULOSIN HCL (unknown strength) take 1 capsule by oral route 2 times every day 1/2 hour following the same meal each day Not Available - Active Procedures Procedure Date [...] EYE EXAM ESTABLISHED PAT EYE EXAM ESTABLISHED [facility], [facility] PARRY VISUAL FIELD EYE EXAM ESTABLISHED PATIENT, MEDICAL No FUNDUS PHOTOGRAPHY EYE EXAM ESTABLISHED [facility], MEDICAL PARRY VISUAL FIELD EYE EXAM ESTABLISHED [facility], [facility] Scan Image/ OCT, Glaucoma EYE EXAM ESTABLISHED PATIENT, MEDICAL No FUNDUS PHOTOGRAPHY EYE EXAM ESTABLISHED [facility], MEDICAL PARRY VISUAL FIELD EYE EXAM ESTABLISHED [facility], MEDICAL REFRACTION OPTIONAL UPDATE OFFICE/OUTPATIENT VISIT, EST Scan Image/ OCT, Glaucoma EYE EXAM ESTABLISHED [facility], MEDICAL PARRY VISUAL FIELD EYE EXAM ESTABLISHED PATIENT, MEDICAL Fe FUNDUS PHOTOGRAPHY EYE EXAM ESTABLISHED PATIENT, MEDICAL Oc Scan Image/ OCT, Glaucoma EYE EXAM ESTABLISHED PATIENT, MEDICAL Ju PARRY VISUAL FIELD EYE EXAM ESTABLISHED PAT, MEDICAL EYE EXAM ESTABLISHED PAT, MEDICAL GONIOSCOPY Scan Image/ OCT, Glaucoma EYE EXAM ESTABLISHED PATIENT, MEDICAL Ju PARRY VISUAL FIELD FUNDUS PHOTOGRAPHY EYE EXAM, NEW PATIENT MEDICAL 3 Advance Directives Directive Yes / No Effective Date File Name No Information Encounters Encounter Description Practice Location Reason(s) For Visit Diagnoses Date Provider Providers Copied on Encounter [facility], [address] [place] [address], [id number] , [place] tel:[phone] [facility] diabetic eye exam (chief complaint) Primary open-angle glaucoma, bilateral, severe stageType 2 diabetes mellitus without complicationsLo ng term (current) use of insulinPresence of intraocular lensMyopia, bilateralRegula r astigmatism, bilateralPresby opia 5 Sultana Jane. [address] [place] [address], [id number], [place]. tel:[phone] Referring Provider: Lucinda Oh, [address] [place] [address], [id number]. tel:[phone] [facility], [address] [place] [address], [id number] , [place] tel:[phone] [facility] No Information 5 Yancy Loyola. [address] [place] [address], [id number], [place]. tel:[phone] [facility], [address] [place] [address], [id number] , [place] tel:[phone] [facility] f/u POAG OU (chief complaint) Primary open-angle glaucoma, bilateral, severe stage 4 Sultana Jane. [address] [place] [address], [id number], . tel:[phone] Referring Provider: Lucinda Oh, [address] [place] [address], [id number]. tel:[phone] [facility], [address] [place] [address], [id number] , tel:[phone] [facility] No Information Aug-0 4 [facility]. [address] [place] [address], [id number], [place]. tel:[phone] [facility], [address] [place] [address], [id number] , tel:[phone] [facility] f/u POAG OU (chief complaint) Primary open-angle glaucoma, bilateral, moderate stage Aug-0 4 [facility]. [address] [place] [address], [id number], [place]. tel:[phone] Referring Provider: Lucinda Oh, [address] [place] [address], [id number]. tel:[phone] [facility], [address] [place] [address], [id number] , tel:[phone] [facility] diabetic eye exam (chief complaint) Primary open-angle glaucoma, bilateral, moderate stageType 2 diabetes mellitus without complicationsLo ng term (current) use of insulinPresence of intraocular lensMyopia, bilateralRegula r astigmatism, bilateralPresby opia 3 Yancy Loyola. [address] [place] [address], [id number], [place]. tel:[phone] Referring Provider: Nir Benavdies, [address] [place] [address], [id number]. tel:[phone] [facility], [address] [place] [address], [id number] , [place] tel:[phone] [facility] glaucoma, followup (chief complaint) Primary open-angle glaucoma, bilateral, moderate stage Aug- 3 [place] Nir. [address] [place] [address], [id number], [place]. tel:[phone] Referring Provider: Nir Benavides, [address] [place] [address], [id number]. tel:[phone] [facility], [address] [place] [address], [id number] , [place] tel:[phone] [facility] f/u POAG OU (chief complaint) Primary open-angle glaucoma, bilateral, moderate stage 2 [place] Nir. [address] [place] [address], [id number], [place]. tel:[phone] Referring Provider: Nir Benavides, [address] [place] [address], [id number]. tel:[phone] [facility], [address] [place] [address], [id number] , [place] tel:[phone] [facility] diabetic eye exam (chief complaint) Primary open-angle glaucoma, bilateral, moderate stageType 2 diabetes mellitus without complicationsLo ng term (current) use of insulinPresence of intraocular lensPresbyopiaM yopia, bilateralRegula r astigmatism, bilateral 2 [place] Nir. [address] [place] [address], [id number], [place]. tel:[phone] Referring Provider: Nir Benavides, [address] [place] [address], [id number]. tel:[phone] [facility], [address] [place] [address], [id number] , [place] tel:[phone] [facility] no problems with vision and no complaints (chief complaint)no problems with vision and no complaints (chief complaint) Primary open-angle glaucoma, bilateral, moderate stage Feb-0 - 2 Yancy Loyola. [address] [place] [address], [id number], [place]. tel:[phone] Referring Provider: Nir Benavides, [address] [place] [address], [address]. tel:[phone] [facility], [address] [place] [address], [id number] , [place] tel:[phone] [facility] no problems with vision and no complaints (chief complaint)no problems with vision and no complaints (chief complaint) Primary open-angle glaucoma, bilateral, moderate stage Sep-0 1 Yancy Loyola. [address] [place] [address], [id number], [place]. tel:[phone] [facility], [address] [place] [address], [id number] , [place] tel:[phone] [facility] Diabetes Examination (chief complaint)no problems with vision and no complaints (chief complaint)Di abetes Examination (chief complaint)no problems with vision and no complaints (chief complaint) Primary open-angle glaucoma, bilateral, moderate stageType 2 diabetes mellitus without complicationsLo ng term (current) use of insulinPresbyop iaMyopia, bilateralRegula r astigmatism, bilateral Mar-0 1 Brittany Bazan. [address] [place] [address], [id number], [place]. tel:[phone] [facility], [facility], [address] [place] [address], [id number] , [place] tel:[phone] [facility] red ,swollen ,Irritated and crusted shut (chief complaint)re d ,swollen ,Irritated and crusted shut (chief complaint) Acute bilateral conjunctivitisB lepharitis of right eyelidBlepharit is of left eyelid 0 Brittany Bazan. [address] [place] [address], [id number], [place]. tel:[phone] [facility], [facility], [address] [place] [address], [id number] , tel:[phone] [facility] decreased vision (chief complaint)de creased vision (chief complaint) Primary open-angle glaucoma, bilateral, moderate stage September- 0 Brittany Bazan. [address] [place] [address], [id number], [place]. tel:[phone] [facility], [address] [place] [address], [id number] , [place] tel:[phone] [facility] Diabetes Examination (chief complaint)no problems with vision and no complaints (chief complaint)Di abetes Examination (chief complaint)no problems with vision and no complaints (chief complaint) Primary open-angle glaucoma, bilateral, moderate stageLong term (current) use of insulinType 2 diabetes mellitus without complicationsMy opia, bilateralRegula r astigmatism, bilateralPresby opia 9 Brittany Bazan. [address] [place] [address], [id number], [place]. tel:[phone] [facility], [address] [place] [address], [id number] , tel:[phone] [facility] no problems with vision and no complaints (chief complaint)no problems with vision and no complaints (chief complaint) Primary open-angle glaucoma, bilateral, moderate stage 9 Brittany Bazan. [address] [place] [address], [id number], [place]. tel:[phone] [place] [address], [address] [place] [address], [id number] , [place] tel:[phone] [facility] no problems with vision and no complaints (chief complaint)no problems with vision and no complaints (chief complaint) Primary open-angle glaucoma, bilateral, moderate stage Aug-0 9 Brittany Bazan. [address] [place] [address], [id number], [place]. tel:[phone] [place] [address], [address] [place] [address], [id number] , tel:[phone] [facility] Diabetes Examination (chief complaint)no problems with vision and no complaints (chief complaint)Di abetes Examination (chief complaint)no problems with vision and no complaints (chief complaint) Primary open-angle glaucoma, bilateral, moderate stageType 2 diabetes mellitus without complicationsLo ng term (current) use of oral hypoglycemic drugsBenign neoplasm of right choroid 0 8 Brittany Bazan. [address] [place] [address], [id number], [place]. tel:[phone] [facility], [address] [place] [address], [id number] , tel:[phone] [facility] no problems with vision and no complaints (chief complaint)no problems with vision and no complaints (chief complaint) Primary open-angle glaucoma, bilateral, moderate stage 8 Brittany Bazan. [address] [place] [address], [id number], [place]. tel:[phone] [facility], [address] [place] [address], [id number] , tel:[phone] [facility] no problems with vision and no complaints (chief complaint)no problems with vision and no complaints (chief complaint) Primary open-angle glaucoma, bilateral, moderate stage Jul-3 8 Brittany Bazan. [address] [place] [address], [id number], [place]. tel:[phone] [place] [address], [address] [place] [address], [id number] , tel:[phone] [facility] Diabetes Examination (chief complaint)no problems with vision and no complaints (chief complaint)Di abetes Examination (chief complaint)no problems with vision and no complaints (chief complaint) Type 2 diabetes mellitus without complicationsLo ng term (current) use of oral hypoglycemic drugsPrimary open-angle glaucoma, bilateral, moderate stagePresence of intraocular lensPresbyopiaB enign neoplasm of right choroid 7 No Information [facility], [address] [place] [address], [id number] , [place] tel:[phone] [facility] no problems with vision and no complaints (chief complaint)no problems with vision and no complaints (chief complaint) Primary open-angle glaucoma, bilateral, moderate stage 7 No Information [facility], [address] [place] [address], [id number] , [place] tel:[phone] [facility] no problems with vision and no complaints (chief complaint)no problems with vision and no complaints (chief complaint) Primary open-angle glaucoma, bilateral, moderate stage 7 No Information [facility], [address] [place] [address], [id number] , [place] tel:[phone] [facility] no problems with vision and no complaints (chief complaint)no problems with vision and no complaints (chief complaint) Primary open-angle glaucoma, bilateral, moderate stage 6 No Information [facility], [address] [place] [address], [id number] , [place] tel:[phone] [facility] no problems with vision and no complaints (chief complaint)no problems with vision and no complaints (chief complaint) Primary open-angle glaucoma, moderate stage 6 No Information [facility], [address] [place] [address], [id number] , [place] tel:[phone] [facility] no problems with vision and no complaints (chief complaint)no problems with vision and no complaints (chief complaint) Primary open-angle glaucoma, moderate stage 6 No Information OFFICE/OUTPA TIENT VISIT, EST [facility], [address] [place] [address], [id number] , [place] tel:[phone] [facility] Diabetes Examination (chief complaint)no problems with vision and no complaints (chief complaint)Di abetes Examination (chief complaint)no problems with vision and no complaints (chief complaint) Type 2 diabetes mellitus without complicationsPr imary open-angle glaucoma, moderate stageType 2 diab w severe nonprlf diab rtnop w/o macular edemaBenign neoplasm of right choroid Oct-2 5 No Information [facility], [address] [place] [address], [id number] , tel: [phone] [facility] no problems with vision and no complaints (chief complaint)no problems with vision and no complaints (chief complaint) Primary open angle glaucomaModerat e stage glaucoma 5 No Information [facility], [address] [place] [address], [id number] , [place] tel: [phone] [facility] no problems with vision and no complaints (chief complaint)no problems with vision and no complaints (chief complaint) Benign neoplasm of choroidOpen-ang le glaucoma, unspecifiedGlau coma stage, unspecified 5 No Information Referring Provider: [address] [place], [address]. tel:[phone] [facility], [address] [place] [address], [id number] , tel: [phone] [facility] no problems with V/A and no complaints OU (chief complaint)no problems with V/A and no complaints (chief complaint) Open-angle glaucoma, unspecifiedMild Stage GlaucomaBenign neoplasm of choroidBenign neoplasm of choroid Oct-2 4 No Information Referring Provider: [address] [place], [address]. tel:[phone] [facility], [address] [place] [address], [id number] , tel:[phone] [facility] Diabetes Examination (chief complaint)no problems with V/A and no complaints (chief complaint) Open-angle glaucoma, unspecifiedMild Stage GlaucomaDiabete s Mellitus Type 2, Uncomplicated 4 Vasile Arnold. [address] [place], [place], [id number], [place]. tel:[phone] Referring Provider: Clayton Hickman, [address] [place], [address]. tel:[phone] [facility], [address] [place] [address], [id number] , tel: [phone] [facility] no problems with V/A and no complaints (chief complaint) Primary angle-closure glaucoma, unspecifiedPrim stan angle-closure glaucoma, unspecifiedMild Stage GlaucomaLens replaced by other means 4 Vasile Arnold. [address] [place], [place], [id number], . tel:[phone] Referring Provider: Clayton Hickman, [address] [place], [address]. tel:[phone] [facility], [address] [place] [address], [id number] , tel:[phone] [facility] no problems with V/A and no complaints (chief complaint) Lens replaced by other meansModerate stage glaucomaOpen-an gle glaucoma, unspecifiedMode rate stage glaucomaLens replaced by other means 3 Vasile Arnold. [address] [place], [place], [id number], . [phone] Referring Provider: [address] [place], [address]. tel:[phone] [facility], [address] [place] [address], [id number] , tel:[phone] [facility] Diabetes Examination (chief complaint)no problems with V/A and no complaints (chief complaint) Open-angle glaucoma, unspecifiedMild Stage GlaucomaDiabete s Mellitus Type 2, UncomplicatedOp en-angle glaucoma, unspecifiedMild Stage GlaucomaDiabete s Mellitus Type 2, Uncomplicated Mohan- 3 Vasile Arnold. [address] [place], [place], [id number], . tel:[phone] Referring Provider: [address] [place], [address]. tel:[phone] [facility], [facility], [address] [place], [place], [id number] , [place] tel:[phone] [facility] No Information 3 Vasile Arnold. [address] [place], [place], [id number], . tel:[phone] Referring Provider: [address] [place], [address]. tel:[phone] Family History Family Member Type Diagnosis Age At Onset Aunt Problem (finding) glaucoma Problem (finding) No Family history of HB P Mother Problem (finding) degenerative disorder o f macula Problem (finding) No Family history of Di abetes mellitus Problem (finding) No Family history of Ca taracts Payers Payer name Insurance type Covered constitution party ID Authoriza tion(s) Medicare [place] [id number] [facility] [id number] Social History Type Description Quantity Date Captured [...] Referred To: Bryan Hodgson MD [address], [place], [phone] Ordered: Referrals: Family Medicine. Bryan Hodgson MD. Assume care ordered Referral Referred To: Bryan Hodgson MD [address], [place], [id number] [phone] Ordered: Referrals: Family Medicine. Bryan Hodgson MD. Assume care ordered Appointment Donnell Wayne BOOKED Future Order: Radiology Order OC T - Optic Nerve ([id number]), Collected on: Ordered Future Order: Radiology Order OC T - Optic Nerve ([id number]), Collected on: Ordered History Of Present Illness [...] TID. Return 4 months RTD ON phtos. Impression/Plan - OA G stable. Significant damage OU. IOP is good. Continue Xalatan OU QHS, Xalatan OU QHS, Alphagan OU TID and Dorz Timolol OU TID.Return 4 months HVF. Follow up - slamp T [facility]F Impression/Plan - 1. OAG - sigificant damage OU. IOP is good today. ON today shows signicant thinning superior and inferior, mild thinning temporal, overall thicker or stable compared to 2014. Continue Xalatan OU QHS, Alphagan OU TID and Dorz. Timolol OU TID.2. Type 2 DM controlled by oral meds. 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 Important to keep BS controlled. 3. CR nevus OD - stable c/w photos. Follow up - 4 months slamp T Follow up - Return i n 4 months with [facility] for Refract T & D. Impression/Plan - IO P OU has been increasing slightly over last couple of exams. If start to notice some more defects on the testing or pressures keep increasing will need to refer to publishing specialist. Continue to use Alphagan P OU [...] nevus - Return in 4 months with [facility] for T and slamp gonio OCT Related [...] means - Return in 4 months with [facility] for T & D and Visual Field (24-2). Related to Lens replaced by other means - Return in 4 months with [facility] for T and slamp. Related to [...] complication, - Return in 4 month with [facility] for Gonioscopy and OCT (ON). Related [...] Type 2 diabetes mellitus without complications assessment pen[facility]ent[facility] (current) use of insul in assessment Presence of intraocular lens May assessment Myopia, bilateral assessment Regular astigmatism, bilateral J assessment Presbyopia Patient Care Teams Name Effective Dates (start - stop) Status Members No Information
--- OUTSIDE RECORDS SUMMARY | 2024-08-17 11:59 | XMS_ITS | Referral Summary ---
Author Organization [facility] Address [address] [place] [address] Care Team Providers Care Special Education Director Name Role Phone No, Physician Primary Care Provider Encounters Date Type Department Care Team Description 08/13/2024 3:08 PM CDT - 08/13/2024 11:59 PM CDT Hospital Encounter [facility] 1 [place] [address] Discharge Disposition: Discharge to home or self care 08/13/2024 12:44 PM CDT - 08/13/2024 11:59 PM CDT Hospital Encounter [facility]monology 1 [place] [address] Discharge Disposition: Discharge to home or self care 08/10/2024 Documentation [facility] 1 [place] [address] Evelyn Hale RN 08/07/2024 2:20 PM CDT - 08/07/2024 11:59 PM CDT Hospital Encounter [facility] [address] [place] [address] Discharge Disposition: Discharge to home or self care 08/07/2024 2:18 PM CDT - 08/07/2024 11:59 PM CDT Hospital Encounter [facility] [address] [place] [address] Discharge Disposition: Discharge to home or self care 08/07/2024 Orders Only [facility] Pulmonary [address] [facility] 8th [place] [address] [place] [address] Ruby Arce, EDSON Lung mass (Primary Dx) 08/07/2024 7:40 AM CDT - 08/07/2024 11:59 PM CDT Hospital Encounter [facility] [address] [place] [address] Lung disorder Discharge Disposition: Discharge to home or self care 08/07/2024 7:57 AM CDT - 08/07/2024 11:59 PM CDT Hospital Encounter [facility] Pulmonary [address] [facility] [address] [place] [address] Lung disorder Discharge Disposition: Discharge to home or self care 08/07/2024 9:00 AM CDT Office Visit [facility] Pulmonary [address] [facility] 8th [place] [address] [place] [address] Donis Dodeg Chi, MD Lung disorder 08/03/2024 Orders Only [facility] Pulmonary [address] [facility] 8th [place] [address] [place] [address] Donis Dodge Chi, MD Lung disorder (Primary [...] results best viewed via link to PDF [facility] Anika Peacock Laboratory of Surgical Pathology [facility], [place] [address] Note to Patients: This report may contain [...] Gender: Terrance : 1940 (Age: 84) Address: [address] [place], [place] [address] Hospital #: [id number] Taken:08/13/2024 Received:08/13/2024 Reported: 08/14/2024 Patient Type: [facility] Ancillary Service: Pulmonary Location: Physician(s): Grazyna [...] Surgical Pathology and Flow Cytometry Departments at [facility] as part of an ongoing software quality engineer program and in compliance with federally mandated [...] Surgical Pathology and Flow Cytometry Departments of [facility]. It has not been cleared or approved by the U. S. Food and Drug Administration. IMAGES AND SCANNED DOCUMENTS, IF INCLUDED, ONLY VIEWABLE IN PDF VERSION OF REPORT Luis Gomez MD LAB PATHOLOGY ORDERABLES Final Result PATHOLOGY [facility] 3rd Floor [place], [place] [phone] * Cytology (08/13/2024 2:40 PM CDT) Fluid (Lung (Cytology)) 08/13/2024 2:40 PM CDT 08/13/2024 3:23 PM CDT Narrative PATHOLOGY [facility] - 08/14/2024 4:17 PM CDT EPIC results best viewed via link to PDF [facility] Pe[facility] Laboratory [place] [address] Note to Patients: This report may contain [...] Gender: M : 1940 (Age: 84) Address: [address] [place] [address] Hospital #: [id number] Taken:08/13/2024 Received:08/13/2024 Reported: 08/14/2024 Patient Type: [facility] Ancillary Service: UNKNOWN Location: Physician(s): Luis [...] By Stephen Sykes DO 08/14/2024 16:17:45 ACOSTA Silvestre([facility]) Gross Description A. Lung, right, mass, endobronchial [...] Surgical Pathology and Flow Cytometry Departments at [facility] as part of an ongoing software quality engineer program and in compliance with federally mandated [...] Surgical Pathology and Flow Cytometry Departments of [facility]. It has not been cleared or approved by the U. S. Food and Drug Administration. Luis Gomez MD LAB CYTOLOGY ORDERABLES F inal Result PATHOLOGY [facility] 3rd Floor [place], [place] [phone] * Bronchoscopy - (08/13/2024 1:55 PM CDT) Anatomical Region Laterality Modality Other Narrative Procedure Note Luis Gomez MD - 08/13/2024 1:55 PM CDT [facility] Interventional Pulmonary Patient Name: Donnell Wayne Procedure [...] 1:07 PM CDT 08/13/2024 1:07 PM CDT us Luis Gomez MD LAB POCT ORDERABLES - DEV ICE Final Result Performing Organization Address [facility] Co de Phone Number RAJANI Lucio [facility] Department [place] [address] * CT Body Outside Reference (08/07/2024 2:20 PM CDT) Impressions [facility] - 08/07/2024 2:20 PM CDT These images are for Reference purposes only and have not been reviewed by [facility] Radiology. There will be no report generated by a [facility] Radiologist. Narrative [facility] - 08/07/2024 2:20 PM CDT EXAMINATION: Images For Reference Purposes Only us Donis Dodge MD IMG CT PROCEDURES Final Re sult Performing Organization Address [facility] de Phone Number [email or web address] * XR Outside Reference (08/07/2024 2:18 PM CDT) Impressions [facility] - 08/07/2024 2:18 PM CDT These images are for Reference purposes only and have not been reviewed by [facility] Radiology. There will be no report generated by a [facility] Radiologist. Narrative [facility] - 08/07/2024 2:18 PM CDT EXAMINATION: Images For Reference Purposes Only us Donis Dodge MD IMG XR PROCEDURES Final Re sult Performing Organization Address [facility] Co de Phone Number [email or web address] * Pulmonary [...] % [facility] FEV1/FVC PRE 63.5 % [facility] FEV1/FVC POST 63.0 % [facility] FRC PL PRE 4.86 L [facility] FRC PL %PRE PRED 143 % [facility] RV PRE 4.04 L [facility] RV %PRE PRED 159 % [facility] TLC PRE 5.58 L [facility] TLC %PRE PRED 89 % [facility] Anatomical Region Laterality Modality PFT 08/07/2024 8:13 AM CDT Narrative 08/07/2024 4:02 PM CDT Table formatting from the original result was not included. [facility] Division of Pulmonary & Critical Care Medicine [address] [place] [address]; [address]; [place] [address]; [phone] Pulmonary Function Laboratory Pulmonary Stress Test Simple/Oxygen [...] Work [distance (m) x body wt (kg)]: 57245 kg.m (normal >60,000kg.m) Oxygen required to maintain [...] with the written final report. PFT performed at:->[facility] Adult PFT Lab- [facility]-8D Procedure:->Spirometry Procedure:->Spirometry with [...] and %HbO2 is age dependent. However, the [facility] Pulmonary Function Laboratory defines hypoxemia as a PaO2 <56 mm Hg or a %HbO2 <89%. Starting on May of 2024 the [facility] Pulmonary Function Laboratory utilizes race neutral [...] sult from Last 3 Mon[place] [address] [facility] MEDICARE SUPPLEMENT MEDICARE [facility] Address: [address] [address] [place] [address] [facility] MEDICARE SUPPLEMENT Advance Directives For more information, please contact: [phone] Documents on File Type Date Recorded Patient Market Research Assistant Expl anation Advance Directives and Livin g Will 08/07/2024 9:12 AM Care Teams Special Education Director Relationship Specialty Start Date End Date No, Physician PCP - General 08/06/24
--- OUTSIDE RECORDS SUMMARY | 2024-08-17 11:59 | XMS_ITS | Clinical Summary ---
Author Organization [facility] Address [address] [place] [phone] Care Team Providers Care Data Solutions Architect Name Role Phone No, Physician Primary Care Provider [phone] Allergies No known active allergies Medications brimonidine [...] - 08/13/2024 11:59 PM CDT Hospital Encounter [facility] Radiology 1 [place] [address] Discharge Disposition: Discharge to home or self care 08/13/2024 12:44 PM CDT - 08/13/2024 11:59 PM CDT Hospital Encounter [facility] Interventional Pulmonology 1 [place] [address] Discharge Disposition: Discharge to home or self care 08/10/2024 Documentation [facility] Interventional Pulmonology 1 [place] [address] Evelyn Hale RN 08/07/2024 2:20 PM CDT - 08/07/2024 11:59 PM CDT Hospital Encounter [facility] Radiology [facility] ([facility]) [address] [place] [address] Discharge Disposition: Discharge to home or self care 08/07/2024 2:18 PM CDT - 08/07/2024 11:59 PM CDT Hospital Encounter [facility] Radiology [facility] ([facility]) [address] [place] [address] Discharge Disposition: Discharge to home or self care 08/07/2024 9:00 AM CDT Office Visit [facility] Pulmonary [address] [facility] 8th [place] [address] [place] [address] Donis Dodge Chi, MD Lung disorder 08/07/2024 7:57 AM CDT - 08/07/2024 11:59 PM CDT Hospital Encounter [facility] Pulmonary [address] [facility] [address] [place] [address] Lung disorder Discharge Disposition: Discharge to home or self care 08/07/2024 7:40 AM CDT - 08/07/2024 11:59 PM CDT Hospital Encounter [facility] Radiology [facility] [address] [place] [address] Lung disorder Discharge Disposition: Discharge to home or self care 08/07/2024 Orders Only [facility] Pulmonary [address] [facility] Advanced Medicine 8th [place] [address] [place] [address] Ruby Arce, RMA Lung mass (Primary Dx) 08/03/2024 Orders Only [facility] Pulmonary [address] [facility] Advanced [facility] 8th [place] [address] [place] [address] Donis Dodge Chi, MD Lung disorder (Primary [...] results best viewed via link to PDF [facility] Anika Peacock Laboratory of Surgical Pathology [facility], [place] [address] Note to Patients: This report may contain [...] Gender: M : 1940 (Age: 84) Address: [address] [place] [address] Hospital #: [id number] Taken:08/13/2024 Received:08/13/2024 Reported: 08/14/2024 Patient Type: [facility] Ancillary Service: Pulmonary Location: Physician(s): Grazyna Higgins [...] Surgical Pathology and Flow Cytometry Departments at [facility] as part of an ongoing quality technician program and in compliance with federally mandated [...] Surgical Pathology and Flow Cytometry Departments of [facility]. It has not been cleared or approved by the U. S. Food and Drug Administration. IMAGES AND SCANNED DOCUMENTS, IF INCLUDED, ONLY VIEWABLE IN PDF VERSION OF REPORT Luis Gomez MD LAB PATHOLOGY ORDERABLES Final Result PATHOLOGY [facility] 3rd Floor [place], [place] [phone] * Cytology (08/13/2024 2:40 PM CDT) Fluid (Lung (Cytology)) 08/13/2024 2:40 PM CDT 08/13/2024 3:23 PM CDT Narrative PATHOLOGY [facility] - 08/14/2024 4:17 PM CDT EPIC results best viewed via link to PDF [facility] Laboratory [place] [address] Note to Patients: This report may contain [...] Gender: M : 1940 (Age: 84) Address: [address] [place], [place] [address] Hospital #: [id number] Taken:08/13/2024 Received:08/13/2024 Reported: 08/14/2024 Patient Type: [facility] Ancillary Service: UNKNOWN Location: Physician(s): Luis Gomez [...] By Stephen Sykes DO 08/14/2024 16:17:45 ACOSTA Silvestre([facility]) Gross Description A. Lung, right, mass, endobronchial [...] Surgical Pathology and Flow Cytometry Departments at [facility] as part of an ongoing quality technician program and in compliance with federally mandated [...] Surgical Pathology and Flow Cytometry Departments of [facility]. It has not been cleared or approved by the U. S. Food and Drug Administration. Luis Gomez MD LAB CYTOLOGY ORDERABLES F inal Result PATHOLOGY [facility] 3rd Floor [place], [place] [phone] * Bronchoscopy - (08/13/2024 1:55 PM CDT) Anatomical Region Laterality Modality Other Narrative Procedure Note Luis Gomez MD - 08/13/2024 1:55 PM CDT [facility] Interventional Pulmonary Patient Name: Donnell Wayne Procedure [...] DEV ICE Final Result Performing Organization Address [facility] Co de Phone Number RAJANI RAMACHANDRAN [facility] Department [place] [address] * CT Body Outside Reference (08/07/2024 2:20 PM CDT) Impressions [facility] - 08/07/2024 2:20 PM CDT These images are for Reference purposes only and have not been reviewed by [facility] Radiology. There will be no report generated by a [facility] Radiologist. Narrative [facility] - 08/07/2024 2:20 PM CDT EXAMINATION: Images For Reference Purposes Only Donis Dodge MD IMG CT PROCEDURES Final Re sult Performing Organization Address City/[facility]/ZIP Co de Phone Number [email or web address] * XR Outside Reference (08/07/2024 2:18 PM CDT) Impressions [facility] - 08/07/2024 2:18 PM CDT These images are for Reference purposes only and have not been reviewed by [facility] Radiology. There will be no report generated by a [facility] Radiologist. Narrative [facility] - 08/07/2024 [...] from the original result was not included. [facility] Division of Pulmonary & Critical Care Medicine [address] [place] [address]; [place] [address]; [place] [address]; [phone] Pulmonary Function Laboratory Pulmonary Stress Test Simple/Oxygen [...] Work [distance (m) x body wt (kg)]: 23875 kg.m (normal >60,000kg.m) Oxygen required to maintain [...] with the written final report. PFT performed at:->[facility] Adult PFT Lab- [facility]8D Procedure:->Spirometry Procedure:->Spirometry with [...] and %HbO2 is age dependent. However, the [facility] Pulmonary Function Laboratory defines hypoxemia as a PaO2 <56 mm Hg or a %HbO2 <89%. Starting on May of 2024 the [facility] Pulmonary Function Laboratory utilizes race [...] sult from Last 3 Months Insurance MEDICARE [facility] MEDICARE SUPPLEMENT MEDICARE [facility] MEDICARE SUPPLEMENT Advance Directives For more information, please contact: [phone] Documents on File Type Date Recorded Patient Associate Professor Of Chemistry Expl anation Advance Directives and Sharmin bill Will 08/07/2024 9:12 AM Care Teams Data Solutions Architect Relationship Specialty Start Date End Date No, Physician PCP - General 08/06/24
--- OUTSIDE RECORDS SUMMARY | 2024-08-17 11:59 | XMS_ITS | Encounter Summary ---
Author Organization [facility] Address [address] [place] [address] Phone Care Team Providers Care Body And Frame Man Name Role Phone Bryan Hodgson MD Primary Care Provider [phone] Reason for Visit * Reason Comments Medication Refill Encounter Details Date Type Department Care Team ([facility] st Contact Info) Description 03/22/2022 Refill [facility] [address] [place] [address] Bryan Hodgson MD [address] [place], [place] [address] Medication Refill Social History Tobacco Use Types [...] on file Legal Sex Male 2:44 AM DIRECTOR OF RELIGIOUS LIFE Gender Identity Not on file Sexual Orientation Not on file documented as of this encounter Plan of Treatment Not on file documented as of this encounter Visit Diagnoses Not on filedocumented in this encounter Additional Health Concerns Infection Onset Date Last Indicated Resolved Time COVID - 19 04/12/2022 04/12/2022 04/22/2022 12:1 9 AM DIRECTOR OF RELIGIOUS LIFE COVID - 19 Confirmed 04/12/2022 04/12/202225/2 022 12:16 AM DIRECTOR OF RELIGIOUS LIFE COVID - 19 06/22/2022 06/22/2022 07/02/2022 12:1 6 AM DIRECTOR OF RELIGIOUS LIFE COVID - 19 06/30/2023 06/30/2023 06/30/2023 2:00 PM DIRECTOR OF RELIGIOUS LIFE Respiratory Rule-Out 06/08/2024 06/08/2024 025 4:15 PM DIRECTOR OF RELIGIOUS LIFE Influenza 06/08/2024 06/08/2024 06/15/2024 12:1 6 AM DIRECTOR OF RELIGIOUS LIFE Assessment Noted Time PHQ-9 Depression Total Score: 0 10/21/19 21 7:00 AM CDT documented as of this encounter Care Teams Body And Frame Man Relationship Specialty Start Date End Date Bryan Hodgson MD [address] [place] [address] PCP - General 05/11/07 documented as of this encounter
--- OUTSIDE RECORDS SUMMARY | 2024-08-17 11:59 | XMS_ITS | Encounter Summary ---
Author Organization [facility] Address [address] [place] [address] Phone Care Team Providers Care Fleet Service Clerk Name Role Phone Bryan Hodgson MD Primary Care Provider [phone] Reason for Visit * Reason Comments Medication Refill Encounter Details Date Type Department Care Team (Late st Contact Info) Description 11/03/2021 Refill [facility] [address] [place] [address] Bryan Hodgson MD [address] [place], [place] [address] Medication Refill Social History Tobacco Use Types [...] on file Legal Sex Male 2:44 AM TEXTILES SALES REPRESENTATIVE Gender Identity Not on file Sexual Orientation Not on file COVID-19 Exposure Response Date Recorded In the last 10 days, have yo u been in contact with someone who was confirmed or suspected to have Coronavirus/COVID-19? No / Unsure 10/26/2021 7:55 AM CDT documented as of this encounter Miscellaneous Notes * Telephone Encounter - Raiza Diana, SONG LYRICIST, VACUUM FORM OPERATOR - 11/04/2021 2:16 PM CDT Rx [...] 19 04/12/2022 04/12/2022 04/22/2022 12:1 9 AM TEXTILES SALES REPRESENTATIVE COVID - 19 Confirmed 04/12/2022 04/12/2022 022 12:16 AM TEXTILES SALES REPRESENTATIVE COVID - 19 06/22/2022 06/22/2022 07/02/2022 12:1 6 AM TEXTILES SALES REPRESENTATIVE COVID - 19 06/30/2023 06/30/2023 06/30/2023 2:00 PM TEXTILES SALES REPRESENTATIVE Respiratory Rule-Out 06/08/2024 06/08/2024 025 4:15 PM TEXTILES SALES REPRESENTATIVE Influenza 06/08/2024 06/08/2024 06/15/2024 12:1 6 AM TEXTILES SALES REPRESENTATIVE Assessment Noted Time PHQ-9 Depression Total Score: 0 10/21/19 21 7:00 AM CDT documented as of this encounter Care Teams Fleet Service Clerk Relationship Specialty Start Date End Date Bryan Hodgson MD [facility] [place] [address] PCP - General 05/11/07 documented as of this encounter
--- OUTSIDE RECORDS SUMMARY | 2024-08-17 11:59 | XMS_ITS | Encounter Summary ---
Author Organization [facility] Address [address] [place] [address] Phone Care Team Providers Care Optical Model Maker And Tester Name Role Phone Bryan Hodgson MD Primary Care Provider Reason for Visit * Reason Comments Medication Refill Encounter Details Date Type Department Care Team ([facility] st Contact Info) Description 07/21/2022 Refill [facility] [address] [place], [place] [address] Raiza Diana, HARBORMASTER, CAR SALTER [address] [place], [place] [address] Medication Refill Social History Tobacco Use Types [...] on file Legal Sex Male 2:44 AM ALCOHOLISM WORKER Gender Identity Not on file Sexual Orientation [...] - 19 06/30/2023 06/30/2023 06/30/2023 2:00 PM ALCOHOLISM WORKER Respiratory Rule-Out 06/08/2024 06/08/2024 025 4:15 PM ALCOHOLISM WORKER Influenza 06/08/2024 06/08/2024 06/15/2024 12:1 6 AM ALCOHOLISM WORKER Assessment Noted Time PHQ-9 Depression Total Score: 0 10/21/19 21 7:00 AM CDT documented as of this encounter Care Teams Optical Model Maker And Tester Relationship Specialty Start Date End Date Bryan Hodgson MD [facility] [address] PCP - General 05/11/07 documented as of this encounter
--- OUTSIDE RECORDS SUMMARY | 2024-08-17 11:59 | XMS_ITS | Encounter Summary ---
Author Organization [facility] Address [address] [place] [address] Phone Care Team Providers Care Marketing Operations Manager Name Role Phone Bryan Hodgson MD Primary Care Provider [phone] Reason for Visit * Reason Comments Medication Refill Encounter Details Date Type Department Care Team (Late st Contact Info) Description 12/10/2019 Refill [facility] [address] [place] [address] Bryan Hodgson MD [address] [place], [place] [address] Medication Refill Social History Tobacco Use Types [...] on file Legal Sex Male 2:44 AM BANKING MANAGEMENT CONSULTING MANAGER Gender Identity Not on file Sexual [...] 19 03/26/2020 03/26/2020 04/15/2020 12:1 8 AM BANKING MANAGEMENT CONSULTING MANAGER COVID - 19 Confirmed 03/26/2020 03/26/2020 020 12:18 AM BANKING MANAGEMENT CONSULTING MANAGER COVID - 19 04/12/2022 04/12/2022 04/22/2022 12:1 9 AM BANKING MANAGEMENT CONSULTING MANAGER COVID - 19 Confirmed 04/12/2022 04/12/2022 022 12:16 AM BANKING MANAGEMENT CONSULTING MANAGER COVID - 19 06/22/2022 06/22/2022 07/02/2022 12:1 6 AM BANKING MANAGEMENT CONSULTING MANAGER COVID - 19 06/30/2023 06/30/2023 06/30/2023 2:00 PM BANKING MANAGEMENT CONSULTING MANAGER Respiratory Rule-Out 06/08/2024 06/08/2024 025 4:15 PM BANKING MANAGEMENT CONSULTING MANAGER Influenza 06/08/2024 06/08/2024 06/15/2024 12:1 6 AM BANKING MANAGEMENT CONSULTING MANAGER Assessment Noted Time PHQ-9 Depression Total Score: 21 020 2:50 PM BANKING MANAGEMENT CONSULTING MANAGER documented as of this encounter Care Teams Marketing Operations Manager Relationship Specialty Start Date End Date Bryan Hodgson MD [address] [place] [address] PCP - General 05/11/07 documented as of this encounter
--- OUTSIDE RECORDS SUMMARY | 2024-08-17 11:59 | XMS_ITS | Encounter Summary ---
Author Organization [facility] Address [address] [place] [address] Phone Care Team Providers Care Viscose Cellar Worker Name Role Phone Bryan Hodgson MD Primary Care Provider [phone] Encounter Details Date Type Department Care Team ([facility] st Contact Info) Description 07/06/2024 Telephone RADIOLOGY NAVIGATOR [address] [place], [place] [address] Identified, No Provider Social History Tobacco Use [...] 10:58 AM CST Patient had a CXR ([id number]) performed during a ED visit on 06/13/24, [...] imaging report. Thank you, Radiology Results Navigator LINE INSTALLER SUPERVISOR documented in this encounter Plan of Treatment Not on file documented as of this encounter Visit Diagnoses Not on filedocumented in this encounter Care Teams Viscose Cellar Worker Relationship Specialty Start Date End Date Bryan Hodgson MD [address] [place] [address] PCP - General Family Medicine 08/24/22 documented as of this encounter
--- OUTSIDE RECORDS SUMMARY | 2024-08-17 11:59 | XMS_ITS | Encounter Summary ---
Author Organization [facility] Address [address] [place] [address] Phone Care Team Providers Care Airport Utility Worker Name Role Phone Bryan Hodgson MD Primary Care Provider [phone] Encounter Details Date Type Department Care Team (Late st Contact Info) Description 07/19/2024 Results Follow-Up [facility] - Primary Care - [place] [address] [place] [address] Raiza Diana APRN, ASSISTANT MEDIA PLANNER [address], [place] [id number] Social History Tobacco Use Types Packs/Day Years [...] on file Legal Sex Male 2:44 AM HAND CANDLE MOLDER Gender Identity Not on file Sexual Orientation Not on file documented as of this encounter Progress Notes * Raiza Diana APRN, ASSISTANT MEDIA PLANNER - 07/19/2024 3:52 PM CDT Patient notified, she phone note documented in this encounter Plan of Treatment Not on file documented as of this encounter Visit Diagnoses Not on filedocumented in this encounter Additional Health Concerns Assessment Noted Time PHQ-9 Depression Total Score: 0 06/12/19 25 8:58 AM HAND CANDLE MOLDER documented as of this encounter Care Teams Airport Utility Worker Relationship Specialty Start Date End Date Bryan Hodgson MD [address] [place] [address] PCP - General 05/11/07 documented as of this encounter
--- OUTSIDE RECORDS SUMMARY | 2024-08-17 11:59 | XMS_ITS | Encounter Summary ---
Author Organization [facility] Address [address] [place] [address] Phone Care Team Providers Care Manager Surgical Name Role Phone Bryan Hodgson MD Primary Care Provider [phone] Reason for Visit * Reason Comments Medication Refill Encounter Details Date Type Department Care Team (Late st Contact Info) Description 07/17/2020 Refill [facility] [address] [place] [address] Raiza Diana, GERMAN INSTRUCTOR, SENIOR BUSINESS OBJECTS DEVELOPER [address], [place] [id number] Medication Refill Social History Tobacco Use Types [...] on file Legal Sex Male 2:44 AM TRUCKING SUPERVISOR Gender Identity Not on file Sexual Orientation Not on file documented as of this encounter Plan of Treatment Not on file documented as of this encounter Visit Diagnoses Diagnosis Benign non-nodular prostatic hyperplasia with lower urinary tract symptoms documented in this encounter Additional Health Concerns Infection Onset Date Last Indicated Resolved Time COVID - 19 04/12/2022 04/12/2022 04/22/2022 12:1 9 AM TRUCKING SUPERVISOR COVID - 19 Confirmed 04/12/2022 04/12/2022 022 12:16 AM TRUCKING SUPERVISOR COVID - 19 06/22/2022 06/22/2022 07/02/2022 12:1 6 AM TRUCKING SUPERVISOR COVID - 19 06/30/2023 06/30/2023 06/30/2023 2:00 PM TRUCKING SUPERVISOR Respiratory Rule-Out 06/08/2024 06/08/2024 025 4:15 PM TRUCKING SUPERVISOR Influenza 06/08/2024 06/08/2024 06/15/2024 12:1 6 AM TRUCKING SUPERVISOR Assessment Noted Time PHQ-9 Depression Total Score: 020 2:50 PM TRUCKING SUPERVISOR documented as of this encounter Care Teams Manager Surgical Relationship Specialty Start Date End Date Bryan Hodgson MD [address] [place] [address] PCP - General 05/11/07 documented as of this encounter
--- OUTSIDE RECORDS SUMMARY | 2024-08-17 11:59 | XMS_ITS | Encounter Summary ---
Author Organization [facility] Address [address] [place] [address] Phone Care Team Providers Care Driver Engineer Name Role Phone Bryan Hodgson MD Primary Care Provider [phone] Reason for Referral * - Closed Specialty Diagnoses / Procedures Referred By Ana guillory Referred To Contact Diagnoses Pain Procedures XR KNEE RIGHT 3 VIEWS Raiza Diana APRN [address] [place] [address] Phone: tel: fax: [facility] [address] [place] [address] Phone: tel: Referral ID Status Reason Start Date Expiration Date Visits Re quested Visits Authorized [id number] Closed 10/20/2023 1 1 Encounter Details Date Type Department Care Team ([facility] Contact Info) Description 10/20/2023 Transcribe Orders Non [facility] Referring Docs Raiza Diana APRN [address] [place] [address] Pain (Primary Dx) Social History Tobacco Use [...] 8:13 AM CDT Accession Exam Completed Date/Time [id number] XR KNEE RIGHT 3 VIEWS 10/20/2023 07:29 [...] tibiofemoral and patellofemoral compartments. There is bilateral [id number] appearance of the medial tibiofemoral compartments. There is osteophytic spurring of the tibial spines. No sizable suprapatellar joint knee joint effusion on either side. Electronically Signed and Authenticated by Linden Lamb MD 10/20/2023 08:13 Procedure Note Linden Lamb MD - 10/20/2023 Accession Exam CompletedDate/Time [id number] XR KNEE RIGHT 3 VIEWS 407:29 Requesting: [...] themedial tibiofemoral and patellofemoral compartments. There is nkrbyjypimagv-[id number] appearance of the medial tibiofemoral compartments. There is osteophytic spurring of the tibialspines. No sizable suprapatellar joint knee joint effusion on eitherside. 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
--- OUTSIDE RECORDS SUMMARY | 2024-08-17 11:59 | XMS_ITS | Encounter Summary ---
Author Organization [facility] Address [address] 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 Gender Identity Not on file Sexual Orientation Not on file documented as of this encounter Plan of Treatment Not on file documented as of this encounter Visit Diagnoses Not on filedocumented in this encounter Additional Health Concerns Infection Onset Date Last Indicated Resolved Time COVID - 19 04/12/2022 04/12/2022 04/22/2022 12:1 9 AM NETWORK PROJECT MANAGER COVID - 19 Confirmed 04/12/2022 04/12/202205/02/ 022 12:16 AM NETWORK PROJECT MANAGER COVID - 19 06/22/2022 06/22/2022 07/02/2022 12:1 6 AM NETWORK PROJECT MANAGER COVID - 19 06/30/2023 06/30/2023 06/30/2023 2:00 PM NETWORK PROJECT MANAGER Respiratory Rule-Out 06/08/2024 06/08/2024 025 4:15 PM NETWORK PROJECT MANAGER Influenza 06/08/2024 06/08/2024 06/15/2024 12:1 6 AM NETWORK PROJECT MANAGER Assessment Noted Time PHQ-9 Depression Total Score: 020 2:50 PM NETWORK PROJECT MANAGER documented as of this encounter Care Teams Mc Kay Stitcher Relationship Specialty Start Date End Date Bryan Hodgson MD [facility] [place]note [address] [place] [address] PCP - General 05/11/07 documented as of this encounter
[2024-08-17 12:20] LABS: Basophils Percent Auto 0.4 % (0.2-1.2); Eosinophils Absolute Auto 0.1 K/mm3 (0-0.3); Eosinophils Percent Auto 1.4 % (0-4.4); Hematocrit 46.3 % (42.0-52.0); Hemoglobin 14.7 g/dL (14.0-18.0); Immature Granulocyte Absolute 0.04 K/mm3 (0.00-0.031); Immature Granulocyte Percent A 0.5 % (0-0.5); Lymphocytes Percent Auto 20.3 % (18.3-44.2); Mean Corpuscular HGB Conc 31.7 g/dl (32-36); Mean Corpuscular Hemoglobin 28.7 pg (26-34); Mean Corpuscular Volume 90.4 fl (80-100); Monocytes Absolute Auto 0.7 K/mm3 (0.1-0.6); Monocytes Percent Auto 8.6 % (2.6-8.5); Neutrophils Absolute Auto 5.4 K/mm3 (1.3-6.7); Neutrophils Percent Auto 68.8 % (45.5-73.1); Platelet Count Result 329 k/mm3 (150-375); Red Blood Count 5.12 M/mm3 (4.6-6.20); White Blood Count 7.9 K/mm3 (4.5-10.0)
[2024-08-17 12:33] LABS: Alanine Aminotransferase 14 U/L (6-50); Albumin Level 3.8 g/dL (3.5-5.1); Alkaline Phosphatase 105 U/L (38-126); Anion Gap 9 mmol/L (4-12); Aspartate Amino Transferase 15 U/L (17-59); Bilirubin,Total 0.5 mg/dL (0.2-1.3); Blood Urea Nitrogen 10 mg/dL (9-20); Calcium 9.2 mg/dL (8.4-10.2); Carbon Dioxide 31 mmol/L (22-30); Chloride 98 mmol/L (98-107); Estimated Glomerular Filt Rate > 60; Glucose 365 mg/dL (65-110); Potassium 4.1 mmol/L (3.4-5.0); Sodium 138 mmol/L (137-145)
[2024-08-17 12:35] LABS: Hemoglobin A1C 12.3 % (<5.7)
== END 2024-08-17 11:47 | disposition home or self-care (01) ==
PROVIDERS: PCP Family Medicine; Visit Provider Nurse Practitioner Adult Health
DX: J98.4 Other disorders of lung (principal); E11.9 Type 2 diabetes mellitus without complications; R91.8 Other nonspecific abnormal finding of lung field
CPT/HCPCS: 36415; 80053; 83036; 85025